=== PATIENT | male | born 1965 | race Two or more races ===

== ENCOUNTER 2021-02-03 16:22 | Outpatient (REF) | payer MEDICAID, SELFPAY ==
[2021-02-03 17:18] LABS: MANUAL DIFF FLAG NO
[2021-02-03 17:23] LABS: Basophils Absolute Auto 0.1 X10*3/uL (0.0-0.2); Basophils Percent Auto 0.8 % (0-2); Eosinophils Absolute Auto 0.2 X10*3/uL (0.0-0.4); Eosinophils Percent Auto 2.4 % (0-4); Hematocrit 46.9 % (42-52); Hemoglobin 15.2 g/dl (14.0-18.0); Imm Gran Abs Auto 0.03 X10*3/uL (0.00-0.03); Imm Gran Pct Auto 0.5 % (0.0-0.4); Lymphocytes Absolute Auto 1.8 X10*3/uL (1.2-4.9); Lymphocytes Percent Auto 27.2 % (20-40); Mean Corpuscular HGB Conc 32.4 g/dl (31.0-36.0); Mean Corpuscular Volume 92.5 fL (80-98); Mean Platelet Volume 10.7 fL (9.4-12.4); Monocytes Absolute Auto 0.5 X10*3/uL (0.1-1.2); Monocytes Percent Auto 7.9 % (2-11); Neutrophils Percent Auto 61.2 % (45-73); Platelet Count 216 X10*3/uL (160-400); Red Blood Count 5.07 X10*6/uL (4.60-5.80); Red Cell Distribution Width 12.7 % (11.0-16.0); White Blood Count 6.6 X10*3/uL (4.8-10.8)
[2021-02-03 17:52] LABS: Amylase 65 U/L (28-100); Anion Gap 15 (12-20); Blood Urea Nitrogen 19 mg/dL (9-16); C Reactive Protein 0.06 mg/dL (< or = 0.50); Calcium 9.5 mg/dL (8.4-10.2); Carbon Dioxide 25 mmol/L (22-29); Chloride 105 mmol/L (96-108); Estimated Glomerular Filt Rate 58; Glucose Random 84 mg/dL (60-115); Potassium 4.8 mmol/L (3.3-5.1); Sodium 140 mmol/L (135-145)
== END 2021-02-03 16:23 | disposition home or self-care (01) ==
LOC: HO.LAB 16:22
PROVIDERS: PCP Internal Medicine; Visit Provider Internal Medicine
DX: I10 Essential (primary) hypertension (principal); R68.2 Dry mouth, unspecified; M45.9 Ankylosing spondylitis of unspecified sites in spine
CPT/HCPCS: 36415; 80048; 82150; 85025; 86140

== ENCOUNTER 2021-02-06 12:24 | Emergency (ER) | payer MEDICAID, SELFPAY ==
--- NOTE | ~2021-02-06 | XR_ITS ---
EXAMINATION: XR CHEST CLINICAL INFORMATION: Chest pain COMPARISON: Chest x-ray 01/30/2020 TECHNIQUE: Frontal view of the chest was obtained. FINDINGS: No significant abnormality is noted involving the heart, lungs, mediastinum, bony thorax or soft tissues. XR/XR chest 1V IMPRESSION: Unremarkable chest examination.
[2021-02-06 12:49] VITALS: BP 135/86; PULSE 83; RESP 16; TEMP 36.6; O2SAT 99; BMI 24.4
[2021-02-06 12:57] VITALS: PULSE 94
--- NOTE | 2021-02-06 13:12 | ED.ARRPALP ---
HPI - Arrhythmia/Palpitations General Chief Complaint: Arrhythmia/Palpitations Stated Complaint: RAPID HEART RATE Time Seen by Provider: 02/06/21 12:48 History of Present Illness HPI narrative: This is a 55 years old man presented to the emergency department with a chief complaint of palpitations. Denies any shortness of breath, denies any fever. In the triage we did an EKG a was noted to be in SVT by the time I was brought in the treatment room was in sinus rhythm. He tells me that has been having intermittent the palpitation he has history of hypertension arthritis. complaint: rapid heart beat and heart racing Onset (ago): day(s) (1 day) Duration: intermittent Severity: moderate Context: occurred during rest Related Data Allergies Allergy/AdvReac Type Severity Reaction Status Date / Time No Known Allergies Allergy Verified 02/06/21 12:56 Review of Systems Review of Systems: Yes all other systems are reviewed and are negative Cardiovascular: Cardiovascular: Reports as per HPI Respiratory: Respiratory: Reports no additional respiratory complaints Gastrointestinal: Gastrointestinal: Reports no additional gastrointestinal complaints Neurologic: Reports system reviewed and no additional complaints, except as documented PMF Past Medical History Medical History Arthritis High cholesterol HTN (hypertension) Social History Social History Smoking Status: Never smoker Use of substances other than those prescribed or required for medical reasons: No Advance Directives: No Advance Directives Information Provided: No Physical Exam Vital Signs: Vital Signs: Last Vital Signs Temp 97.8 F 02/06/21 12:49 Pulse 64 02/06/21 14:41 Resp 14 02/06/21 14:41 BP 116/85 02/06/21 14:41 Pulse Ox 63 L 02/06/21 14:41 Body Mass Index 24.4 Const: Other: He looks well , not in distress sitting in the stretcher Orientation/consciousness: oriented to person, oriented to place, oriented to time and patient oriented x3 HENMT: Head: Yes normal to inspection and Yes No palpable skull fracture present Eyes: General: appearance normal, both eyes and all related structures Neck: Neck: Yes normal visual inspection and Yes full ROM Chest: Chest palpation & inspection: normal inspection of the chest and normal palpation of entire chest wall Resp: Effort & Inspection: normal respiratory effort and able to speak in complete sentences Cardio: Jugular venous distension: no JVD Rate: regular rate GI: Inspection: Yes normal to inspection Skin: General skin exam: no rashes or lesions noted and elasticity normal Neuro: General: oriented to person, oriented to place, oriented to time and patient oriented x3 Course Reevaluation(s) Reevaluation #1: Patient remaining in normal sinus rhythm ,I spoke with PCP Dr Barajas his PCP he will follow up,repeat ekg showes NSR 60.Per PCP will increase metoprolol to 50 BID Time: 15:04 MDM - Arrhythmia/Palpitations Lab Data Result diagrams: 02/06/21 13:09 02/06/21 13:08 Labs: Lab Results 02/06/21 02/06/21 02/06/21 Range/Units 13:08 13:09 13:09 WBC 5.6 (4.8-10.8) X10*3/uL RBC 5.12 (4.60-5.80) X10*6/uL Hgb 15.9 (14.0-18.0) g/dl Hct 47.1 (42-52) % MCV 92.0 (80-98) fL MCH 31.1 (27.0-33.0) pg MCHC 33.8 (31.0-36.0) g/dl RDW 12.5 (11.0-16.0) % Plt Count 191 (160-400) X10*3/uL MPV 10.9 (9.4-12.4) fL Immature Gran % (Auto) 0.4 (0.0-0.4) % Neut % (Auto) 48.9 (45-73) % Lymph % (Auto) 38.4 (20-40) % [place] % (Auto) 9.6 (2-11) % Eos % (Auto) 1.8 (0-4) % Baso % (Auto) 0.9 (0-2) % Lymph # (Auto) 2.2 (1.2-4.9) X10*3/uL [place] # (Auto) 0.5 (0.1-1.2) X10*3/uL Eos # (Auto) 0.1 (0.0-0.4) X10*3/uL Baso # (Auto) 0.1 (0.0-0.2) X10*3/uL Abs Immat Gran (auto) 0.02 (0.00-0.03) X10*3/uL Absolute Neuts (auto) 2.8 (2.0-8.3) X10*3/uL Absolute Nucleated RBC 0.000 (0.0-0.012) X10*3/uL Nucleated RBC % (auto) 0.0 (0.0-0.2) /100WBC PT 13.0 (10.8-13.0) SEC INR 1.1 (0.9-1.1) Troponin I High Sens 6.9 (<3.5-35.0) ng/L ECG Data Attestation: I personally reviewed and interpreted this ECG as follows: ECG interpretation date: 02/06/21 ECG interpretation time: 15:27 Pacemaker model: SVT rate 154 Discharge Plan Discharge Clinical Impression: SVT (supraventricular tachycardia) Patient Disposition: Home, Self-Care Instructions: Supraventricular Tachycardia (ED) Additional Instructions: Please follow-up with your primary care physician you have been seen in today because you had palpitation we discovered that you had an arrhythmia called supraventricular tachycardia. Increase your metoprolol to 50 mg twice a day.
[2021-02-06 13:16] LABS: MANUAL DIFF FLAG NO
[2021-02-06 13:22] LABS: Basophils Absolute Auto 0.1 X10*3/uL (0.0-0.2); Basophils Percent Auto 0.9 % (0-2); Eosinophils Absolute Auto 0.1 X10*3/uL (0.0-0.4); Eosinophils Percent Auto 1.8 % (0-4); Hematocrit 47.1 % (42-52); Hemoglobin 15.9 g/dl (14.0-18.0); Imm Gran Abs Auto 0.02 X10*3/uL (0.00-0.03); Imm Gran Pct Auto 0.4 % (0.0-0.4); Lymphocytes Absolute Auto 2.2 X10*3/uL (1.2-4.9); Lymphocytes Percent Auto 38.4 % (20-40); Mean Corpuscular HGB Conc 33.8 g/dl (31.0-36.0); Mean Corpuscular Hemoglobin 31.1 pg (27.0-33.0); Mean Platelet Volume 10.9 fL (9.4-12.4); Monocytes Absolute Auto 0.5 X10*3/uL (0.1-1.2); Monocytes Percent Auto 9.6 % (2-11); Neutrophils Absolute Auto 2.8 X10*3/uL (2.0-8.3); Neutrophils Percent Auto 48.9 % (45-73); Platelet Count 191 X10*3/uL (160-400); Red Blood Count 5.12 X10*6/uL (4.60-5.80); Red Cell Distribution Width 12.5 % (11.0-16.0); White Blood Count 5.6 X10*3/uL (4.8-10.8)
[2021-02-06] MEDS: Acetaminophen 325 MG TABLET 650 MG PO (13:23)
[2021-02-06 13:24] VITALS: BP 129/89; PULSE 86
[2021-02-06 13:24] LABS: INTERNATIONAL NORM RATIO 1.1 (0.9-1.1)
[2021-02-06] MEDS: 0.9 % Sodium Chloride 1,000 ML 999 ML IVCONT (13:24)
[2021-02-06] MEDS: atenoloL 50 MG TABLET PO (13:24)
[2021-02-06 13:25] VITALS: BP 129/89; PULSE 86; RESP 16; O2SAT 97
[2021-02-06 13:56] LABS: Troponin-I High Sensitivity 6.9 ng/L (<3.5-35.0)
[2021-02-06 14:41] VITALS: BP 116/85; PULSE 64; RESP 14; O2SAT 63
--- NOTE | 2021-02-06 14:45 | PC.NURSE ---
pt states decreased headache. nsr on monitor with less pvc noted, hr 60s. Pt reports mild neck and chest pressure. awaiting dispo.
--- NOTE | 2021-02-06 15:20 | ECG_ITS ---
Test Reason : PALPITATIONS Blood Pressure : / mmHG Vent. Rate : 060 BPM Atrial Rate : 060 BPM P-R Int : 168 ms QRS Dur : 080 ms QT Int : 434 ms P-R-T Axes : 062 029 041 degrees QTc Int : 434 ms Normal sinus rhythm Normal ECG When compared with ECG of 06-FEB-2021 12:32, Vent. rate has decreased BY [address] no longer depressed in Inferior leads ST no longer depressed in Lateral leads Referred By: Liborio Scott Electronically Signed By:Davian Reyes
--- NOTE | 2021-02-07 07:45 | ECG_ITS ---
Test Reason : WEAKNESS Blood Pressure : / mmHG Vent. Rate : 154 BPM Atrial Rate : 150 BPM P-R Int : 000 ms QRS Dur : 096 ms QT Int : 284 ms P-R-T Axes : 000 041 071 degrees QTc Int : 454 ms Supraventricular tachycardia Nonspecific ST and T wave abnormality Abnormal ECG When compared with ECG of 30-JAN-2020 17:19, Fusion complexes are no longer Present Premature ventricular complexes are no longer Present Referred By: Liborio Scott Electronically Signed By:Davian Reyes
== END 2021-02-06 16:19 | disposition home or self-care (01) ==
PROVIDERS: Emergency Provider Emergency Medicine; PCP Internal Medicine
DX: I47.1 Supraventricular tachycardia (principal); R00.2 Palpitations; I10 Essential (primary) hypertension; E78.00 Pure hypercholesterolemia, unspecified
CPT/HCPCS: 36415; 71045; 84484; 85025; 85610; 93005; 96360; 99284; 99285

== ENCOUNTER → 2021-02-12 14:19 | Outpatient (BNVA) | payer MEDICAID, SELFPAY | PROVIDERS: PCP Internal Medicine; Visit Provider Internal Medicine Cardiovascular Disease | DX: I47.1 Supraventricular tachycardia (principal) | CPT/HCPCS: 99202 ==

== ENCOUNTER → 2021-02-13 08:14 | Outpatient (REF) | payer MEDICAID, SELFPAY ==
--- NOTE | 2021-02-13 08:18 | CA_ITS ---
Transthoracic Echocardiogram Patient (Last, First, Middle): Troy Lion, Gender: Male Date of : 1965 Age: 55 Procedure Date: 02/13/2021 Procedure Type: Transthoracic Echocardiogram Location: OP Height: 175.26 cm Weight: 83.46 kg BSA: 1.99 m2 Heart Rate: bpm BP: 118 / 76 mmHg Automotive Buyer: DSG Referring MD: Davian Reyes MD Symptoms: I47.1 - Supraventricular tachycardia Study Quality: Fair ECG Rhythm: Sinus Conclusions: - The left ventricular systolic function is normal. The visually estimated ejection fraction is between 55-60%. - No obvious valvular pathology seen on this study. Findings Left Ventricle Normal left ventricular cavity size. There is normal left ventricular wall thickness. The left ventricular systolic function is normal. The visually estimated ejection fraction is between 55-60%. There is no evidence of regional wall motion abnormalities. Diastolic function is normal for age. E/E prime ratio is <8, consistent with normal filling pressures. Right Ventricle Normal right ventricular cavity size and systolic function. Atria The left atrium is normal in size. The right atrium is normal in size. Aortic Valve There is a normal trileaflet aortic valve. There is no aortic valve stenosis. There is no aortic valve regurgitation. Mitral Valve The mitral valve appears normal. There is no mitral valve regurgitation. There is no mitral valve stenosis. Pulmonic Valve The pulmonic valve was not well visualized. Tricuspid Valve Normal tricuspid valve structure. There is trace tricuspid valve regurgitation. The pulmonary artery systolic pressure is normal. Great Vessels The aortic annulus, sinuses of valsalva, and asc aorta are normal in size. Venous The inferior vena cava is normal in size and collapses greater than 50% with inspiration. Pericardium/Pleural There is no evidence of pericardial effusion. Prior Study Comparison No significant change compared to prior study dated: 06/04/2021. Recommendations, Care & Conclusions No obvious valvular pathology seen on this study. Measurements 2D Linear Measurements IVSd: 0.96 0.6-0.9/0.6-1.0 cm LVIDd: 5.56 3.9-5.3/4.2-5.9 cm LVIDd Index: 2.79 2.4-3.2/2.2-3.1 cm/m2 LVIDs: 3.74 2.0-3.6 cm LVPWd: 1.09 0.7-1.1 cm Ao Root: 2.90 2.1-3.5 cm LA Diam: 3.30 2.7-3.8/3.0-4.0 cm LAIDs Index: 1.66 1.5-2.3 cm/m2 LV Mass: 278.68 67-162/88-224 g LV Mass Index: 140.04 43-95/49-115 g/m2 LVOT Diam: 2.30 3.0+(-)1.3 cm 2D Systolic Function EF 4C: 55.50 >55% EF 2C: 54.90 >55% EF BiP: 56.00 >55% Mitral Valve MV Pk E: 0.56 MV PK A: 0.48 MV Decel Time: 257.00 E/A: 1.20 E'Lateral: 9.38 E'Medial: 6.48 E/E' Med: 8.60 E/E' Lat: 5.90 PHT: 75.00 MVA PHT: 2.93 Decel Morrison: 2.17 Aortic Valve AoV Pk Jovi: 1.24 AoV Pk Grad: 6.00 LVOT LVOT Pk Jovi: 0.77 LVOT Mn Jovi: 0.49 LVOT VTI: 0.16 LVOT Pk Grad: 2.00 LVOT Mn Grad: 1.00 LVOT Diam: 2.30 LVOT Area: 4.15 Diastolic Function MV Pk E: 0.56 MV Pk A: 0.48 E/A: 1.20 E'Medial: 6.48 E/E' Med: 8.60 E' Laterial: 9.38 E/E' Lat: 5.90 Tricuspid Valve TR Pk Jovi: 2.36 TR Pk Grad: 22.00 RA Press: 3.00 RVSP: 25.00 Great Vessels Aorta Ao Root-2D: 2.90 2.0-3.7 cm Ao Asc: 3.20 2.1-3.4 cm Updated in Other Vendor System with Status of Final Ihsan Lira MD electronically signed on 02/14/2021 12:46:34 PM with status of Final
== END ==
LOC: HO.CARD 08:14
PROVIDERS: PCP Internal Medicine; Visit Provider Internal Medicine Cardiovascular Disease
DX: I47.1 Supraventricular tachycardia (principal)
CPT/HCPCS: 93306

== ENCOUNTER 2021-05-05 11:31 | Outpatient (REF) | payer MEDICAID, SELFPAY ==
[2021-05-05 14:21] LABS: Influenza A PCR NEGATIVE (Negative); Influenza B PCR NEGATIVE (Negative); Resp Syncy Virus RNA Qual PCR NEGATIVE (Negative); SARS COV2 PCR INHOUSE NEGATIVE (Negative)
== END 2021-05-05 11:32 | disposition home or self-care (01) ==
LOC: HO.LNP 11:31
PROVIDERS: Visit Provider Internal Medicine
DX: R19.7 Diarrhea, unspecified (principal); M79.10 Myalgia, unspecified site
CPT/HCPCS: 0241U

== ENCOUNTER 2021-05-06 12:14 | Outpatient (REF) | payer MEDICAID, SELFPAY ==
[2021-05-06 13:57] LABS: Basophils Percent Auto 0.9 % (0-2); Eosinophils Absolute Auto 0.1 X10*3/uL (0.0-0.4); Eosinophils Percent Auto 2.4 % (0-4); Hematocrit 43.2 % (42-52); Hemoglobin 14.5 g/dl (14.0-18.0); Imm Gran Abs Auto 0.02 X10*3/uL (0.00-0.03); Imm Gran Pct Auto 0.4 % (0.0-0.4); Lymphocytes Absolute Auto 1.9 X10*3/uL (1.2-4.9); MANUAL DIFF FLAG SCAN; Mean Corpuscular HGB Conc 33.6 g/dl (31.0-36.0); Mean Corpuscular Hemoglobin 30.5 pg (27.0-33.0); Mean Corpuscular Volume 90.9 fL (80-98); Mean Platelet Volume 10.6 fL (9.4-12.4); Monocytes Absolute Auto 0.5 X10*3/uL (0.1-1.2); Monocytes Percent Auto 10.2 % (2-11); Neutrophils Percent Auto 44.1 % (45-73); Platelet Count 222 X10*3/uL (160-400); Red Blood Count 4.75 X10*6/uL (4.60-5.80); Red Cell Distribution Width 12.1 % (11.0-16.0); SCAN SMEAR FLAG 1; White Blood Count 4.6 X10*3/uL (4.8-10.8)
[2021-05-06 14:27] LABS: Alanine Aminotransferase 31 U/L (0-40); Albumin Level 4.2 g/dL (3.5-5.0); Alkaline Phosphatase 45 U/L (39-117); Anion Gap 13 (12-20); Aspartate Amino Transferase 38 U/L (5-37); Bilirubin Total 0.4 mg/dL (0.0-1.0); Blood Urea Nitrogen 16 mg/dL (9-16); C Reactive Protein 4.44 mg/dL (< or = 0.50); Calcium 9.4 mg/dL (8.4-10.2); Carbon Dioxide 23 mmol/L (22-29); Chloride 108 mmol/L (96-108); Estimated Glomerular Filt Rate 58; Glucose Random 89 mg/dL (60-115); Potassium 3.5 mmol/L (3.3-5.1); Sodium 140 mmol/L (135-145); Total Protein 7.6 g/dL (6.5-8.0)
[2021-05-06 14:39] LABS: SLIDE REVIEW VERIFIED
== END 2021-05-06 12:15 | disposition home or self-care (01) ==
LOC: HO.10HDL 12:14
PROVIDERS: Visit Provider Internal Medicine
DX: R10.9 Unspecified abdominal pain (principal); N20.0 Calculus of kidney; R19.7 Diarrhea, unspecified; I10 Essential (primary) hypertension
CPT/HCPCS: 36415; 80053; 85025; 86140

== ENCOUNTER 2021-05-14 10:42 | Outpatient (REF) | payer MEDICAID, SELFPAY ==
--- NOTE | ~2021-05-14 | CT_ITS ---
EXAMINATION: CT ABDOMEN AND PELVIS WITHOUT CONTRAST CLINICAL INFORMATION: Abdominal pain, diarrhea and kidney stones. COMPARISON: Previous CT of the abdomen and pelvis most recent August 2016 TECHNIQUE: Multidetector volumetric imaging was performed from the superior aspect of the liver through the pubic symphysis. Sagittal and coronal reformatted images were obtained on the technologist's workstation. This CT examination was performed using dose optimization techniques as appropriate, variously including the following: *Automated exposure control *Adjustment of mA and/or kV according to patient size (this includes techniques or standardized protocols for targeted exams where dose is matched to indication/reason for exam; i.e. extremities or head) *Use of iterative reconstruction technique DLP: 490 mGy-cm FINDINGS: LUNG BASES: There is a 4 mm left lower lobe nodule axial image 7 series 7 that is stable. Lung bases are otherwise clear. LIVER, GALLBLADDER, AND BILIARY TREE: The liver is normal in size, shape, and attenuation. No focal hepatic lesion or biliary ductal dilatation is present. The gallbladder is unremarkable with no evidence of radiopaque gallstones, gallbladder wall thickening, or obvious pericholecystic inflammatory changes. PANCREAS: Unremarkable. SPLEEN: Unremarkable. ADRENAL GLANDS: Unremarkable. KIDNEYS AND URETERS: No renal stone is seen. There is a 1 cm low-attenuation lesion in the lower pole of the right kidney probably representing a cyst. There is a small 8 mm peripelvic cyst in the lower pole of the left kidney. No ultrasound followup indicated. The kidneys are otherwise unremarkable. BLADDER: There is question of tiny layering dependent stones in the bladder versus area of bladder wall calcification. The bladder is not optimally distended. GASTROINTESTINAL TRACT: The small and large bowel are unremarkable. The appendix is not identified with certainty. No inflammatory changes are seen in the right lower quadrant. ABDOMINAL WALL: There are postsurgical changes from ventral and suprapubic hernia repair with mesh. LYMPH NODES: There are small, small bowel mesentery lymph nodes. No enlarged lymph nodes are seen. VASCULAR: Unremarkable. PELVIC VISCERA: The prostate gland is slightly enlarged and measures 4 x 5.5 cm in AP and transverse dimension. OSSEOUS STRUCTURES: Unremarkable. CT/CT abdomen pelvis wo con IMPRESSION: No kidney stone seen. Small bilateral renal cysts. Question small dependent layering bladder stones versus area of bladder wall calcification.
== END 2021-05-14 10:43 | disposition home or self-care (01) ==
LOC: HO.CT 10:42
PROVIDERS: PCP Internal Medicine; Visit Provider Internal Medicine
DX: R10.0 Acute abdomen (principal); N20.0 Calculus of kidney
CPT/HCPCS: 74176

== ENCOUNTER → 2021-06-04 10:17 | Outpatient (BNVA) | payer MEDICAID, SELFPAY | PROVIDERS: PCP Internal Medicine; Referring Provider Internal Medicine; Visit Provider Internal Medicine Cardiovascular Disease | DX: I47.1 Supraventricular tachycardia (principal) | CPT/HCPCS: 99212 ==

== ENCOUNTER 2021-06-24 09:10 | Outpatient (REF) | payer MEDICAID, SELFPAY ==
[2021-06-24 10:07] LABS: MANUAL DIFF FLAG NO
[2021-06-24 10:15] LABS: Basophils Absolute Auto 0.1 X10*3/uL (0.0-0.2); Basophils Percent Auto 1.1 % (0-2); Eosinophils Absolute Auto 0.2 X10*3/uL (0.0-0.4); Eosinophils Percent Auto 3.6 % (0-4); Hematocrit 44.4 % (42-52); Hemoglobin 14.6 g/dl (14.0-18.0); Imm Gran Abs Auto 0.02 X10*3/uL (0.00-0.03); Imm Gran Pct Auto 0.3 % (0.0-0.4); Lymphocytes Absolute Auto 2.5 X10*3/uL (1.2-4.9); Lymphocytes Percent Auto 38.7 % (20-40); Mean Corpuscular HGB Conc 32.9 g/dl (31.0-36.0); Mean Corpuscular Hemoglobin 29.9 pg (27.0-33.0); Mean Platelet Volume 10.4 fL (9.4-12.4); Monocytes Absolute Auto 0.5 X10*3/uL (0.1-1.2); Monocytes Percent Auto 8.4 % (2-11); Neutrophils Absolute Auto 3.1 X10*3/uL (2.0-8.3); Neutrophils Percent Auto 47.9 % (45-73); Platelet Count 205 X10*3/uL (160-400); Red Blood Count 4.88 X10*6/uL (4.60-5.80); Red Cell Distribution Width 12.6 % (11.0-16.0); White Blood Count 6.5 X10*3/uL (4.8-10.8)
[2021-06-24 10:17] LABS: INTERNATIONAL NORM RATIO 1.1 (0.9-1.1); Prothrombin Time 12.4 SEC (9.9-13.0)
[2021-06-24 11:25] LABS: Anion Gap 14 (12-20); Blood Urea Nitrogen 27 mg/dL (9-16); Calcium 9.3 mg/dL (8.4-10.2); Carbon Dioxide 23 mmol/L (22-29); Chloride 105 mmol/L (96-108); Estimated Glomerular Filt Rate 59; Glucose Random 99 mg/dL (60-115); Potassium 3.9 mmol/L (3.3-5.1); Sodium 138 mmol/L (135-145)
== END 2021-06-24 09:11 | disposition home or self-care (01) ==
LOC: HO.LAB 09:10
PROVIDERS: PCP Internal Medicine; Visit Provider Internal Medicine Cardiovascular Disease
DX: I47.1 Supraventricular tachycardia (principal)
CPT/HCPCS: 36415; 80048; 85025; 85610

== ENCOUNTER → 2021-07-01 10:10 | Outpatient (BNVA) | payer MEDICAID, SELFPAY | PROVIDERS: PCP Internal Medicine; Visit Provider Urology | DX: N20.0 Calculus of kidney (principal); R39.12 Poor urinary stream; R35.1 Nocturia; N40.1 Benign prostatic hyperplasia with lower urinary tract symptoms; N13.8 Other obstructive and reflux uropathy; I10 Essential (primary) hypertension; E78.00 Pure hypercholesterolemia, unspecified | CPT/HCPCS: 99202 ==

== ENCOUNTER 2021-07-06 09:12 | Emergency (ER) | payer MEDICAID, SELFPAY ==
[2021-07-06 09:25] VITALS: BP 128/65; PULSE 68; RESP 18; TEMP 36.2; O2SAT 96; BMI 26.2
--- NOTE | 2021-07-06 09:34 | ED.EYEPROB ---
HPI - Eye Problem General Chief complaint: Eye Problems Stated complaint: EYE ISSUE Time Seen by Provider: 07/06/21 09:31 Source: patient Mode of arrival: ambulatory Limitations: no limitations History of Present Illness HPI Narrative: 54 y/o male presenting with right eye itching and redness for the last 3 days. He reports when it first started he felt like there was something in his eye but it resolved after itching it. His right eye has been watering more and been very itchy. When he woke up this morning it was crusted shut with yellow crusts. He has had no URI symptoms. No vision changes. MD chief complaint: eye pain and eye redness Onset (ago): day(s) (4) Onset description: gradual Duration: constant Location: right eye Eye Symptoms: redness, itching and discharge Place: home Mechanism: none Severity: moderate Severity scale (1-10): 5 If Pain, Quality: aching Associated symptoms: none Treatments Prior to Arrival: OTC eye drops Related Data Patient tetanus UTD: Yes Home Medications Medication Instructions Recorded Confirmed losartan 25 mg tablet 25 mg PO DAILY 02/12/21 02/12/21 metoprolol tartrate 25 mg tablet 25 mg PO BID 02/12/21 02/12/21 tenofovir disoproxil fumarate 300 300 mg PO DAILY 02/12/21 02/12/21 mg tablet (Viread) omeprazole 20 mg capsule,delayed 20 mg PO BID 07/01/21 release Previous Rx's Medication Instructions Recorded finasteride 5 mg tablet 5 mg PO DAILY 90 Days #90 tab 07/01/21 terazosin 5 mg capsule 5 mg PO BEDTIME 30 Days #30 cap 07/01/21 cetirizine 10 mg tablet (Zyrtec) 10 mg PO DAILY #14 tab 07/06/21 polymyxin B sulfate 10,000 1 drp OPHTHALMIC (EYE) Q3H 7 Days 07/06/21 unit-trimethoprim 1 mg/mL eye #10 ml drops (Polytrim) Allergies Allergy/AdvReac Type Severity Reaction Status Date / Time No Known Allergies Allergy Verified 07/01/21 10:27 Review of Systems Constitutional: Constitutional: Denies chills, Denies fever(s) and Denies headache(s) Eyes: Eyes: Reports no additional eye complaints, Reports eye discharge, Denies dry eyes, Reports irritation, Reports itchy eyes, Denies loss of peripheral vision, Denies loss of vision, Reports eye pain and Denies photophobia ENT: Denies headache(s) Cardiovascular: Cardiovascular: Denies dyspnea Respiratory: Respiratory: Denies cough, Denies dyspnea and Denies wheezing Integumentary/Breasts: Skin/Breast: Reports pruritus Neurologic: Denies headache(s) and Denies loss of vision Allergic/Immunologic: Allergic/Immunologic: Denies urticaria, Reports itchy eyes, Denies seasonal rhinorrhea and Denies wheezing PMFSH Past Medical History Attestation statement: The following information was validated with the patient. Medical History Arthritis High cholesterol HTN (hypertension) Surgical History History of hernia surgery Family History Family History Mother CAD (coronary artery disease) Father No problems noted. Social History Social History Alcohol intake: never Patient Tobacco Use Status: Never used Tobacco Advance Directives: Yes Advance Directives Information Provided: Yes Advance Directives on File: No Physical Exam Vital Signs: Vital Signs: Last Vital Signs Temp 97.2 F 07/06/21 09:25 Pulse 68 07/06/21 09:25 Resp 18 07/06/21 09:25 BP 128/65 07/06/21 09:25 Pulse Ox 96 07/06/21 09:25 Body Mass Index 26.2 Const: General: cooperative, healthy appearing, comfortable and no acute distress Orientation/consciousness: patient oriented x3 HENMT: Head: Yes normal to inspection, Yes normocephalic and Yes atraumatic Ears: hearing grossly normal bilaterally General nose exam: Normal external nose present and Normal nares present Face and sinus: Yes normal facial exam and Yes face symmetric Mouth: Normal oral and palatal mucosa present, lip normal, tongue normal and moist mucous membranes Teeth and gingiva: dentition normal and gingiva normal Throat: Yes posterior oropharynx normal, Yes tonsils normal and Yes uvula midline Eyes: General: appearance normal, both eyes and all related structures Alignment and Position: alignment normal Periorbital: periorbital findings normal Eyelids: Yes eyelids normal Conjunctivae: conjunctival abnormal right conjunctival injection diffuse and discharge mucoid Corneas: corneas normal and fluorescein used Pupils: Equal, round and reactive pupils present EOM: EOMs intact bilaterally Direct Ophthalmoscopy: No photophobia Neck: Neck: Yes normal visual inspection, Yes full ROM and Yes no lymphadenopathy Chest: Chest palpation & inspection: normal inspection of the chest Resp: Effort & Inspection: normal respiratory effort and able to speak in complete sentences Skin: General skin exam: no rashes or lesions noted Neuro: General: patient oriented x3, gait normal, tone normal and moves all extremities Cranial nerves: Yes Equal, round and reactive pupils present Extrem: General: Yes normal to inspection Psych: Appearance: grossly normal and well kempt Mental Status: mental status grossly normal Speech and movement: Normal speech and movement present Course Course Course Narrative: 55 yo male presenting with reddened itchy right eye with mucoid drainage. No abrasions seen under wood's lamp. Clinical presentation is consistent with conjunctivitis. Will start polymyxin drops and zyrtec for possible allergy component as well. Stable for d/c home. Discharge Plan Discharge Clinical Impression: Bacterial conjunctivitis Patient Disposition: Home, Self-Care Instructions: Conjunctivitis (ED) Additional Instructions: Use warm compresses to your eye as needed for itching. Do your best to to scratch or itch the eye. Use the prescribed eye drops as directed. Follow up with your doctor as needed. Prescriptions: New cetirizine [Zyrtec] 10 mg tablet 10 mg PO DAILY Qty: 14 RF: 0 polymyxin B sulf-trimethoprim [Polytrim] 10,000 unit- 1 mg/mL drops 1 drp ophthalmic (eye) Q3H 7 Days Qty: 10 RF: 0 No Action losartan 25 mg tablet 25 mg PO DAILY RF: 0 metoprolol tartrate 25 mg tablet 25 mg PO BID RF: 0 tenofovir disoproxil fumarate [Viread] 300 mg tablet 300 mg PO DAILY RF: 0 finasteride 5 mg tablet 5 mg PO DAILY 90 Days Qty: 90 RF: 1 terazosin 5 mg capsule 5 mg PO BEDTIME 30 Days Qty: 30 RF: 1
[2021-07-06] MEDS: Tetracaine HCl/PF 0.5% Oph Sol 4 ML DROPS 1 DROP EYE-RIGHT (09:41)
[2021-07-06] MEDS: Fluorescein Sodium STRIP 1 STRIP EYE-RIGHT (09:41)
== END 2021-07-06 10:03 | disposition home or self-care (01) ==
PROVIDERS: Emergency Provider Emergency Medicine; PCP Internal Medicine
DX: H10.31 Unspecified acute conjunctivitis, right eye (principal); Z79.899 Other long term (current) drug therapy
CPT/HCPCS: 99283

== ENCOUNTER → 2021-09-28 09:24 | Outpatient (BNVA) | payer MEDICAID, SELFPAY | PROVIDERS: PCP Internal Medicine; Referring Provider Internal Medicine; Visit Provider Internal Medicine Cardiovascular Disease | DX: I47.1 Supraventricular tachycardia (principal); I49.3 Ventricular premature depolarization | CPT/HCPCS: 93005; 99212 ==

== ENCOUNTER → 2021-12-24 10:05 | Outpatient (BNVA) | payer MEDICAID, SELFPAY | PROVIDERS: PCP Internal Medicine; Referring Provider Internal Medicine; Visit Provider Internal Medicine Cardiovascular Disease | DX: I49.3 Ventricular premature depolarization (principal); I47.1 Supraventricular tachycardia | CPT/HCPCS: 99212 ==

== ENCOUNTER → 2022-08-11 14:28 | Outpatient (BNVA) | payer MEDICAID, SELFPAY | PROVIDERS: PCP Internal Medicine; Referring Provider Internal Medicine; Visit Provider Internal Medicine Cardiovascular Disease | DX: I49.3 Ventricular premature depolarization (principal); I47.1 Supraventricular tachycardia; I10 Essential (primary) hypertension | CPT/HCPCS: 93005; 99212 ==

== ENCOUNTER 2022-12-06 12:10 | Outpatient (REF) | payer MEDICAID, SELFPAY ==
[2022-12-06 13:37] LABS: MANUAL DIFF FLAG NO
[2022-12-06 14:23] LABS: Basophils Absolute Auto 0.1 X10*3/uL (0.0-0.2); Eosinophils Absolute Auto 0.1 X10*3/uL (0.0-0.4); Eosinophils Percent Auto 1.7 % (0-4); Hemoglobin 14.5 g/dl (14.0-18.0); Imm Gran Abs Auto 0.03 X10*3/uL (0.00-0.03); Imm Gran Pct Auto 0.4 % (0.0-0.4); Lymphocytes Absolute Auto 1.6 X10*3/uL (1.2-4.9); Lymphocytes Percent Auto 20.5 % (20-40); Mean Corpuscular HGB Conc 32.2 g/dl (31.0-36.0); Mean Corpuscular Hemoglobin 29.7 pg (27.0-33.0); Mean Corpuscular Volume 92.2 fL (80.0-98.0); Monocytes Absolute Auto 0.7 X10*3/uL (0.1-1.2); Monocytes Percent Auto 9.1 % (2-11); Neutrophils Absolute Auto 5.2 x10*3/uL (2.0-8.3); Neutrophils Percent Auto 67.3 % (45-73); Platelet Count 215 X10*3/uL (160-400); Red Blood Count 4.88 X10*6/uL (4.60-5.80); Red Cell Distribution Width 12.6 % (11.0-16.0); White Blood Count 7.7 X10*3/uL (4.8-10.8)
[2022-12-06 14:37] LABS: Alanine Aminotransferase 15 U/L (0-40); Albumin Level 4.2 g/dL (3.5-5.0); Alkaline Phosphatase 80 U/L (39-117); Amylase 132 U/L (28-100); Anion Gap 11 (12-20); Aspartate Amino Transferase 18 U/L (5-37); Bilirubin Total 0.6 mg/dL (0.0-1.0); Blood Urea Nitrogen 26 mg/dL (9-16); C Reactive Protein 0.28 mg/dL (< or = 0.50); Calcium 9.3 mg/dL (8.4-10.2); Carbon Dioxide 26 mmol/L (22-29); Chloride 106 mmol/L (96-108); Estimated Glomerular Filt Rate 57; Glucose Random 92 mg/dL (60-115); Potassium 4.4 mmol/L (3.3-5.1); Sodium 139 mmol/L (135-145); Total Protein 7.7 g/dL (6.5-8.0)
== END 2022-12-06 12:11 | disposition home or self-care (01) ==
LOC: HO.10HDL 12:10
PROVIDERS: Visit Provider Internal Medicine
DX: I10 Essential (primary) hypertension (principal); R60.0 Localized edema; Z86.79 Personal history of other diseases of the circulatory system
CPT/HCPCS: 36415; 80053; 82150; 85025; 86140

== ENCOUNTER 2023-03-28 16:42 | Emergency (ER) | payer MEDICAID, SELFPAY ==
--- NOTE | ~2023-03-28 | CT_ITS ---
EXAMINATION: CT ABDOMEN AND PELVIS WITHOUT CONTRAST CLINICAL INFORMATION: Right-sided abdominal pain COMPARISON: CT abdomen and pelvis without contrast 05/14/2021 TECHNIQUE: Multidetector volumetric imaging was performed from the superior aspect of the liver through the pubic symphysis. Sagittal and coronal reformatted images were obtained on the technologist's workstation. This CT examination was performed using dose optimization techniques as appropriate, variously including the following: *Automated exposure control *Adjustment of mA and/or kV according to patient size (this includes techniques or standardized protocols for targeted exams where dose is matched to indication/reason for exam; i.e. extremities or head) *Use of iterative reconstruction technique DLP: 549 mGy-cm FINDINGS: LUNG BASES: There is a 6 mm nodule left lung base image 12/5, previously measured 4 mm. Minimal atelectatic changes or scarring seen in lingula and both lung bases. There is a calcified 6 mm pulmonary nodule. LIVER, GALLBLADDER, AND BILIARY TREE: The liver is normal in size, shape, and attenuation. No focal hepatic lesion or biliary ductal dilatation is present. The gallbladder is unremarkable with no evidence of radiopaque gallstones, gallbladder wall thickening, or obvious pericholecystic inflammatory changes. PANCREAS: Unremarkable. SPLEEN: Unremarkable. ADRENAL GLANDS: Unremarkable. KIDNEYS AND URETERS: The kidneys are normal in size, shape, and attenuation. No hydronephrosis, hydroureter, or calculi seen. No perinephric stranding. BLADDER: Unremarkable. GASTROINTESTINAL TRACT: There is large amount of stool seen in colon without significant distention. Mild prominent small bowel loops in the right lower quadrant. Appendix is normal caliber. No free fluid or inflammatory process seen. ABDOMINAL WALL: There is evidence of previous abdominal wall hernia repair with mesh in place. LYMPH NODES: Normal. VASCULAR: Unremarkable. PELVIC VISCERA: There is no free air or free fluid. The prostate gland is moderately enlarged. No evidence of hernia or abnormal-sized lymph nodes. OSSEOUS STRUCTURES: No aggressive lytic or sclerotic process seen. CT/CT abdomen pelvis wo IV con IMPRESSION: Mild constipation. Nonspecific mild prominence of ileal loops in the right lower quadrant, question secondary to constipation. No free air or inflammatory process seen. Abdominal wall hernia repair with mesh in place, stable. Fleischner guidelines were followed.
--- NOTE | 2023-03-28 17:23 | ED_ITS ---
HPI - Abdominal Pain General Chief Complaint: Abdominal Pain Stated Complaint: abd pain Time Seen by Provider: 03/28/23 21:15 Source: patient Mode of arrival: ambulatory Limitations: no limitations History of Present Illness HPI narrative: 57-year-old male history of hypertension presented with right-sided abdominal pain. Patient describes the pain as dull aching pain constant for the past 3 days, pain is moderate about 7/10, associated with nausea but no vomiting, had a normal bowel movement and passing flatus, patient past surgical history is significant for laparoscopic hernia repair in the past, patient declined any dysuria, hematuria, or frequency urination. Related Data Home Medications Medication Instructions Recorded Confirmed tenofovir disoproxil fumarate 300 300 mg PO DAILY 02/12/21 08/11/22 mg tablet (Viread) omeprazole 20 mg capsule,delayed 20 mg PO BID 07/01/21 08/11/22 release cetirizine 10 mg tablet (Zyrtec) 10 mg PO DAILY PRN 09/28/21 08/11/22 metoprolol tartrate 50 mg tablet 50 mg PO BID 12/24/21 08/11/22 mexiletine 200 mg capsule 200 mg PO BID 08/11/22 08/11/22 Previous Rx's Medication Instructions Recorded terazosin 5 mg capsule 5 mg PO BEDTIME 30 days #30 caps 07/01/21 polymyxin B sulfate 10,000 1 drp ophthalmic (eye) Q3H 7 days 07/06/21 unit-trimethoprim 1 mg/mL eye #10 mL drops (Polytrim) Allergies Allergy/AdvReac Type Severity Reaction Status Date / Time No Known Allergies Allergy Verified 08/11/22 14:52 Review of Systems Review of Systems All other systems are reviewed and are negative Constitutional: Reports as per HPI and Reports no additional constitutional complaints Eyes: Reports as per HPI and Reports no additional eye complaints Reports system reviewed and no additional complaints, except as documented Cardiovascular: Reports as per HPI and Reports no additional cardiovascular complaints Respiratory: Reports as per HPI and Reports no additional respiratory complaints Gastrointestinal: Reports as per HPI and Reports no additional gastrointestinal complaints Genitourinary: Reports no additional female genitourinary complaints Musculoskeletal: Reports no additional musculoskeletal complaints Skin/Breast: Reports system reviewed and no additional complaints, except as docu Psychiatric: Reports no additional psychiatric complaints Endocrine: Reports no additional endocrine complaints Hematologic/Lymphatic: Reports no additional hematologic/lymphatic complaints Allergic/Immunologic: Reports no additional allergic/immunologic complaints Reports system reviewed and no additional complaints, except as documented and Reports Abnormal speech present [facility] Past Medical History Medical History Arthritis High cholesterol HTN (hypertension) Surgical History History of hernia surgery Family History Family History Mother CAD (coronary artery disease) Father No problems noted. Social History Social History Alcohol intake: never Patient Tobacco Use Status: Never used Tobacco Smoked in Last 30 Days: No Use of substances other than those prescribed or required for medical reasons: No Advance Directives: No Advance Directives Information Provided: Yes Physical Exam ED Vital Signs: Vital Signs - 24 hr 03/28/23 17:24 03/28/23 21:29 Temperature 97.9 F 98.7 F Pulse Rate 90 85 Respiratory Rate 20 16 Blood Pressure 146/86 H 124/80 Pulse Oximetry 99 98 Oxygen Delivery Method Room Air Room Air BMI result Body Mass Index 26.9 Vital signs have been reviewed as appeared to be correct. Blood pressure normal. Heart rate normal. Respiration rate normal. Temperature normal. Oxygen saturation normal. Appearance: Alert. Oriented X3. No acute distress. Head: Normal external exam. Normocephalic. Atraumatic. No Patel signs noted. No raccoon eyes noted Eyes: PERRLA. EOMI. Conjunctiva and sclera normal. Eyelids normal. ENT: TM's Normal. Pharynx normal. Uvula midline. Moist mucous membranes. No trismus noted. No drooling noted. No muffled voice noted. Neck: Normal inspection. Neck supple. FROM. No adenopathy. Thyroid Normal. No meningeal signs. No neck mass noted. CVS: Normal heart rate and rhythm. Heart sound normal. No murmurs noted. Pulses normal throughout. Respiratory: No respiratory distress. Painless inspiration. Breath sounds normal. No wheezes/rales/rhonchi noted. Chest nontender. No accessory muscle usage noted or decreased air movement noted. Abdomen: Soft, right-sided abdominal tenderness, no guarding, no rebound tenderness.. Bowel sounds normal in all 4 quadrants. No distention noted. No organomegaly noted. No visible injury noted. Back: Right CVA tenderness. Full range of motion noted. Skin: Skin warm and dry. Normal skin color. Normal skin turgor. No rashes/lesions/lacerations noted. Extremities: No lower extremity edema. Extremities exhibit normal range of motion. Extremities nontender. Neuro: Oriented X 3. Cranial nerve exam: II-XII are grossly intact No motor deficit. No sensory deficit. Reflexes normal. Course Course Course Narrative: This is a rapid medical exam. Deferred additional HPI, ROS, PE to primary provider. 57yo male with history of HTN, arthritis here with mid abdominal pain/right sided with nausea x 3 days. No diarrhea, constipation, urinary symptoms, fevers, chills. Will obtain labs, UA. VSS Reevaluation(s) Reevaluation #1: Chronic abdominal pain for 3 days, CT/labs are unremarkable except for constipation patient was given milk of magnesia and was instructed to drink plenty of fluid and eat vegetables, use MiraLax, for the next couple days until good bowel movement Additional Reevaluation(s): Right-sided abdominal pain for 3 days, CT/exam/labs are consistent with chronic constipation. Were reassured as discussed with the patient to drink plenty of fluids, eat vegetables for the next couple days and use MiraLax if needed for otherwise to follow-up with PCP/GI if problems continue. Medical Decision Making Differential Diagnosis Differential Diagnoses: The differential diagnosis associated with the presentation includes (Acute appendicitis, UTI, kidney stone, small bowel obstruction, constipation, colitis, diverticulitis, electrolyte abnormalities, severe anemia.) Admission/Observation Consideration of admission/observation: Escalation of care including admission/observation considered Lab Data MDM Lab Attestation statement: I reviewed the patient's lab results. 03/28/23 18:00 03/28/23 18:00 Labs: Lab Results 03/28/23 03/28/23 Range/Units 18:00 18:00 WBC 9.5 (4.8-10.8) X10*3/uL RBC 4.93 (4.60-5.80) X10*6/uL Hgb 14.5 (14.0-18.0) g/dl Hct 44.6 (42.0-52.0) % MCV 90.5 (80.0-98.0) fL MCH 29.4 (27.0-33.0) pg MCHC 32.5 (31.0-36.0) g/dl RDW 12.2 (11.0-16.0) % Plt Count 227 (160-400) X10*3/uL MPV 9.6 (9.4-12.4) fL Immature Gran % (Auto) 0.8 H (0.0-0.4) % Neut % (Auto) 68.7 (45-73) % Lymph % (Auto) 16.7 L (20-40) % [place] % (Auto) 12.1 H (2-11) % Eos % (Auto) 1.2 (0-4) % Baso % (Auto) 0.5 (0-2) % Lymph # (Auto) 1.6 (1.2-4.9) X10*3/uL [place] # (Auto) 1.2 (0.1-1.2) X10*3/uL Eos # (Auto) 0.1 (0.0-0.4) X10*3/uL Baso # (Auto) 0.1 (0.0-0.2) X10*3/uL Abs Immat Gran (auto) 0.08 H (0.00-0.03) X10*3/uL Absolute Neuts (auto) 6.5 (2.0-8.3) x10*3/uL Absolute Nucleated RBC 0.000 (0.0-0.012) X10*3/uL Nucleated RBC % (auto) 0.0 (0.0-0.2) /100WBC Sodium 140 (135-145) mmol/L Potassium 4.9 (3.3-5.1) mmol/L Chloride 105 (96-108) mmol/L Carbon Dioxide 27 (22-29) mmol/L Anion Gap 13 (12-20) BUN 21 H (9-16) mg/dL Creatinine 1.29 (0.5-1.4) mg/dL Estim Creat Clear Calc 64.7 Estimated GFR 58 Random Glucose 105 (60-115) mg/dL Calcium 9.2 (8.4-10.2) mg/dL Total Bilirubin 0.5 (0.0-1.0) mg/dL Direct Bilirubin 0.1 (0.0-0.5) mg/dL AST 22 (5-37) U/L ALT 23 (0-40) U/L Alkaline Phosphatase 75 (39-117) U/L Total Protein 7.3 (6.5-8.0) g/dL Albumin 3.9 (3.5-5.0) g/dL Lipase 20 (8-78) U/L Independent Interpretation I performed an independent interpretation of an: CT Scan (Abdomen and pelvis: Chronic constipation.) Radiology Impression Discussion of test interpretation with radiology: I have reviewed the radiologis t's reading. Discharge Plan Discharge Clinical Impression: Abdominal pain, Constipation Patient Disposition: Home, Self-Care Instructions: Constipation (ED) Prescriptions: No Action polymyxin B sulf-trimethoprim [Polytrim] 10,000 unit- 1 mg/mL drops 1 drp ophthalmic (eye) Q3H 7 Days Qty: 10 0RF Rx Instructions: while awake; do not exceed 6 doses in 24 hours tenofovir disoproxil fumarate [Viread] 300 mg tablet 300 mg PO DAILY omeprazole 20 mg capsule,delayed release(DR/EC) 20 mg PO BID terazosin 5 mg capsule 5 mg PO BEDTIME 30 Days Qty: 30 1RF cetirizine [Zyrtec] 10 mg tablet 10 mg PO DAILY PRN mexiletine 200 mg capsule 200 mg PO BID metoprolol tartrate 50 mg tablet 50 mg PO BID Referrals: Pancho Reno MD [Primary Care Provider] -
[2023-03-28 17:24] VITALS: BP 146/86; PULSE 90; RESP 20; TEMP 36.6; O2SAT 99; BMI 26.9
[2023-03-28 18:08] LABS: MANUAL DIFF FLAG NO
[2023-03-28 18:09] LABS: Basophils Absolute Auto 0.1 X10*3/uL (0.0-0.2); Basophils Percent Auto 0.5 % (0-2); Eosinophils Absolute Auto 0.1 X10*3/uL (0.0-0.4); Eosinophils Percent Auto 1.2 % (0-4); Hematocrit 44.6 % (42.0-52.0); Hemoglobin 14.5 g/dl (14.0-18.0); Imm Gran Abs Auto 0.08 X10*3/uL (0.00-0.03); Imm Gran Pct Auto 0.8 % (0.0-0.4); Lymphocytes Absolute Auto 1.6 X10*3/uL (1.2-4.9); Lymphocytes Percent Auto 16.7 % (20-40); Mean Corpuscular HGB Conc 32.5 g/dl (31.0-36.0); Mean Corpuscular Hemoglobin 29.4 pg (27.0-33.0); Mean Corpuscular Volume 90.5 fL (80.0-98.0); Mean Platelet Volume 9.6 fL (9.4-12.4); Monocytes Absolute Auto 1.2 X10*3/uL (0.1-1.2); Monocytes Percent Auto 12.1 % (2-11); Neutrophils Absolute Auto 6.5 x10*3/uL (2.0-8.3); Neutrophils Percent Auto 68.7 % (45-73); Platelet Count 227 X10*3/uL (160-400); Red Blood Count 4.93 X10*6/uL (4.60-5.80); Red Cell Distribution Width 12.2 % (11.0-16.0); White Blood Count 9.5 X10*3/uL (4.8-10.8)
[2023-03-28 18:28] LABS: Alanine Aminotransferase 23 U/L (0-40); Albumin Level 3.9 g/dL (3.5-5.0); Alkaline Phosphatase 75 U/L (39-117); Anion Gap 13 (12-20); Aspartate Amino Transferase 22 U/L (5-37); Bilirubin Direct 0.1 mg/dL (0.0-0.5); Bilirubin Total 0.5 mg/dL (0.0-1.0); Blood Urea Nitrogen 21 mg/dL (9-16); Calcium 9.2 mg/dL (8.4-10.2); Carbon Dioxide 27 mmol/L (22-29); Chloride 105 mmol/L (96-108); Creatinine Clr Calc Pharmacy 64.7; Estimated Glomerular Filt Rate 58; Glucose Random 105 mg/dL (60-115); Lipase 20 U/L (8-78); Potassium 4.9 mmol/L (3.3-5.1); Sodium 140 mmol/L (135-145); Total Protein 7.3 g/dL (6.5-8.0)
[2023-03-28 21:29] VITALS: BP 124/80; PULSE 85; RESP 16; TEMP 37.1; O2SAT 98
[2023-03-28] MEDS: Milk of Magnesia 30 ML ORAL.SUSP PO (23:05)
--- NOTE | 2023-03-28 23:24 | PC.NURSE ---
Pt ca&ox3. Resting comfortably in bed. No signs of distress. Urine collected. Will continue to monitor.
[2023-03-28 23:28] LABS: Appearance Urine Clear; Color Urine Yellow; Glucose Urine UA Negative (Negative); Leukocyte Esterase Urine Negative (Negative); Nitrite Urine Negative (Negative); PH 5.5 (5.0-9.0); UMIC TRIGGER UACC YES; Urine Blood Moderate (2+) (Negative); Urine Ketones Negative (Negative); Urine Protein Trace mg/dL (Neg-Trace)
[2023-03-28 23:46] LABS: Bacteria Urine None Seen (None Seen); Hyaline Casts Urine 0-2 /LPF (0-2); Squamous Epithelial Cell Urine 0-2 /HPF (0-2); WBC Urine 0-5 /HPF (0-5)
== END 2023-03-29 00:03 | disposition home or self-care (01) ==
PROVIDERS: Nurse Practitioner Family; Emergency Provider Emergency Medicine; PCP Internal Medicine
DX: K59.00 Constipation, unspecified (principal); R10.9 Unspecified abdominal pain; I10 Essential (primary) hypertension; E78.5 Hyperlipidemia, unspecified; Z79.899 Other long term (current) drug therapy
CPT/HCPCS: 36415; 74176; 80048; 80076; 81001; 83690; 85025; 99284

== ENCOUNTER 2023-03-31 13:23 | Outpatient (REF) | payer MEDICAID, SELFPAY | END 2023-03-31 13:24 | disposition home or self-care (01) | LOC: HO.LNP 13:23 | PROVIDERS: Visit Provider Internal Medicine | DX: R10.9 Unspecified abdominal pain (principal) | CPT/HCPCS: 87177; 87209 ==

== ENCOUNTER 2023-09-05 13:04 | Outpatient (REF) | payer MEDICAID, SELFPAY | END 2023-09-05 13:05 | disposition home or self-care (01) | LOC: HO.LNP 13:04 | PROVIDERS: Visit Provider Internal Medicine Gastroenterology | DX: A07.8 Other specified protozoal intestinal diseases (principal) | CPT/HCPCS: 87015; 87177; 87207; 87209; 87272 ==

== ENCOUNTER 2023-10-21 09:43 | Outpatient (REF) | payer MEDICAID, SELFPAY ==
[2023-10-21 09:55] LABS: MANUAL DIFF FLAG NO
[2023-10-21 10:18] LABS: Basophils Absolute Auto 0.1 X10*3/uL (0.0-0.2); Basophils Percent Auto 1.2 % (0-2); Eosinophils Absolute Auto 0.3 X10*3/uL (0.0-0.4); Eosinophils Percent Auto 3.7 % (0-4); Hemoglobin 14.5 g/dl (14.0-18.0); Imm Gran Abs Auto 0.03 X10*3/uL (0.00-0.03); Imm Gran Pct Auto 0.4 % (0.0-0.4); Mean Corpuscular HGB Conc 32.2 g/dl (31.0-36.0); Mean Corpuscular Hemoglobin 29.5 pg (27.0-33.0); Mean Corpuscular Volume 91.5 fL (80.0-98.0); Mean Platelet Volume 9.7 fL (9.4-12.4); Monocytes Absolute Auto 0.6 X10*3/uL (0.1-1.2); Neutrophils Absolute Auto 3.2 x10*3/uL (2.0-8.3); Neutrophils Percent Auto 44.7 % (45-73); Platelet Count 272 X10*3/uL (160-400); Red Blood Count 4.92 X10*6/uL (4.60-5.80); Red Cell Distribution Width 12.9 % (11.0-16.0); White Blood Count 7.2 X10*3/uL (4.8-10.8)
[2023-10-21 10:39] LABS: Alanine Aminotransferase 19 U/L (0-40); Albumin Level 4.1 g/dL (3.5-5.0); Alkaline Phosphatase 72 U/L (39-117); Anion Gap 10 (12-20); Aspartate Amino Transferase 21 U/L (5-37); Bilirubin Total 0.4 mg/dL (0.0-1.0); Blood Urea Nitrogen 22 mg/dL (9-16); Calcium 9.1 mg/dL (8.4-10.2); Carbon Dioxide 28 mmol/L (22-29); Chloride 104 mmol/L (96-108); Cholesterol 168 mg/dL (<200); Estimated Glomerular Filt Rate > 60; Glucose Fasting 103 mg/dL (60-99); HDL Cholesterol 30 mg/dL (>40); LDL Cholesterol Calculated 120 mg/dL (<100); Sodium 138 mmol/L (135-145); Total Protein 7.9 g/dL (6.5-8.0); Triglycerides 94 mg/dL (<150)
[2023-10-21 10:50] LABS: Prostate Specific Antigen Scr 0.58 ng/mL (<0.05-4.0)
== END 2023-10-21 09:44 | disposition home or self-care (01) ==
LOC: HO.LAB 09:43
PROVIDERS: PCP Internal Medicine; Visit Provider Internal Medicine
DX: I12.9 Hypertensive chronic kidney disease with stage 1 through stage 4 chronic kidney disease, or unspecified chronic kidney disease (principal); K21.9 Gastro-esophageal reflux disease without esophagitis; N18.9 Chronic kidney disease, unspecified; M45.9 Ankylosing spondylitis of unspecified sites in spine; R35.1 Nocturia
CPT/HCPCS: 36415; 80053; 80061; 84153; 85025

== ENCOUNTER 2024-02-15 09:09 | Outpatient (REF) | payer MEDICAID, SELFPAY ==
[2024-02-15 10:00] LABS: Prothrombin Time 12.2 SEC (11.1-13.3)
[2024-02-15 10:24] LABS: Alanine Aminotransferase 19 U/L (0-40); Albumin Level 4.2 g/dL (3.5-5.0); Alkaline Phosphatase 72 U/L (39-117); Anion Gap 9 (12-20); Aspartate Amino Transferase 24 U/L (5-37); Bilirubin Total 0.5 mg/dL (0.0-1.0); Blood Urea Nitrogen 22 mg/dL (9-16); Calcium 8.9 mg/dL (8.4-10.2); Carbon Dioxide 26 mmol/L (22-29); Chloride 107 mmol/L (96-108); Estimated Glomerular Filt Rate > 60; Glucose Random 105 mg/dL (60-115); Potassium 3.8 mmol/L (3.3-5.1); Sodium 138 mmol/L (135-145); Total Protein 7.7 g/dL (6.5-8.0)
[2024-02-16 23:08] LABS: Alpha Fetoprotein 1.4 ng/mL (<6.1)
[2024-02-18 05:37] LABS: Hepatitis B Viral DNA Qn - cp <1.00 DETECTED Log IU/mL (NOT DETECTED); Hepatitis B Viral DNA Qn-IU/mL <10 DETECTED IU/mL (NOT DETECTED)
== END 2024-02-15 09:10 | disposition home or self-care (01) ==
LOC: HO.LAB 09:09
PROVIDERS: Visit Provider Internal Medicine Gastroenterology
DX: K74.60 Unspecified cirrhosis of liver (principal)
CPT/HCPCS: 36415; 80053; 82105; 85610; 87517

== ENCOUNTER 2024-04-26 11:52 | Outpatient (REF) | payer MEDICAID, SELFPAY ==
--- NOTE | ~2024-04-26 | XR_ITS ---
EXAMINATION: XR CHEST CLINICAL INFORMATION: Hemoptysis. COMPARISON: February 06, 2021. TECHNIQUE: 2 views of the chest were obtained. FINDINGS: There is no gross pneumothorax. Lung volumes are low. Heart size is normal. Increased left basilar opacities may represent atelectasis versus an infectious/inflammatory process. Trace left pleural effusion. Mild degenerative changes in the thoracic spine. XR/XR chest 2V IMPRESSION: 1. Increased left basilar opacities may represent atelectasis versus an infectious/inflammatory process. Trace left pleural effusion.
== END 2024-04-26 11:53 | disposition home or self-care (01) ==
LOC: HO.XRAY 11:52
PROVIDERS: PCP Internal Medicine; Visit Provider Internal Medicine
DX: R04.2 Hemoptysis (principal)
CPT/HCPCS: 71046

== ENCOUNTER 2024-07-25 09:54 | Outpatient (AMB) | payer MEDICAID, SELFPAY ==
[2024-07-25 10:03] VITALS: BP 120/70; PULSE 68; BMI 29.3
--- NOTE | 2024-07-25 10:03 | MHC.OFFVIS ---
Vital Signs 07/25/24 10:03 Height 5 ft 9 in Weight 198 lb 6.656 oz BMI 29.3 BP 120/70 Blood Pressure Location Lt brachial Position Sitting Pulse 68 Pulse Source Monitor Intake Visit Reasons: r/s 04/29/23 6 mos followup Intake Note: 6 mth f/up Supervisor/Port Director Required: No Accompanied by: Self / Same As Patient Allergies No Known Allergies Allergy (Verified 08/11/22 14:52) Medication List - Last Reconciled 07/25/24 by Davian Reyes MD cetirizine (Zyrtec) 10 mg PO DAILY PRN metoprolol tartrate 50 mg PO BID mexiletine 200 mg PO BID omeprazole 20 mg PO BID polymyxin B sulf-trimethoprim 10,000 unit- 1 mg/mL (Polytrim) 1 drp ophthalmic (eye) Q3H 7 days tenofovir disoproxil fumarate (Viread) 300 mg PO DAILY terazosin 5 mg PO BEDTIME 30 days HPI Comments Details: 58-year-old gentleman here for management of palpitations. He has supraventricular tachycardia and was referred to electrophysiology and it appears he underwent ablation. He also has stress testing done before ablation and it appears that his testing was normal. After ablation he started feeling palpitations and skipped heartbeats. Further workup has shown premature ventricular complexes. It appears that these were the cause for his supraventricular tachycardia. He was referred to [place] by Dr. Baxter and it appears there were started him on mexiletine. Since then he has been doing well. He has no PVCs. He has noticed that his blood pressure is low. This has happened previously to. He is denying any symptoms but his blood pressure in the office is 94/70. 07/25/2024: He returns for follow-up. He is getting off and on palpitations. He is taking mexiletine 200 mg twice a day along with metoprolol tartrate 50 mg twice a day. No chest discomfort or shortness of breath. Occasional headaches. His EKG in the office is abnormal with inferior T-wave inversions and lateral nonspecific T-wave changes. [facility] Medical History Arthritis High cholesterol HTN (hypertension) Surgical History History of hernia surgery Family History Mother CAD (coronary artery disease) Father No problems noted. Social History Alcohol intake: never Patient Tobacco Use Status: Never used Tobacco Review of Systems Const Denies chills, Denies fatigue, Denies fever(s), Denies frequent falls, Denies weakness, Denies weight gain and Denies weight loss ENT Denies dizziness Card Denies chest pain, Denies leg edema, Denies lightheadedness, Denies palpitations, Denies dyspnea and Denies dyspnea on exertion Resp Denies cough, Denies dyspnea and Denies dyspnea on exertion GI Denies hematochezia Musc Denies abnormal gait, Denies muscle weakness, Denies numbness, Denies radiating pain into limb and Denies tingling Neuro Denies abnormal gait, Denies dizziness, Denies frequent falls, Denies numbness, Denies tingling and Denies weakness Endo Denies fatigue and Denies palpitations Physical Exam Vital Signs: Last Vital Signs Pulse 68 07/25/24 10:03 BP 120/70 07/25/24 10:03 BMI result Body Mass Index 29.3 GENERAL APPEARANCE: in no acute distress, pleasant. NECK: no carotid bruit, no jugular venous distention. SKIN: no suspicious lesions, warm and dry. HEART: no murmurs, regular rate and rhythm. LUNGS: clear to auscultation bilaterally. ABDOMEN: soft, nontender. EXTREMITIES: no edema. PERIPHERAL PULSES: equal. NEUROLOGIC: No gross deficits, AAO X 3 Office Procedures EKG Details: Sinus rhythm 68 beats per minute, normal axis, inferior and lateral T-wave inversions, QTC 408 milliseconds. 76152-[id number], Complete Assessment & Plan Assessment & Plan (1) Abnormal ECG: Code(s): R94.31 - Abnormal electrocardiogram [ECG] [EKG] Category: Medical (2) HTN (hypertension): Code(s): I10 - Essential (primary) hypertension Category: Medical (3) Premature ventricular complex: Code(s): I49.3 - Ventricular premature depolarization Category: Medical Plan [age] year gentleman who is here for follow-up. He has background history of supraventricular tachycardia for which she underwent ablation. Appears that he had premature ventricular complexes which were triggering SVT and he was symptomatic from the PVCs after ablation. For this issue he saw electrophysiology in [place] and was started on mexiletine and since then he has been stable. He is still getting occasional palpitations but overall stable and EKG in the office is not showing any further premature ventricular complexes. His EKG is abnormal though and is showing inferior T-wave inversions as well as lateral nonspecific ST changes. I discussed with him that these changes are new and can represent left ventricular hypertrophy versus ischemia. He said his blood pressure was uncontrolled and he was using garlic regularly which brought it down. Currently blood pressure is controlled. I will check echocardiogram to assess for left ventricular hypertrophy and to assess for any wall motion abnormalities. We will arrange a stress echocardiogram for him. Frequent premature ventricular complexes can be a sign of ischemia and he had history of that and is currently on mexiletine. Inferior T-wave inversions can represent ischemia. Thank you for allowing me to participate in the care of your patient. Please feel free to contact me if you have any questions. Orders: Orders CA echo stress exercise w con Today R94.31 - Abnormal electrocardiogram [ECG] [EKG] CA echo transthorac w con Today R94.31 - Abnormal electrocardiogram [ECG] [EKG] Coding Level of Care Code Est Pt Level 4 (41345) Diagnoses Abnormal ECG R94.31 HTN (hypertension) I10 Premature ventricular complex I49.3 CPT Codes EKG - CPT: 61365-[id number], Complete ([id number])
== END 2024-07-25 10:29 | disposition home or self-care (01) ==
PROVIDERS: PCP Internal Medicine; Referring Provider Internal Medicine; Visit Provider Internal Medicine Cardiovascular Disease
DX: R94.31 Abnormal electrocardiogram [ECG] [EKG] (principal); I10 Essential (primary) hypertension; I49.3 Ventricular premature depolarization
CPT/HCPCS: 93010; 99214

== ENCOUNTER → 2024-07-25 09:54 | Outpatient (BNVA) | payer MEDICAID, SELFPAY | PROVIDERS: PCP Internal Medicine; Visit Provider Internal Medicine Cardiovascular Disease | DX: R94.31 Abnormal electrocardiogram [ECG] [EKG] (principal); I49.3 Ventricular premature depolarization; I10 Essential (primary) hypertension | CPT/HCPCS: 93005; 99212 ==

== ENCOUNTER → 2024-08-16 10:58 | Outpatient (REF) | payer MEDICAID, SELFPAY ==
--- NOTE | 2024-08-16 11:03 | CA_ITS ---
Transthoracic Echocardiogram Patient (Last, First, Middle): Troy Lion, Gender: Male Date of : 1965 Age: 58 Procedure Date: 08/16/2024 Procedure Type: Transthoracic Echocardiogram Location: OP Height: 175.26 cm Weight: 86.18 kg BSA: 2.02 m2 Heart Rate: bpm BP: 110 / 76 mmHg Remote Sensing Technologist: CHANTAL Referring MD: Sampson Reyes Traveling Accountant: Deon Katz MD Symptoms: R94.31 - Abnormal electrocardiogram [ECG] [EKG] Study Quality: Fair ECG Rhythm: Sinus Conclusions: - 1. Normal LV ejection fraction 55-60% 2. Normal cardiac valvular Dopplers 3. Normal RV systolic pressure 4. No gross pericardial effusion Findings Left Ventricle Normal left ventricular size, thickness, and systolic function. The visually estimated ejection fraction is between 55-60%. Spectral Doppler is indicative of a normal filling pattern. Right Ventricle Normal right ventricular cavity size and systolic function. Atria Both atria are normal in size. There is no evidence of interatrial shunt. Aortic Valve Normal aortic valve structure and function. There is no aortic valve stenosis. There is no aortic valve regurgitation. Mitral Valve Normal mitral valve structure and function. There is trace mitral valve regurgitation. There is no mitral valve stenosis. Pulmonic Valve The pulmonic valve is likely normal. Tricuspid Valve Likely normal tricuspid valve structure and function. There is trace tricuspid valve regurgitation. The right ventricular systolic pressure is normal. The right ventricular systolic pressure is 13 mmHg. Normal right atrial pressure. There is no evidence of pulmonary hypertension. Great Vessels All visible segments of the aorta are normal in size. The pulmonary artery was not well visualized. Venous The inferior vena cava is normal in size and collapses greater than 50% with inspiration. Pericardium/Pleural There is no evidence of pericardial effusion. Prior Study Comparison No significant change compared to prior study dated: 02/13/2021. Measurements 2D Linear Measurements IVSd: 0.89 0.6-0.9/0.6-1.0 cm LVIDd: 5.62 3.9-5.3/4.2-5.9 cm LVIDd Index: 2.78 2.4-3.2/2.2-3.1 cm/m2 LVIDs: 3.52 2.0-3.6 cm LVPWd: 0.77 0.7-1.1 cm LA Diam: 3.40 2.7-3.8/3.0-4.0 cm LAIDs Index: 1.68 1.5-2.3 cm/m2 LV Mass: 216.66 67-162/88-224 g LV Mass Index: 107.26 43-95/49-115 g/m2 LVOT Diam: 2.10 3.0+(-)1.3 cm 2D Systolic Function EF 4C: 60.00 >55% EF 2C: 56.40 >55% EF BiP: 57.90 >55% Mitral Valve MV Pk E: 0.62 MV PK A: 0.68 MV Decel Time: 210.00 E/A: 0.90 E'Lateral: 8.27 E'Medial: 5.77 E/E' Med: 10.70 E/E' Lat: 7.50 PHT: 62.00 MVA PHT: 3.55 Decel Whiteside: 2.93 Aortic Valve AoV Pk Jovi: 1.23 AoV Mn Jovi: 0.95 AoV VTI: 0.27 AoV Pk Grad: 6.00 Aov Mn Grad: 4.00 LORENE Cont.VTI: 2.08 LVOT LVOT Pk Jovi: 0.75 LVOT Mn Jovi: 0.54 LVOT VTI: 0.16 LVOT Pk Grad: 2.00 LVOT Mn Grad: 1.00 LVOT Diam: 2.10 LVOT Area: 3.46 Diastolic Function MV Pk E: 0.62 MV Pk A: 0.68 E/A: 0.90 E'Medial: 5.77 E/E' Med: 10.70 E' Laterial: 8.27 E/E' Lat: 7.50 Right Ventricle TAPSE (mm): 21.30 TVS' Jovi: 11.30 Tricuspid Valve TR Pk Jovi: 1.55 TR Pk Grad: 10.00 RA Press: 3.00 RVSP: 13.00 Great Vessels Aorta Sinus of Valsalva: 3.23 2.0-3.[address] [place]: 2.24 1.7-3.4 cm Ao Asc: 3.10 2.1-3.4 cm Updated in Other Vendor System with Status of Final Deon Katz MD electronically signed on 08/16/2024 4:20:40 PM with status of Final
== END ==
LOC: HO.CARD 10:58
PROVIDERS: PCP Internal Medicine; Visit Provider Internal Medicine Cardiovascular Disease
DX: R94.31 Abnormal electrocardiogram [ECG] [EKG] (principal)
CPT/HCPCS: 93306

== ENCOUNTER → 2024-08-16 11:03 | Outpatient (BNV) | payer MEDICAID, SELFPAY | PROVIDERS: PCP Internal Medicine; Visit Provider Internal Medicine Cardiovascular Disease | DX: R94.31 Abnormal electrocardiogram [ECG] [EKG] (principal) | CPT/HCPCS: 93306 ==

== ENCOUNTER 2024-08-27 09:26 | Outpatient (REF) | payer MEDICAID, SELFPAY ==
[2024-08-27 10:42] LABS: MANUAL DIFF FLAG NO
[2024-08-27 10:50] LABS: Basophils Absolute Auto 0.1 X10*3/uL (0.0-0.2); Basophils Percent Auto 0.9 % (0-2); Eosinophils Absolute Auto 0.2 X10*3/uL (0.0-0.4); Eosinophils Percent Auto 3.2 % (0-4); Hemoglobin 14.8 g/dl (14.0-18.0); Imm Gran Abs Auto 0.02 X10*3/uL (0.00-0.03); Imm Gran Pct Auto 0.3 % (0.0-0.4); Lymphocytes Absolute Auto 2.2 X10*3/uL (1.2-4.9); Lymphocytes Percent Auto 33.4 % (20-40); Mean Corpuscular HGB Conc 33.6 g/dl (31.0-36.0); Mean Corpuscular Hemoglobin 30.3 pg (27.0-33.0); Mean Corpuscular Volume 90.2 fL (80.0-98.0); Mean Platelet Volume 10.4 fL (9.4-12.4); Monocytes Absolute Auto 0.6 X10*3/uL (0.1-1.2); Monocytes Percent Auto 8.8 % (2-11); Neutrophils Absolute Auto 3.5 x10*3/uL (2.0-8.3); Neutrophils Percent Auto 53.4 % (45-73); Platelet Count 206 X10*3/uL (160-400); Red Blood Count 4.88 X10*6/uL (4.60-5.80); Red Cell Distribution Width 12.6 % (11.0-16.0); White Blood Count 6.6 X10*3/uL (4.8-10.8)
[2024-08-27 12:31] LABS: Alanine Aminotransferase 21 U/L (0-40); Albumin Level 4.1 g/dL (3.5-5.0); Alkaline Phosphatase 82 U/L (39-117); Anion Gap 9 (12-20); Aspartate Amino Transferase 30 U/L (5-37); Bilirubin Total 0.4 mg/dL (0.0-1.0); Blood Urea Nitrogen 19 mg/dL (9-16); Calcium 9.2 mg/dL (8.4-10.2); Carbon Dioxide 23 mmol/L (22-29); Chloride 110 mmol/L (96-108); Estimated Glomerular Filt Rate > 60; Glucose Random 122 mg/dL (60-115); Potassium 3.6 mmol/L (3.3-5.1); Sodium 138 mmol/L (135-145); Total Protein 7.6 g/dL (6.5-8.0)
== END 2024-08-27 09:27 | disposition home or self-care (01) ==
LOC: HO.10HDL 09:26
PROVIDERS: Visit Provider Internal Medicine
DX: I10 Essential (primary) hypertension (principal); K21.9 Gastro-esophageal reflux disease without esophagitis; I47.10 Supraventricular tachycardia, unspecified
CPT/HCPCS: 36415; 80053; 85025

== ENCOUNTER 2024-10-24 16:20 | Emergency (ER) | payer MEDICAID, SELFPAY ==
--- OUTSIDE RECORDS SUMMARY | 2024-10-24 16:22 | XMS_ITS ---
Author Organization [facility] Address [address] [place] [id number] Care Team Providers Care Health Assessment And Treatment Teacher Name Role Phone Pancho Reno MD Primary Care Provider UnavailFrank Valentin Jr Unavailable REASON FOR VISIT labs Encounters Encounter Location Date Provider Diagnosis [facility] [address] [place] [id number] 09/15/2023 Frank Rivera Jr PLAN OF TREATMENT No Information
--- OUTSIDE RECORDS SUMMARY | 2024-10-24 16:22 | XMS_ITS | Patient Health Record ---
Author Organization [facility] Address [address] [place] [address] Care Team Providers Care Furnace Attendant Name Role Phone Pancho Reno MD Primary Care Provider Frank Cornell Jr Unavailable ALLERGIES No Known Allergies REASON FOR REFERRAL No Information MEDICATIONS Medication SIG (Take, Route, Frequency, Duration) Notes Start Date End Date Status Mexiletine HCl 200 MG TAKE ONE CAPSULE B Y MOUTH TWICE A DAY WITH MEALS Oral for 90 Active Omeprazole 20 MG TAKE ONE CAPSULE BY MOUTH TWICE A DAY Oral for 90 Active Tenofovir Disoproxil Fumarate 300 MG TAKE ONE TABLET BY MOUTH EVERY DAY Oral for 90 Active Metoprolol Tartrate 50 MG TAKE ONE TABLE T BY MOUTH TWICE A DAY WITH FOOD Oral for 90 Active Losartan Potassium 25 MG TAKE 1 TABLET B Y MOUTH EVERY DAY Oral for 90 Active IMMUNIZATIONS Vaccine Route Administration Date Status Comme nts Influenza Unknown 08/22/2023 Refused SOCIAL HISTORY Tobacco Use: Social History Observation Description Date Details (start date - stop date) Never Smoker NA - NA Sex Assigned At : Social History Observation Description Sex Assigned At Unknown Tobacco Use/Smoking Question Answer Notes Patient is a nonsmoker Alcohol Screen Question Answer Notes Did you have a drink containing alcohol in the p ast year? 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 PVCs Hepatitis B BPH Gastroesophageal reflux disease Surgical History Surgery Date(Month/Year) Umbilical hernia repair 2018
--- OUTSIDE RECORDS SUMMARY | 2024-10-24 16:22 | XMS_ITS ---
Author Organization 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 [id number] VITAL SIGNS BMI 26.87 kg/m2 08/22/2023 Blood pressure systolic 000 mm Hg 08/22/20 23 Blood pressure diastolic 00 mm Hg 023 Height 5 ft 9 in in 08/22/2023 Temperature 98.7 degrees Fahrenheit 08/22/20 23 Weight 182 lbs 08/22/2023 Encounters Encounter Location Date Provider Diagnosis [facility] [address] [place] [address] 08/22/2023 Frank Rivera Jr Blastocystis hominis infection A07.8 ASSESSMENTS Encounter Date Diagnosis Assessment Notes Treatment Notes Treatment Clinical Notes 08/22/2023 Blastocystis hominis infection (ICD-10 - A07.8) PLAN OF TREATMENT Pending Test Test Name Order Date OVA & PARASITES (O&P) 08/22/2023 Cyclospora & Isospora Stool 08/22/2023 Cryptosporidium Ag DFA 08/22/2023 Next Appt Details Follow Up: prn, Reason: Progress Notes * Examination Category Sub-Category Detail Notes General Examination GENERAL APPEARANCE: in no ac pino distress HEAD: normocephalic EYES: sclera non-icteric NECK/THYROID: no lymphadenopathy HEART: S1, S2 normal, no mu rmurs CHEST: normal shape and exp ansion LUNGS: clear to auscultatio n bilaterally ABDOMEN: soft, nontender, non distended, bowel sounds present, no organomegaly SKIN: anicteric EXTREMITIES: no clubbing, cyanosi s, or edema PSYCH: cognitive function i ntact ORAL CAVITY: mucosa moist
--- OUTSIDE RECORDS SUMMARY | 2024-10-24 16:22 | XMS_ITS ---
Author Organization [facility] Address [address] [place] [address] Care Team Providers Care Phosphoric Acid Supervisor Name Role Phone Pancho Reno MD Primary Care Provider UnavailFrank Valentin Jr REASON FOR VISIT lab stated stools specimens done incorrectly Encounters Encounter Location Date Provider Diagnosis [facility] [address] [place] [phone] 09/05/2023 Frank Rivera Jr PLAN OF TREATMENT No Information
[2024-10-24 16:25] VITALS: BP 123/75; PULSE 67; RESP 16; TEMP 36.8; O2SAT 98; BMI 28.1
--- NOTE | 2024-10-24 17:30 | ED_ITS ---
HPI - General Adult General Chief complaint: Eye Problems Stated complaint: right eye pain Time Seen by Provider: 10/24/24 17:29 Source: patient, RN notes reviewed and old records reviewed Mode of arrival: ambulatory Limitations: no limitations History of Present Illness ED Provider: Samara MENDIETA narrative: 58-year-old male presents for evaluation of right eye redness and itching. His symptoms started 2 days ago. He reports when he woke up in the morning he had crusting discharge to the outside corner of his right eye. He denies getting anything in his eye. He does not work with metal. He reports this happened this past spring and he was treated with antibiotic drops and everything went away No other complaints or concerns at this time Related Data Home Medications ?Medication ?Instructions ?Recorded ?Confirmed tenofovir disoproxil fumarate 300 300 mg PO DAILY 02/12/21 07/25/24 mg tablet (Viread) omeprazole 20 mg capsule,delayed 20 mg PO BID 07/01/21 07/25/24 release cetirizine 10 mg tablet (Zyrtec) 10 mg PO DAILY PRN 09/28/21 07/25/24 metoprolol tartrate 50 mg tablet 50 mg PO BID 12/24/21 07/25/24 mexiletine 200 mg capsule 200 mg PO BID 08/11/22 07/25/24 Previous Rx's ?Medication ?Instructions ?Recorded terazosin 5 mg capsule 5 mg PO BEDTIME 30 days #30 caps 07/01/21 polymyxin B sulfate 10,000 1 drp ophthalmic (eye) Q3H 7 days 07/06/21 unit-trimethoprim 1 mg/mL eye #10 mL drops (Polytrim) polymyxin B sulfate 10,000 1 drp ophthalmic (eye) Q3H 7 days 10/24/24 unit-trimethoprim 1 mg/mL eye drops #10 mL Allergies Allergy/AdvReac Type Severity Reaction Status Date / Time No Known Allergies Allergy Verified 10/24/24 16:27 Review of Systems Constitutional: Constitutional: Denies body ache(s), Denies chills, Denies fever(s) and Denies headache(s) Eyes: Eyes: Denies blurry vision, Denies change in vision, Denies diplopia, Reports eye discharge, Denies floaters, Reports irritation, Reports itchy eyes, Denies requires corrective lenses, Denies seeing flashes and Denies photophobia ENT: Denies headache(s) Neurologic: Denies headache(s) Allergic/Immunologic: Allergic/Immunologic: Reports itchy eyes PMFSH Past Medical History Medical History Arthritis High cholesterol HTN (hypertension) Surgical History History of hernia surgery Family History Family History Mother CAD (coronary artery disease) Father No problems noted. Social History Social History Alcohol intake: never Patient Tobacco Use Status: Never used Tobacco Advance Directives: No Advance Directives Information Provided: No Do you have a plan to hurt others: No Plan Physical Exam ED Vital Signs: Vital Signs - 24 hr 10/24/24 16:25 10/24/24 17:35 Temperature 98.3 F 98.3 F Pulse Rate 67 67 Respiratory Rate 16 16 Blood Pressure 123/75 123/75 Pulse Oximetry 98 98 Oxygen Delivery Method Room Air Room Air BMI result Body Mass Index 28.1 Const General: healthy appearing, comfortable, no acute distress, alert and awake Nutritional Appearance: well nourished Orientation/consciousness: patient oriented x3 HENMT Head: Yes normocephalic and Yes atraumatic Eyes Alignment and Position: alignment normal Periorbital: periorbital findings normal Eyelids: Yes eyelids normal (No stye) Conjunctivae: conjunctival abnormal right conjunctival injection localized (Lateral corner) Sclerae: sclerae normal Corneas: corneas normal Pupils: Equal, round and reactive pupils present EOM: EOMs intact bilaterally Direct Ophthalmoscopy: No photophobia Neck Neck: Yes full ROM Resp Effort & Inspection: normal respiratory effort, able to speak in complete sentences and not labored Skin General skin exam: elasticity normal Neuro General: patient oriented x3 Cranial nerves: Yes Equal, round and reactive pupils present and Yes Bilaterally intact EOM present Cognition (Neuro): normal cognition Extrem Other: Moving all extremities well without any obvious deformities Medical Decision Making Medical Decision Making MDM Narrative: 58-year-old male presents for evaluation of right eye itching and discharge. His symptoms are consistent with bacterial conjunctivitis. He had similar symptoms in the spring and was discharged with polymyxin B eye drops with complete resolution of his symptoms. We will use the same eye drops. I have a low suspicion for corneal abrasion this started spontaneously. I have a low suspicion for glaucoma as the symptoms are localized to the right lateral high. There is no obvious foreign body on exam Differential Diagnosis Differential Diagnoses: The differential diagnosis associated with the presentation includes Corneal abrasion Conjunctivitis Foreign body in eye Glaucoma less likely Discharge Plan Discharge Clinical Impression: Acute conjunctivitis, right eye Patient Disposition: Home, Self-Care Instructions: How to Use Eye Drops (ED), Conjunctivitis (ED) Additional Instructions: Use antibiotic eyedrops as prescribed every 3 hours for 1 week You may use [id number] allergy medication as well Follow-up with your primary doctor, return for new or worsening symptoms Prescriptions: New polymyxin B sulf-trimethoprim 10,000 unit- 1 mg/mL drops 1 drp ophthalmic (eye) Q3H 7 Days Qty: 10 0RF Rx Instructions: while awake; do not exceed 6 doses in 24 hours No Action polymyxin B sulf-trimethoprim [Polytrim] 10,000 unit- 1 mg/mL drops 1 drp ophthalmic (eye) Q3H 7 Days Qty: 10 0RF Rx Instructions: while awake; do not exceed 6 doses in 24 hours tenofovir disoproxil fumarate [Viread] 300 mg tablet 300 mg PO DAILY omeprazole 20 mg capsule,delayed release(DR/EC) 20 mg PO BID terazosin 5 mg capsule 5 mg PO BEDTIME 30 Days Qty: 30 1RF cetirizine [Zyrtec] 10 mg tablet 10 mg PO DAILY PRN mexiletine 200 mg capsule 200 mg PO BID metoprolol tartrate 50 mg tablet 50 mg PO BID Interventions: ED Discharge Assessment Last Done: 10/24/24 17:35 Discharge Date/Time: 10/24/24 17:36 Print Language: Ethiopian
[2024-10-24 17:35] VITALS: BP 123/75; PULSE 67; RESP 16; TEMP 36.8; O2SAT 98
== END 2024-10-24 17:36 | disposition home or self-care (01) ==
PROVIDERS: Emergency Provider Emergency Medicine; PCP Internal Medicine
DX: H10.31 Unspecified acute conjunctivitis, right eye (principal)
CPT/HCPCS: 99282; 99283

== ENCOUNTER 2024-12-17 13:55 | Outpatient (AMB) | payer MEDICAID, SELFPAY ==
--- NOTE | 2024-12-17 14:29 | MHC.OFFVIS ---
Vital Signs 12/17/24 14:30 Height 5 ft 9 in Weight 200 lb 2.876 oz BMI 29.6 BP 112/74 Blood Pressure Location Lt brachial Position Sitting Pulse 74 Intake Visit Reasons: r/s 3mth/ echo/stress echo Global Chief Creative Officer Required: No Accompanied by: Self / Same As Patient Allergies No Known Allergies Allergy (Verified 10/24/24 16:27) Medication List - Last Reconciled 12/17/24 by Davian Reyes MD cetirizine (Zyrtec) 10 mg PO DAILY PRN metoprolol succinate ER (Toprol XL) 50 mg PO DAILY mexiletine 200 mg PO BID omeprazole 20 mg PO BID tenofovir disoproxil fumarate (Viread) 300 mg PO DAILY terazosin 5 mg PO BEDTIME 30 days HPI Comments Details: 59-year-old gentleman here for f/u. He has supraventricular tachycardia and was referred to electrophysiology and it appears he underwent ablation. He also has stress testing done before ablation and it appears that his testing was normal. After ablation he started feeling palpitations and skipped heartbeats. Further workup has shown premature ventricular complexes. It appears that these were the cause for his supraventricular tachycardia. He was referred to [place] by Dr. Baxter and it appears there were started him on mexiletine. Since then he has been doing well. He has no PVCs. He has noticed that his blood pressure is low. This has happened previously to. He is denying any symptoms but his blood pressure in the office is 94/70. 07/25/2024: He returns for follow-up. He is getting off and on palpitations. He is taking mexiletine 200 mg twice a day along with metoprolol tartrate 50 mg twice a day. No chest discomfort or shortness of breath. Occasional headaches. His EKG in the office is abnormal with inferior T-wave inversions and lateral nonspecific T-wave changes. 12/17/24: He was referred for echo and stress. He did echo which was essentially normal. He did not do the stress test. Occasional palpitations. Tolerating current meds ok. [facility] Medical History Arthritis High cholesterol HTN (hypertension) Surgical History History of hernia surgery Family History Mother CAD (coronary artery disease) Father No problems noted. Social History Alcohol intake: never Patient Tobacco Use Status: Never used Tobacco Review of Systems Const Denies chills, Denies fatigue, Denies fever(s), Denies weight gain and Denies weight loss ENT Denies dizziness Card Denies chest pain, Denies leg edema, Denies lightheadedness, Denies palpitations, Denies dyspnea on exertion, Denies orthopnea and Denies other Resp Denies cough and Denies dyspnea on exertion GI Denies hematochezia and Denies change in stool character Musc Denies abnormal gait, Denies muscle weakness, Denies numbness, Denies radiating pain into limb and Denies tingling Neuro Denies abnormal gait, Denies dizziness, Denies numbness and Denies tingling Endo Denies fatigue and Denies palpitations Physical Exam Vital Signs: Last Vital Signs Pulse 74 12/17/24 14:30 BP 112/74 12/17/24 14:30 BMI result Body Mass Index 29.6 GENERAL APPEARANCE: in no acute distress, pleasant. NECK: no carotid bruit, no jugular venous distention. SKIN: no suspicious lesions, warm and dry. HEART: no murmurs, regular rate and rhythm. LUNGS: clear to auscultation bilaterally. ABDOMEN: soft, nontender. EXTREMITIES: no edema. PERIPHERAL PULSES: equal. NEUROLOGIC: No gross deficits, AAO X 3 Assessment & Plan Assessment & Plan (1) Abnormal ECG: Code(s): R94.31 - Abnormal electrocardiogram [ECG] [EKG] Category: Medical (2) HTN (hypertension): Code(s): I10 - Essential (primary) hypertension Category: Medical (3) Premature ventricular complex: Code(s): I49.3 - Ventricular premature depolarization Category: Medical Plan 59-year-old gentleman who is here for follow-up. He has background history of supraventricular tachycardia for which she underwent ablation. It appears that he had premature ventricular complexes which were triggering SVT and he was symptomatic from the PVCs after ablation. For this issue he saw electrophysiology in [place] and was started on mexiletine and since then he has been stable. He is still getting occasional palpitations but overall stable and EKG in the office is not showing any further premature ventricular complexes. His EKG is abnormal though and is showing inferior T-wave inversions as well as lateral nonspecific ST changes. He was referred for echo and stress test. He has not done stress test yet. We will reschedule that. Echo was normal. He will f/u in 3 months. Thank you for allowing me to participate in the care of your patient. Please feel free to contact me if you have any questions. Coding Level of Care Code Est Pt Level 3 (43303) Diagnoses Abnormal ECG R94.31 HTN (hypertension) I10 Premature ventricular complex I49.3
[2024-12-17 14:30] VITALS: BP 112/74; PULSE 74; BMI 29.6
== END 2024-12-17 14:52 | disposition home or self-care (01) ==
PROVIDERS: PCP Internal Medicine; Visit Provider Internal Medicine Cardiovascular Disease
DX: R94.31 Abnormal electrocardiogram [ECG] [EKG] (principal); I10 Essential (primary) hypertension; I49.3 Ventricular premature depolarization
CPT/HCPCS: 99213

== ENCOUNTER → 2024-12-17 13:55 | Outpatient (BNVA) | payer MEDICAID, SELFPAY | PROVIDERS: PCP Internal Medicine; Visit Provider Internal Medicine Cardiovascular Disease | DX: I10 Essential (primary) hypertension (principal); I49.3 Ventricular premature depolarization; R94.31 Abnormal electrocardiogram [ECG] [EKG] | CPT/HCPCS: 99212 ==

== ENCOUNTER → 2025-01-15 10:54 | Outpatient (REF) | payer MEDICAID, SELFPAY ==
--- NOTE | 2025-01-15 10:57 | CA_ITS ---
Acquisition Time: 2025-01-15 11:23:57 Total Exercise Time: 00:08:50 Test Indications: ABN EKG, PVCS, SVT Medications: SEE H&P Protocol: KATHERINE Max HR: 153 BPM 93% of Pred: 163 BPM Max BP: 150/80 mmHG Max Work Load: 10.1 METS Exercise Stress Test with exercise 8 mins 50 secs of Katherine Protocol, achieving 92% MPHR, with reports of SOB, no chest discomfort, with isolated PACs and PVCs and occasional ventricular bigeminy in recovery, with normotensive response exercise. Without EKG changes meeting criteria for ischemia.In recovery, breathing returned to baseline. Echo images obtained by tech at rest and post peak exercise. Definity contrast utilized. Test reviewed with Dr. Lira. Referred By: Davian Reyes Electronically Signed By: Nino Coughlin
--- OUTSIDE RECORDS SUMMARY | 2025-01-15 13:22 | XMS_ITS | Patient Health Record ---
Author Organization [facility] Address [address] [place] [address] Care Team Providers Care Food Preparation Kitchen Aide Name Role Phone Pancho Reno MD Primary Care Provider Frank Cornell Jr Unavailable Allergies No Known Allergies Reason For Referral No Information Medications Medication SIG (Take, Route, Frequency, Duration) Notes [...] MOUTH EVERY DAY Oral for 90 Active Immunizations Vaccine Route Administration Date Status Comme nts Influenza Unknown 08/22/2023 Refused Social History Tobacco Use: Social History Observation Description Date Details (start date - stop date) Never Smoker NA - NA Tobacco Use/Smoking Question Answer Notes Patient is a nonsmoker Alcohol Screen Question Answer Notes Did you have a drink containing alcohol in the p ast year? 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 PVCs Hepatitis B BPH Gastroesophageal reflux disease Surgical History Surgery Date(Month/Year) Umbilical hernia repair 2018
--- OUTSIDE RECORDS SUMMARY | 2025-01-15 13:23 | XMS_ITS ---
Author Organization [facility] Address [address] [place] [phone] Care Team Providers Care Cap Parts Cutter Name Role Phone Pancho Reno MD Primary Care Provider Frank Cornell Jr REASON FOR VISIT labs Encounters Encounter Location Date Provider Diagnosis [facility] [address] [place] [phone] 09/15/2023 Frank Rivera Jr Plan Of Treatment No Information Progress Notes * KHURRAM GRANADOS ADOB:1964 (57 yo M)Acc No.[id number]:09/15/2023 Patient:?KHURRAM GRANADOS :1965???Age:57 Y???Sex:Male Address:[address] [place] [address] , [place], [address] * true * Date:? Generated for Kaitlini yajaira/Wagner/eTransmitting on:?01/15/2025 01:22 PM EDT
--- OUTSIDE RECORDS SUMMARY | 2025-01-15 13:23 | XMS_ITS ---
Author Organization [facility] Address [address] [place] [address] Care Team Providers Care Florist Supplies Salesperson Name Role Phone Pancho Reno MD Primary Care Provider Cassandra Rivera Jr, Frank Silveira REASON FOR VISIT lab stated stools specimens done incorrectly Encounters Encounter Location Date Provider Diagnosis [facility] [address] [place] [address] 09/05/2023 Frank Rivera Jr Plan Of Treatment No Information Progress Notes * KHURRAM GRANADOS ADOB:1964 (57 yo M)Acc No.[id number]:09/05/2023 Patient:?KHURRAM GRANADOS :1965???Age:57 Y???Sex:Male Address:[address] [facility] [facility] , [place], [address] * true * Date:? Generated for Gorge gates/Wganer/eTransmitting on:?01/15/2025 01:23 PM EDT
--- OUTSIDE RECORDS SUMMARY | 2025-01-15 13:23 | XMS_ITS | Clinical Summary ---
Author Organization [facility] Address [address] [place] [address] Phone Care Team Providers Care Seam Presser Name Role Phone aPncho Reno MD Primary Care Provider [phone] Medications tenofovir disoproxil fumarate (VIREAD) 300 mg tabletIndication s:Hepatitis B TAKE ONE TABLET BY MOUTH EVERY DAY 90 tablet 1 12/13/2024 Active Encounters Date Type Department Care Team Description 11/19/2024 Telephone Gastroenterology - [address] [address] Yanely Garza MA 11/13/2024 10:11 AM EST - 11/13/2024 11:59 PM EST Hospital Encounter [facility] [address] [place] [address] Hepatitis B Discharge Disposition: Home or Self Care 10/18/2024 Telephone Gastroenterology - [address] [address] Edson Mcknight MD 10/17/2024 Telephone Gastroenterology - [address] [address] Bisi Chisholm MA from Last 3 Months Social History Tobacco Use Types Packs/Day Years Used Date Smoking Tobacco: Never Assessed Sex and Gender Information Value Date Recorded Sex Assigned at Male 11/13/2024 10:07 AM EST Legal Sex Male 6:41 AM EST Gender Identity Male 11/13/2024 10:07 AM EST Sexual Orientation Straight 11/13/2024 10 :07 AM EST Plan of Treatment Health Maintenance Due Date Last Done Comments COVID-19 Vaccine (#1) 1972 DTaP,Tdap,and Td Vaccines (1 - Tdap) 1986 Hepatitis B Vaccines (1 of 3 - 19+ 3-dose series) 1986 Pneumococcal Vaccine: 50+ Years (1 of 2 - PCV) 1986 Pneumococcal Vaccine: Pediatrics (0 to 5 Years) and At-Risk Patients (6 to 64 Years) (1 of 2 - PCV) 1986 Zoster Vaccines (1 of 2) 2017 Cholesterol Screening (Lipid Panel) 10/10/2022 Colorectal Cancer Screening: Colonoscopy 10/10/2022 Depression Screening 10/10/2022 HIV Screening 10/10/2022 Hepatitis C Screening 10/10/2022 Social Influencers of Health Screening 10/10/2022 Influenza Vaccine (#1) 2024 7, 08/31/2005 HIB Vaccines Aged Out No longer eligi ble based on patient's age to complete this topic HPV Vaccines Aged Out No longer eligi ble based on patient's age to complete this topic Hepatitis A Vaccines Aged Out No long er eligible based on patient's age to complete this topic IPV Vaccines Aged Out No longer eligi ble based on patient's age to complete this topic MMR Vaccines Aged Out No longer eligi ble based on patient's age to complete this topic Meningococcal ACWY Vaccine Aged Out N o longer eligible based on patient's age to complete this topic Meningococcal B Vacine Aged Out No lo nger eligible based on patient's age to complete this topic RSV Immunization Patients Under 20 months Aged Out No longer eligible b ased on patient's age to complete this topic Varicella Vaccines Aged Out No longer eligible based on patient's age to complete this topic Procedures Procedure Name Priority Date/Time Associated Diagnosis Comments US ABDOMEN LIMITED Routine 11/13/2024 1: 37 PM EST Hepatitis B PROTHROMBIN TIME WITH INR Routine 11/13/2024 10:50 AM EST Type B viral hepatitis HEPATITIS B SURFACE ANTIBODY QUANTITATIVE Routine 11/13/2024 10:50 AM EST Type B viral hepatitis ALPHA FETOPROTEIN TUMOR MARKER Routine 11/13/2024 10:50 AM EST Type B viral hepatitis COMPREHENSIVE METABOLIC PANEL Routine 11/13/2024 10:50 AM EST Type B viral hepatitis from Last 3 Months Results * US Abdomen Limited (11/13/2024 1:37 PM EST) Anatomical Region Laterality Modality Body Ultrasound 11/13/2024 2:11 PM EST Impressions 11/13/2024 2:13 PM EST Impression: 1. No hepatic masses. 2. Patent, hepatopedal portal vein. 3. Normal right renal cyst, requiring no specific follow-up. Telerad STEVEN ([id number]) -------- FINAL REPORT -------- Dictated By: Paris Faye Dictated Date: 11/13/2024 14:11 ET Assigned Physician: Paris Faye Reviewed and Electronically Signed By: Paris Faye Signed Date: 11/13/2024 14:13 ET Workstation ID: [id number] Transcribed By: Self Edit Transcribed Date: 11/13/2024 14:11 ET Narrative 11/13/2024 2:13 PM EST History: Chronic hepatitis. Hepatoma screening. Comparison: 03/01/24 Findings: Real-time imaging of the abdomen, limited to the right upper quadrant, was performed. The hepatic echotexture appears normal. No masses are identified. The portal vein is patent and exhibits normal, hepatopedal flow. The gallbladder is physiologically distended and without evidence of calculus or wall thickening. The common duct is normal in caliber, measuring 4.5 mm at the level of the hepatic artery and portal vein. No ascites is seen in the right upper quadrant. A survey view of the right kidney is remarkable for a 16 x 12 x 14 mm cortical cyst in the lower pole. The pancreas is largely obscured by bowel gas shadowing; the visualized portion of the neck appears normal. The spleen is normal in size, measuring 10 cm in length. Procedure Note Paris Faye MD - 11/13/2024 History: Chronic hepatitis. Hepatoma screening. Comparison: 03/01/24 Findings: Real-time imaging of the abdomen, limited to the right upper quadrant, wasperformed. The hepatic echotexture appears normal. No masses are identified. Theportal vein is patent and exhibits normal, hepatopedal flow. The gallbladder is physiologically distended and without evidence ofcalculus or wall thickening. The common duct is normal in caliber,measuring 4.5 mm at the level of the hepatic artery and portal vein. No ascites is seen in the right upper quadrant. A survey view of the rightkidney is remarkable for a 16 x 12 x 14 mm cortical cyst in the lowerpole. The pancreas is largely obscured by bowel gas shadowing; thevisualized portion of the neck appears normal. The spleen is normal in size, measuring 10 cm in length. IMPRESSION: Impression: 1. No hepatic masses. 2. Patent, hepatopedal portal vein. 3. Normal right renal cyst, requiring no specific follow-up. Telerad STEVEN ([id number]) -------- FINAL REPORT -------- Dictated By: Paris Faye Dictated Date: 11/13/2024 14:11 ET Assigned Physician: Paris Faye Reviewed and Electronically Signed By: Paris Faye Signed Date: 11/13/2024 14:13 ET Workstation ID: [id number] Transcribed By: Self Edit Transcribed Date: 11/13/2024 14:11 ET us Edson Mcknight MD [facility] [place] US PROCEDURES Final Res ult * Alpha fetoprotein tumor marker (11/13/2024 10:50 AM EST) AFP <2.5 0.0 - 8.0 ng/mL LAB CHEMISTRY METHOD 11/13/2024 2:[address] [facility] Blood Venous blood specimen / Unknown Venipuncture / Unknown 11/13/2024 10:50 AM EST 11/13/2024 12:[address] [facility] - 11/13/2024 2:02 PM EST The Siemens Advia Centaur Chemiluminescent Immunoassay is used. Results obtained with different assay methods or kits cannot be used interchangeably. Results cannot be interpreted as absolute evidence of the presence or absence of malignant disease. Edson Mcknight MD LAB BLOOD ORDERABLES Final Result Performing Organization Address [facility] Co de Phone Number [facility] [address] [place] [address], [place] [phone] * Hepatitis B surface antibody quantitative (11/13/2024 10:50 AM EST) [facility] Hepatitis B Surface Ab Negative Negative LAB CHEMISTRY METHOD 11/13/2024 2:[address] [facility] Hepatitis B Surface Ab Quantitative <3.1 mIU/mL LAB CHEMISTRY METHOD 11/13/2024 2:[address] [facility] Blood Venous blood specimen / Unknown Venipuncture / Unknown 11/13/2024 10:50 AM EST 11/13/2024 12:[address] [facility] - 11/13/2024 2:02 PM EST >=10 mIU/mL is considered to be consistent with immunity. Edson Mcknight MD LAB BLOOD ORDERABLES Final Result Performing Organization Address [facility] de Phone Number [facility] [address] [place] [address], [place] [phone] * Prothrombin time with INR (11/13/2024 10:50 AM EST) [facility] Protime 12.0 10.6 - 13.9 sec LAB COAGULATION METHOD 11/13/2024 12:[address] [facility] INR 1.0 LAB COAGULATION METHOD 11/13/2024 12:[address] [facility] Blood Venous blood specimen / Unknown Venipuncture / Unknown 11/13/2024 10:50 AM EST 11/13/2024 12:18 PM EST Edson Mcknight MD LAB BLOOD ORDERABLES Final Result Performing Organization Address City/[facility] Co de Phone Number [facility] [address] [place] [address], [place] [phone] * (ABNORMAL) Comprehensive metabolic panel (11/13/2024 10:50 AM EST) Sodium 136 133 - 145 mmol/L LAB CHEMISTRY METHOD 11/13/2024 2:[address] [facility] Potassium 3.7 3.5 - 5.5 mmol/L LAB CHEMISTRY METHOD 11/13/2024 2:[address] [facility] Chloride 106 96 - 110 mmol/L LAB CHEMISTRY METHOD 11/13/2024 2:[address] [facility] CO2 24 21 - 32 mmol/L LAB CHEMISTRY METHOD 11/13/2024 2:[address] [facility] Anion Gap 6 3 - 11 LAB CHEMISTRY METHOD 11/13/2024 2:[address] [facility] Glucose 87 70 - 100 mg/dL LAB CHEMISTRY METHOD 11/13/2024 2:[address] [facility] BUN 27(H) 5 - 25 mg/dL LAB CHEMISTRY METHOD 11/13/2024 2:[address] [facility] Creatinine 1.37(H) 0.70 - 1.30 mg/dL LAB CHEMISTRY METHOD 11/13/2024 2:[address] [facility] eGFR 60 >=60 mL/min/1. 73m2 LAB CHEMISTRY METHOD 11/13/2024 2:[address] [facility] Comment:Calculation based on the??Chronic Kidney Disease Epidemiology Collaboration (CKD-EPI) equation refit??without adjustment for race. BUN/Creatinine Ratio 19.7 LAB CHEMISTRY METHOD 11/13/2024 2:[address] [facility] Calcium 9.0 8.5 - 10.5 mg/dL LAB CHEMISTRY METHOD 11/13/2024 2:[address] [facility] AST (SGOT) 23 10 - 42 unit/L LAB CHEMISTRY METHOD 11/13/2024 2:[address] [facility] ALT (SGPT) 26 10 - 60 unit/L LAB CHEMISTRY METHOD 11/13/2024 2:[address] [facility] Alkaline Phosphatase 78 42 - 121 unit/L LAB CHEMISTRY METHOD 11/13/2024 2:[address] [facility] Total Protein 7.8 6.0 - 8.0 g/dL LAB CHEMISTRY METHOD 11/13/2024 2:[address] [facility] Albumin 3.9 3.2 - 5.0 g/dL LAB CHEMISTRY METHOD 11/13/2024 2:[address] [facility] Total Bilirubin 0.5 0.0 - 1.4 mg/dL LAB CHEMISTRY METHOD 11/13/2024 2:[address] [facility] Blood Venous blood specimen / Unknown Venipuncture / Unknown 11/13/2024 10:50 AM EST 11/13/2024 12:18 PM EST us Edson Mcknight MD LAB BLOOD ORDERABLES Final Result [facility] [address] [place] [address], [place] [phone] from Last 3 Months Insurance [place]ICA[place] - [place] Care Teams Seam Presser Relationship Specialty Start Date End Date Pancho Reno MD [address] Shruthi [place] PCP - General Internal Medicine 10/17/24
--- OUTSIDE RECORDS SUMMARY | 2025-01-15 13:23 | XMS_ITS ---
Author Organization 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 Vital Signs Temperature 98.7 degrees Fahrenheit 08/22/20 23 Blood pressure systolic 000 mm Hg 08/22/20 23 Blood pressure diastolic 00 mm Hg 023 Height 5 ft 9 in in 08/22/2023 Weight 182 lbs 08/22/2023 BMI 26.87 kg/m2 08/22/2023 Encounters Encounter Location Date Provider Diagnosis [facility] [address] [place] [address] 08/22/2023 Frank Rivera Jr Blastocystis hominis infection A07.8 Assessments Encounter Date Diagnosis (ICD Code) Assessment Notes Treatment Notes Treatment Clinical Notes Section Notes 08/22/2023 Blastocystis hominis infection (ICD-10 - A07.8) We discussed blastocystis today. We discussed that this can sometimes be a marker for infection with other parasites and recommended that he have further testing of his stool. At this time he is asymptomatic and I have not recommended any treatment. We discussed colonoscopy for further evaluation. He declines this at this time. Plan Of Treatment Pending Test Test Name Order Date OVA & PARASITES (O&P) 08/22/2023 Cyclospora & Isospora Stool 08/22/2023 Cryptosporidium Ag DFA 08/22/2023 Next Appt Details Follow Up: prn, Reason: Progress Notes * DAVINPAPA EspinozaL ADOB:1964 (57 yo M)Acc No.[id number]:08/22/2023 Progress Notes Patient:?KHURRAM GRANADOS Provider:?Frank Rivera MD :1965???Age:57 Y???Sex:Male Cesar e:08/22/2023 Address:[address] [place], [place] [id number] Pcp:Pancho Reno MD Subjective: * Chief Complaints: * ???1. Patient presents today for an ABN GI PANEL. * HPI: ???New symptom(s):? The patient is a pleasant 57-year-old man seen today in consultation. He complained to his primary care provider about seeing worms in his stool on several occasions. He self treated by taking large amounts of garlic, and has not seen any more parasites. He has no complaints of diarrhea or abdominal pain. Stool testing was done earlier in the year which was positive for Blastocystis. He has not undergone previous colonoscopy. He has no history of suspect food ingestions, or ill contacts, or recent travel. * ROS:?General/Constitutional:?Change in appetite?denies.?Fatigue?denies.?ENT:?Patient denies?difficulty swallowing.?Respiratory:?Patient denies?shortness of breath.?Cardiovascular:?Patient denies?chest pain.?Gastrointestinal:?Comments?See HPI for details.?Genitourinary:?Difficulty urinating?denies.?Incontinence?denies.?Musculoskeletal:?Patient denies?muscle aches.?Skin:?Patient denies?pruritis.?Neurologic:?Patient denies?low back pain.?Psychiatric:?Patient denies?mental or physical abuse.? * Medical History:?Arthritis, Hypertension, SVT, status post ablation. PVCs, Hepatitis B, BPH, Gastroesophageal reflux disease. * Surgical History:?Umbilical hernia repair 2018. * Family History:?Father: alvin espinoza, diagnosed with Heart disease, Diabetes.?Mother: .? No family history of colon cancer or liver cancer. * Social History:?Tobacco Use:?Tobacco Use/Smoking?Patient is a?nonsmoker.?Drugs/Alcohol:?Alcohol Screen?Did you have a drink containing alcohol in the past year??No,?Points?0,?Interpretation?Negative.?Miscellaneous:?Marital status: . Occupation: unemployed. * Medications:?Taking Metoprol ol Tartrate 50 MG Tablet TAKE ONE TABLET BY MOUTH TWICE A DAY WITH FOOD Oral , Taking Omeprazole 20 MG Capsule Delayed Release TAKE ONE CAPSULE BY MOUTH TWICE A DAY Oral , Taking Tenofovir Disoproxil Fumarate 300 MG Tablet TAKE ONE TABLET BY MOUTH EVERY DAY Oral , Taking Mexiletine HCl 200 MG Capsule TAKE ONE CAPSULE BY MOUTH TWICE A DAY WITH MEALS Oral , Taking Losartan Potassium 25 MG Tablet TAKE 1 TABLET BY MOUTH EVERY DAY Oral , Medication List reviewed and reconciled with the patient * Allergies:?N.K.D.A. Objective: * Vitals:?Wt: 182 lbs, Ht: 5 f t 9 in, BMI:26.87 Index, BP: 000/00 mm Hg, Temp: 98.7. * Examination: ???General Examination: ?GENERAL APPEARANCE:?in no acute distress.?HEAD:?normocephalic.?EYES:?sclera non-icteric.?ORAL CAVITY:?mucosa moist.?NECK/THYROID:?no lymphadenopathy.?SKIN:?anicteric.?HEART:?S1, S2 normal, no murmurs.?LUNGS:?clear to auscultation bilaterally.?CHEST:?normal shape and expansion.?ABDOMEN:?soft, nontender, nondistended, bowel sounds present, no organomegaly .?EXTREMITIES:?no clubbing, cyanosis, or edema.?PSYCH:?cognitive function intact.? Assessment: * Assessment: 1.?Blastocystis hominis infe ction - A07.8 (Primary)? We discussed blastocystis to day. We discussed that this can sometimes be a marker for infection with other parasites and recommended that he have further testing of his stool. At this time he is asymptomatic and I have not recommended any treatment. We discussed colonoscopy for further evaluation. He declines this at this time. Plan: * Treatment: ?LAB: Cyclospora & Isospora Stool ?LAB: Cryptosporidium Ag DFA * Immunizations:? Influenza (Not administered - Refused: Patient decision) * Procedure Codes:?3017F COLOR ECTAL CA SCREEN DOC REV, G9903 Pt scrn tbco id as non user, G9744 PATIENT NOT ELIG D/T ACTIVE DX HTN * Preventive Medicine:? ??Counseling:?Care goal follow-up plan:?Above Normal BMI Follow-up?Giving encouragement to exercise,?BMI management provided?Yes.? * Follow Up:?prn * * Sign off status: Completed true * Provider:?Frank Rivera MD Date:?1 Generated for Gorge gates/Wagner/Muniraitting on:?01/15/2025 01:22 PM EDT History and Physical Notes * HPI (History of Present Illness) Category Sub-Category Detail Notes Category Not es New symptom(s) The patient i s a pleasant 57-year-old man seen today in consultation. He complained to his primary care provider about seeing worms in his stool on several occasions. He self treated by taking large amounts of garlic, and has not seen any more parasites. He has no complaints of diarrhea or abdominal pain. Stool testing was done earlier in the year which was positive for Blastocystis. He has not undergone previous colonoscopy. He has no history of suspect food ingestions, or ill contacts, or recent travel. Examination Category Sub-Category Detail Notes Category Not es General Examination GENERAL APPEARANCE: in no acute di stress HEAD: normocephalic EYES: sclera non-icteric NECK/THYROID: no lymphadenopathy HEART: S1, S2 normal, no mu rmurs CHEST: normal shape and exp ansion LUNGS: clear to auscultatio n bilaterally ABDOMEN: soft, nontender, non distended, bowel sounds present, no organomegaly SKIN: anicteric EXTREMITIES: no clubbing, cyanosi s, or edema PSYCH: cognitive function i ntact ORAL CAVITY: mucosa moist
== END ==
LOC: HO.CARD 10:54
PROVIDERS: PCP Internal Medicine; Visit Provider Internal Medicine Cardiovascular Disease
DX: R94.31 Abnormal electrocardiogram [ECG] [EKG] (principal)
CPT/HCPCS: 93350; Q9957

== ENCOUNTER → 2025-01-15 10:57 | Outpatient (BNV) | payer MEDICAID, SELFPAY | PROVIDERS: PCP Internal Medicine | DX: R94.31 Abnormal electrocardiogram [ECG] [EKG] (principal); R06.02 Shortness of breath | CPT/HCPCS: 93016; 93018; 93350; 93352 ==

== ENCOUNTER 2025-03-20 14:47 | Outpatient (AMB) | payer MEDICAID, SELFPAY ==
--- OUTSIDE RECORDS SUMMARY | 2025-03-20 14:49 | XMS_ITS | Patient Health Record ---
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 PVCs Hepatitis B BPH Gastroesophageal reflux disease Surgical History Surgery Date(Month/Year) Umbilical hernia repair 2018
--- OUTSIDE RECORDS SUMMARY | 2025-03-20 14:49 | XMS_ITS | Clinical Summary ---
Author Organization [facility] Address [address] [place] [phone] Phone Care Team Providers Care Education Intern Name Role Phone Pancho Reno MD Primary Care Provider Medications tenofovir disoproxil fumarate (VIREAD) 300 mg tabletIndication s:Hepatitis B TAKE ONE TABLET BY MOUTH EVERY DAY 90 tablet 1 12/13/2024 Active Social History Tobacco Use Types Packs/Day Years [...] Influencers of Health Screening 10/10/2022 Influenza Vaccine (Season Ended) 2025 08/04/2017, 08/31/2005 HIB Vaccines Aged Out No longer [...] age to complete this topic Meningococcal B Vaccine Aged Out No l onger eligible based on patient's age to complete this topic RSV Immunization Patients Under 20 months Aged Out No longer eligible b ased on patient's age to complete this topic Varicella Vaccines Aged Out No longer eligible based on patient's age to complete this topic Insurance [place] - [place] Care Teams Education Intern Relationship Specialty Start Date End Date Pancho Reno MD [address] [place] [address] Dr Shruthi [place] PCP - General Internal Medicine 10/17/24
--- NOTE | 2025-03-20 14:58 | A.OFFVIS_ITS ---
Vital Signs 03/20/25 14:59 Height 5 ft 9 in Weight 194 lb 0.108 oz BMI 28.6 BP 120/70 Blood Pressure Location Lt brachial Position Sitting Pulse 79 Pulse Source Pulse Oximeter Intake Visit Reasons: fu stress test Intake Note: f/u-stress test Laborer Adjustable Steel Joist Required: No Accompanied by: Self / Same As Patient Allergies No Known Allergies Allergy (Verified 10/24/24 16:27) Medication List - Last Reconciled 03/20/25 by Davian Reyes MD cetirizine (Zyrtec) 10 mg PO DAILY PRN metoprolol succinate ER 50 mg PO DAILY mexiletine 200 mg PO BID omeprazole 20 mg PO BID tenofovir disoproxil fumarate (Viread) 300 mg PO DAILY terazosin 5 mg PO BEDTIME 30 days HPI Comments Details: 59-year-old gentleman here for f/u. He has supraventricular tachycardia and was referred to electrophysiology and it appears he underwent ablation. He also has stress testing done before ablation and it appears that his testing was normal. After ablation he started feeling palpitations and skipped heartbeats. Further workup has shown premature ventricular complexes. It appears that these were the cause for his supraventricular tachycardia. He was referred to [place] by Dr. Baxter and it appears there were started him on mexiletine. Since then he has been doing well. He has no PVCs. He has noticed that his blood pressure is low. This has happened previously to. He is denying any symptoms but his blood pressure in the office is 94/70. 07/25/2024: He returns for follow-up. He is getting off and on palpitations. He is taking mexiletine 200 mg twice a day along with metoprolol tartrate 50 mg twice a day. No chest discomfort or shortness of breath. Occasional headaches. His EKG in the office is abnormal with inferior T-wave inversions and lateral nonspecific T-wave changes. 12/17/24: He was referred for echo and stress. He did echo which was essentially normal. He did not do the stress test. Occasional palpitations. Tolerating current meds ok. 03/20/2025: Here for follow-up. Has been doing well. No palpitations. Taking medication regularly. Previously had echocardiography which was normal. Also had T-wave changes on EKG which led to exercise stress echo which was normal. He is denying any exertional chest discomfort or shortness of breath. [facility] Medical History Arthritis High cholesterol HTN (hypertension) Surgical History History of hernia surgery Family History Mother CAD (coronary artery disease) Father No problems noted. Social History Alcohol intake: never Patient Tobacco Use Status: Never used Tobacco Review of Systems Const Denies chills, Denies fatigue, Denies fever(s), Denies frequent falls, Denies weakness, Denies weight gain and Denies weight loss ENT Denies dizziness Card Denies chest pain, Denies leg edema, Denies lightheadedness, Denies palpitations, Denies dyspnea and Denies dyspnea on exertion Resp Denies cough, Denies dyspnea and Denies dyspnea on exertion GI Denies hematochezia Musc Denies abnormal gait, Denies muscle weakness, Denies numbness, Denies radiating pain into limb and Denies tingling Neuro Denies abnormal gait, Denies dizziness, Denies frequent falls, Denies numbness, Denies tingling and Denies weakness Endo Denies fatigue and Denies palpitations Physical Exam Vital Signs: Last Vital Signs Pulse 79 03/20/25 14:59 BP 120/70 03/20/25 14:59 BMI result Body Mass Index 28.6 GENERAL APPEARANCE: in no acute distress, pleasant. NECK: no carotid bruit, no jugular venous distention. SKIN: no suspicious lesions, warm and dry. HEART: no murmurs, regular rate and rhythm. LUNGS: clear to auscultation bilaterally. ABDOMEN: soft, nontender. EXTREMITIES: no edema. PERIPHERAL PULSES: equal. NEUROLOGIC: No gross deficits, AAO X 3 Assessment & Plan Assessment & Plan (1) HTN (hypertension): Code(s): I10 - Essential (primary) hypertension Category: Medical (2) Premature ventricular complex: Code(s): I49.3 - Ventricular premature depolarization Category: Medical Plan 59-year-old gentleman who is here for follow-up. He has background history of supraventricular tachycardia for which she underwent ablation. It appears that he had premature ventricular complexes which were triggering SVT and he was symptomatic from the PVCs after ablation. For this issue he saw electrophysiology in [place] and was started on mexiletine and since then he has been stable. He is still getting occasional palpitations but overall stable and EKG in the office is not showing any further premature ventricular complexes. He went echocardiography and stress echocardiogram which were both normal. No exertional symptoms. Stable on current medications. He will see us back in 4 months. Thank you for allowing me to participate in the care of your patient. Please feel free to contact me if you have any questions. Coding Level of Care Code Est Pt Level 4 (62964) Diagnoses HTN (hypertension) I10 Premature ventricular complex I49.3
[2025-03-20 14:59] VITALS: BP 120/70; PULSE 79; BMI 28.6
== END 2025-03-20 15:16 | disposition home or self-care (01) ==
LOC: HO.HCS 14:47
PROVIDERS: PCP Internal Medicine; Visit Provider Internal Medicine Cardiovascular Disease
DX: I10 Essential (primary) hypertension (principal); I49.3 Ventricular premature depolarization
CPT/HCPCS: 99214

== ENCOUNTER → 2025-03-20 14:47 | Outpatient (BNVA) | payer MEDICAID, SELFPAY | PROVIDERS: PCP Internal Medicine; Visit Provider Internal Medicine Cardiovascular Disease | DX: I10 Essential (primary) hypertension (principal); I49.3 Ventricular premature depolarization | CPT/HCPCS: 99212 ==

== ENCOUNTER 2025-03-25 09:58 | Outpatient (AMB) | payer OTHER, SELFPAY ==
[2025-03-25 09:04] VITALS: BP 120/80; PULSE 86; TEMP 36.3; O2SAT 98; BMI 28.8
--- NOTE | 2025-03-25 09:04 | MHC.PC.OV ---
Vital Signs 03/25/25 09:04 Height 5 ft 9 in Weight 195 lb BMI 28.8 BP 120/80 Blood Pressure Location Rt brachial Position Sitting Pulse 86 Pulse Source Pulse Oximeter Temp 97.4 F Temp Source Axillary Pulse Oximetry (%) 98 Oxygen Delivery Method Room Air Intake Visit Reasons: Routine - see comments Supervisor Park Workers Required: No Accompanied by: Self / Same As Patient Allergies No Known Allergies Allergy (Verified 03/25/25 09:05) Tobacco use date assessed: 03/25/25 Dental Screening Dental Screen Date: 03/25/25 Did you have a dental visit in the last 12 months?: No Did you have a dental problem in the last 6 months where you did not have access to dental care?: No PFSH Medical History (Updated 03/25/25 @ 10:24 by Magen Rey MD) Tinnitus High cholesterol HTN (hypertension) Arthritis Surgical History History of hernia surgery Family History (Updated 03/25/25 @ 10:12 by Irena Byrd MA) Mother CAD (coronary artery disease) Father No problems noted. Social History Housing: Condominium Alcohol intake: never Patient Tobacco Use Status: Never used Tobacco e-Cigarette/Vaping Use: Never Used service: No Current occupational status: unemployed Cognitive needs: No Hearing needs: No Vision needs: Yes (reading glasses) Questionnaire PHQ-9 Over the last 2 weeks, how often have you been bothered by any of the following problems? 1. Little interest or pleasure in doing things: not at all 2. Feeling down, depressed, or hopeless: not at all 3. Trouble falling or staying asleep, or sleeping too much: not at all 4. Feeling tired or having little energy: not at all 5. Poor appetite or overeating: not at all 6. Feeling bad about yourself - or that you are a failure or have let yourself or your family down: not at all 7. Trouble concentrating on things, such as reading the newspaper or watching television: not at all 8. Moving or speaking so slowly that other people could have noticed. Or the opposite - being so fidgety or restless that you have been moving around a lot more than usual: not at all 9. Thoughts that you would be better off or of hurting yourself in some way: not at all Total score: 0 Source: Developed by Drs. Carlos Clark, Marlo Brown and colleagues, with an educational kvng from [employer]. Thrive Questionnaire Date Thrive assessed: 03/25/25 I am a: Patient Within the past 12 months, did the food you bought not last and you didn't have the money to get more?: Never true Within the past 12 months, did you worry whether your food would run out before you got money to buy more?: Never true Do you have trouble paying for medicines?: No Do you have trouble getting transportation to medical appointments?: No Do you have trouble paying your heating and electricity bill?: No Do you have trouble taking care of your child, family member or friend?: No Do you have trouble with day-to-day activities such as bathing, preparing meals, shopping, managing finances, etc.?: No Are you currently unemployed and looking for a job?: No Are you interested in more education?: No THRIVE Score: 0 AUDIT C Alcohol Use Questionnaire (AUDIT-C) 1. How often do you have a drink containing alcohol?: Never 3. How often do you have six or more drinks on one occasion?: Never Total Score: 0 AUGUSTIN-7 AMB Questionnaire AUGUSTIN-7 Date AUGUSTIN - 7 assessed: 03/25/25 Feeling nervous, anxious, or on edge: 0 = Not at all Not being able to stop or control worryin = Not at all Worrying too much about different things: 0 = Not at all Trouble relaxin = Not at all Being so restless that it is hard to sit still: 0 = Not at all Becoming easily annoyed or irritable: 0 = Not at all Feeling afraid as if something awful might happen: 0 = Not at all Total AUGUSTIN-7 score (0-4 normal; 5-9 mild; 10-14 moderate; 15-21 severe): 0 Source: Developed by Drs. Carlos Clark, Marlo Brown and colleagues, with an educational kvng from [employer]. Physical exam (Primary Care) Vital Signs: Last Vital Signs Temp 97.4 F 03/25/25 09:04 Pulse 86 03/25/25 09:04 BP 120/80 03/25/25 09:04 Pulse Ox 98 03/25/25 09:04 Oxygen Delivery Method Room Air 03/25/25 09:04 BMI result Body Mass Index 28.8 Tobacco/Smoking Status: Tobacco use Status Tobacco use date assessed 03/25/25 03/25/25 09:06 Patient Tobacco Use Status Never used Tobacco 03/25/25 09:06 e-Cigarette/Vaping Use Never Used 03/25/25 09:06 PHQ-9: PHQ-9 Score PHQ-9: Total score 0 03/25/25 09:06 Thrive Assessment: Date of Thrive Assessment Date Thrive assessed 03/25/25 03/25/25 09:06 Coding Level of Care Code New Pt Level 4 (83619) Complex EM visit Add On G2211 Diagnoses SVT (supraventricular tachycardia) I47.1 HTN (hypertension) I10 Tinnitus H93.19 Assessment & Plan Assessment & Plan (1) SVT (supraventricular tachycardia): Code(s): I47.1 - Supraventricular tachycardia Category: Medical Plan: On Mexiletine. Contidtion is stable (2) HTN (hypertension): Code(s): I10 - Essential (primary) hypertension Category: Medical Plan: BP in range. Continue current medications. (3) Tinnitus: Code(s): H93.19 - Tinnitus, unspecified ear Category: Medical Plan: ENT appt made. Plan History of Present Illness The patient is a 59 year old male presenting with supraventricular tachycardia. He has been managing this condition with mexiletine, which has proven effective when taken as prescribed in the morning and evening, though he experiences tiredness which may exacerbate symptoms when medication is missed. His medical history includes Human Immunodeficiency Virus (HIV) for which he is on antiretroviral therapy, and hepatitis B, which he is treating to protect his liver. His rheumatoid arthritis is managed with bi-weekly Remicade infusions, though he missed a recent dose and will reschedule. He formerly hesitated to undergo a colonoscopy but now expresses willingness due to family advice. Social History - Lives with his . - Does not smoke. - Retired from work due to prolonged illness. - Able to drive, but limits driving at night. Review of Systems - Cardiovascular: Reports supraventricular tachycardia; takes mexiletine. - Infectious Disease: Reports HIV and is on antiretroviral therapy. - Hepatology: Reports hepatitis B, managed with medication. - Musculoskeletal: Reports rheumatoid arthritis, receiving Remicade. - Ears, Nose, Throat: Reports persistent tinnitus in the right ear for two years. Physical Exam General: Cooperative and healthy appearing Nutritional Appearance: Well nourished Orientation/consciousness: Patient oriented x3 Limitations: No limitations Head: Normal to inspection General: Appearance normal, both eyes and all related structures Neck: Normal visual inspection Chest: Normal palpation of entire chest wall Respiratory: Normal respiratory effort Neurology: Patient oriented x3 Results Plan 1. Supraventricular Tachycardia - Continue mexiletine without interruptions. 2. Human Immunodeficiency Virus Hiv - Maintain prescribed antiretroviral regimen. 3. Hepatitis B - Ongoing treatment to manage hepatic health. 4. Rheumatoid Arthritis - Resume regular Remicade schedule. 5. Tinnitus - Evaluate with an ENT specialist. Discussion Notes During the visit, we discussed the continuation of mexiletine for his supraventricular tachycardia, emphasizing the importance of adherence to prevent symptoms exacerbation. The patient is well-managed with current antiretrovirals for HIV and ongoing therapy for hepatitis B. Due to a missed Remicade dose for rheumatoid arthritis, plans to reinitiate were reiterated. The patient has a chronic right ear tinnitus, prompting referral to otolaryngology. After addressing initial concerns, the patient agreed to undergo a colonoscopy, given reassurance from a family member, for comprehensive screening. Patient Instructions - Continue taking mexiletine as prescribed. - Adhere to current HIV treatment regimen. - Maintain hepatitis B management plan. - Reschedule your Remicade infusion promptly. - Attend referral with ENT for tinnitus. - Expect a call to schedule your colonoscopy. - Always consult before starting any new medication. Orders: Orders Thyroid Stimulating Hormone Today I10 - Essential (primary) hypertension, I47.1 - Supraventricular tachycardia Complete Blood Count no Diff Today I10 - Essential (primary) hypertension, I47.1 - Supraventricular tachycardia Basic Metabolic Panel Today I10 - Essential (primary) hypertension, I47.1 - Supraventricular tachycardia Lipid Panel Today I10 - Essential (primary) hypertension, I47.1 - Supraventricular tachycardia Liver Panel Today I10 - Essential (primary) hypertension, I47.1 - Supraventricular tachycardia UA and rflx microscopic Today I10 - Essential (primary) hypertension, I47.1 - Supraventricular tachycardia Referrals Gastroenterology Referral Z12.11 - Encounter for screening for malignant neoplasm of colon Ear/Nose/Throat Referral H93.19 - Tinnitus, unspecified ear, I10 - Essential (primary) hypertension
--- OUTSIDE RECORDS SUMMARY | 2025-03-25 10:24 | XMS_ITS | Patient Health Record ---
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 PVCs Hepatitis B BPH Gastroesophageal reflux disease Surgical History Surgery Date(Month/Year) Umbilical hernia repair 2018
--- OUTSIDE RECORDS SUMMARY | 2025-03-25 10:24 | XMS_ITS | Clinical Summary ---
Author Organization [facility] Address [address] [place] [phone] Phone Care Team Providers Care Lime Boiler Name Role Phone Pancho Reno MD Primary Care Provider [phone] Medications tenofovir disoproxil fumarate (VIREAD) 300 mg [...] topic Insurance MEDICAID - [place] Care Teams Lime Boiler Relationship Specialty Start Date End Date Pancho Reno MD [address] [place] [address] Dr Shruthi [place] PCP - General Internal Medicine 10/17/24
== END 2025-03-25 10:24 | disposition home or self-care (01) ==
LOC: HO.HMCHD 09:59
PROVIDERS: PCP Internal Medicine; Visit Provider Internal Medicine
DX: I47.10 Supraventricular tachycardia, unspecified (principal); I10 Essential (primary) hypertension; H93.19 Tinnitus, unspecified ear

== ENCOUNTER → 2025-03-25 09:58 | Outpatient (BNVA) | payer OTHER, SELFPAY | PROVIDERS: PCP Internal Medicine; Visit Provider Internal Medicine | DX: I47.10 Supraventricular tachycardia, unspecified (principal); I10 Essential (primary) hypertension; H93.19 Tinnitus, unspecified ear; Z79.899 Other long term (current) drug therapy | CPT/HCPCS: 99202 ==

== ENCOUNTER 2025-03-26 07:55 | Outpatient (REF) | payer OTHER, SELFPAY ==
--- OUTSIDE RECORDS SUMMARY | 2025-03-26 07:57 | XMS_ITS | Patient Health Record ---
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 [address] [place] [phone] [id number] KHURRAM GRANADOS Self - patient is the insured Medical (General) History Medical History History ICD Code Arthritis Hypertension SVT, status post ablation. PVCs Hepatitis B BPH Gastroesophageal reflux disease Surgical History Surgery Date(Month/Year) Umbilical hernia repair 2018
--- OUTSIDE RECORDS SUMMARY | 2025-03-26 07:57 | XMS_ITS | Clinical Summary ---
Author Organization [facility] Address [address] [place] [phone] Phone Care Team Providers Care Fly Finisher Name Role Phone Pancho Reno MD Primary Care Provider [phone] Medications tenofovir disoproxil fumarate (VIREAD) 300 mg [...] topic Insurance MEDICA[place] - [place] Care Teams Fly Finisher Relationship Specialty Start Date End Date Pancho Reno MD [address] [place] [address] Dr Shruthi [place] PCP - General Internal Medicine 10/17/24
[2025-03-26 11:14] LABS: Hematocrit 43.7 % (42.0-52.0); Hemoglobin 14.5 g/dl (14.0-18.0); Mean Corpuscular HGB Conc 33.2 g/dl (31.0-36.0); Mean Corpuscular Hemoglobin 30.3 pg (27.0-33.0); Mean Corpuscular Volume 91.4 fL (80.0-98.0); Mean Platelet Volume 10.2 fL (9.4-12.4); Platelet Count 227 X10*3/uL (160-400); Red Blood Count 4.78 X10*6/uL (4.60-5.80); Red Cell Distribution Width 12.7 % (11.0-16.0); White Blood Count 6.7 X10*3/uL (4.8-10.8)
[2025-03-26 11:43] LABS: Alanine Aminotransferase 24 U/L (0-40); Albumin Level 4.1 g/dL (3.5-5.0); Alkaline Phosphatase 79 U/L (39-117); Anion Gap 9 (12-20); Aspartate Amino Transferase 35 U/L (5-37); Bilirubin Direct 0.2 mg/dL (0.0-0.5); Bilirubin Total 0.4 mg/dL (0.0-1.0); Blood Urea Nitrogen 21 mg/dL (9-16); Calcium 8.9 mg/dL (8.4-10.2); Carbon Dioxide 26 mmol/L (22-29); Chloride 106 mmol/L (96-108); Cholesterol 154 mg/dL (<200); Estimated Glomerular Filt Rate > 60; Glucose Random 93 mg/dL (60-115); HDL Cholesterol 29 mg/dL (>40); LDL Cholesterol Calculated 107 mg/dL (<100); Sodium 137 mmol/L (135-145); Thyroid Stimulating Hormone 1.63 uIU/mL (0.32-4.0); Total Protein 7.6 g/dL (6.5-8.0); Triglycerides 92 mg/dL (<150)
== END 2025-03-26 07:56 | disposition home or self-care (01) ==
LOC: HO.10HDL 07:55
PROVIDERS: Visit Provider Internal Medicine
DX: I10 Essential (primary) hypertension (principal); I47.10 Supraventricular tachycardia, unspecified
CPT/HCPCS: 36415; 80048; 80061; 80076; 84443; 85027

== ENCOUNTER 2025-03-27 08:14 | Outpatient (REF) | payer OTHER, SELFPAY ==
[2025-03-27 10:07] LABS: Appearance Urine Clear; Color Urine Yellow; Glucose Urine UA Negative (Negative); Leukocyte Esterase Urine Negative (Negative); Nitrite Urine Negative (Negative); PH 5.5 (5.0-9.0); UMIC TRIGGER UA YES; Urine Blood Small (1+) (Negative); Urine Ketones Negative (Negative); Urine Protein Negative (Neg-Trace)
[2025-03-27 10:15] LABS: Bacteria Urine None Seen (None Seen); Hyaline Casts Urine 0-2 /LPF (0-2); Squamous Epithelial Cell Urine 0-2 /HPF (0-2); WBC Urine 0-5 /HPF (0-5)
== END 2025-03-27 08:15 | disposition home or self-care (01) ==
LOC: HO.10HDLNP 08:14
PROVIDERS: Visit Provider Internal Medicine
DX: I47.10 Supraventricular tachycardia, unspecified (principal); I10 Essential (primary) hypertension
CPT/HCPCS: 81001; 81003

== ENCOUNTER 2025-05-10 18:15 | Emergency (ER) | payer OTHER, SELFPAY ==
--- NOTE | ~2025-05-10 | CT_ITS ---
CLINICAL HISTORY: headache, unequal pupils, L >R CT head without contrast Comparison: None provided Findings: No intra-axial mass, midline shift, hydrocephalus, or acute hemorrhage. No significant atrophy-like change or white matter disease. Mucous retention cyst in the left maxillary sinus. Mucous retention cysts in the left ethmoid air cells. The orbits are unremarkable. No skull fracture. IMPRESSION: 1. No acute intracranial findings. This document has been electronically signed by: Godfrey Knutson MD on 05/10/2025 19:52:50
[2025-05-10 18:17] VITALS: BP 150/87; PULSE 80; RESP 20; TEMP 36.4; O2SAT 98; BMI 26.8
--- NOTE | 2025-05-10 18:18 | ED.GENADULT ---
HPI - General Adult General Chief complaint: Neuro Symptoms/Deficit Stated complaint: Lower lip numbness/sweating Time Seen by Provider: 05/10/25 18:38 Source: patient Mode of arrival: ambulatory Limitations: no limitations History of Present Illness ED Provider: HPI narrative: patient is 59 years old with history of hypertension, HIV SVT status post ablation on mexiletine not on any anticoagulation comes here for left-sided headache with lip numbness started for last 3 days patient does have headache constant but lower lip numbness comes and goes lasting for few hours no history of migraine headache no other weakness MD complaint: Related Data Home Medications ?Medication ?Instructions ?Recorded ?Confirmed tenofovir disoproxil fumarate 300 300 mg PO DAILY 02/12/21 03/20/25 mg tablet (Viread) omeprazole 20 mg capsule,delayed 20 mg PO BID 07/01/21 03/20/25 release cetirizine 10 mg tablet (Zyrtec) 10 mg PO DAILY PRN 09/28/21 03/20/25 mexiletine 200 mg capsule 200 mg PO BID 08/11/22 03/20/25 Previous Rx's ?Medication ?Instructions ?Recorded terazosin 5 mg capsule 5 mg PO BEDTIME 30 days #30 caps 07/01/21 metoprolol succinate 50 mg 50 mg PO DAILY #90 tabs 02/12/25 tablet,extended release 24 hr aspirin 81 mg tablet 81 mg PO DAILY #30 tabs 05/10/25 Allergies Allergy/AdvReac Type Severity Reaction Status Date / Time No Known Allergies Allergy Verified 05/10/25 18:18 [facility] Past Medical History Medical History (Updated 05/11/25 @ 00:00 by Makayla Leigh) Tinnitus High cholesterol HTN (hypertension) Arthritis Surgical History History of hernia surgery Family History Family History (Updated 03/25/25 @ 10:12 by Irena Byrd MA) Mother CAD (coronary artery disease) Father No problems noted. Social History Social History Housing: Condominium Alcohol intake: never Patient Tobacco Use Status: Never used Tobacco Smoked in Last 30 Days: No e-Cigarette/Vaping Use: Never Used Use of substances other than those prescribed or required for medical reasons: No Advance Directives: No Advance Directives Information Provided: No service: No Current occupational status: unemployed Cognitive needs: No Hearing needs: No Vision needs: Yes (reading glasses) Physical Exam ED Vital Signs: Vital Signs - 24 hr 05/10/25 18:17 05/10/25 20:10 05/10/25 20:30 Temperature 97.6 F 98.4 F 98.4 F Pulse Rate 80 59 59 Respiratory Rate 20 20 20 Blood Pressure 150/87 H 123/78 123/78 Pulse Oximetry 98 99 99 Oxygen Delivery Method Room Air Room Air Room Air BMI result Body Mass Index 26.8 Appearance: Alert. Oriented X3. No acute distress. Eyes: PERRLA, No Nystagmus EOMI ENT: Pharynx normal. Oral Mucosa moist Neck: Normal inspection. Neck supple. CVS: Normal heart rate and rhythm. Pulses normal. Respiratory: No respiratory distress. Equal air entry bilateral, no wheezing/rales/rhonchi Abdomen: Soft and nontender. Bowel sounds are present, no mass palpable, no CVA tenderness Skin: Skin warm and dry. Normal skin color. Normal skin turgor. Extremities: No lower extremity edema. No calf tenderness Neuro: Oriented X 3. No motor deficit. No objective sensory deficit.No cerebellar signs , cranial nerves II-XII intact no facial asymmetry sensation of the lips are normal NIH Stroke Scale Internal: Initial- Upon Arrival Level of Consciousness: Alert Level of Consciousness Questions: Answers both questions correctly Level of Consciousness Commands: Performs both tasks correctly Best Gaze: Normal Visual: No visual loss Facial Palsy: Normal Motor Arm (Right): No drift Motor Arm (Left): No drift Motor Leg (Right): No drift Motor Leg (Left): No drift Limb Ataxia: Absent Sensory: Normal Best Language: No aphasia Dysarthia: Normal Extinction and Inattention: No abnormality Score: 0 Course Course Course Narrative: This is an RME: Additional HPI, ROS, PE not included below will be deferred to primary provider. RME assessment and note performed by: Amirah Valencia PA-C This is a 59 year old male, with a hx of HTN, HLD, and SVT who presents to the ER with a complaint of left sided headaches, sweats, lower lip numbness x 3 days. L pupil is noted to be slightly larger than R. Still reactive. No trauma. Neurologically intact. Plan: Labs, CT, further ER eval needed Medications Administered Discontinued Medications Generic Name Dose Route Start Last Admin Trade Name Enoc PRN Reason Stop Dose Admin Aspirin 325 mg 05/10/25 19:42 05/10/25 19:55 Aspirin Enteric Coated 325 Mg Tablet.Dr GRIFFITHS 05/10/25 19:43 325 mg ONCE ONE Administration Medical Decision Making Medical Decision Making [facility] Narrative: Patient with headache for last 4 days with nonspecific tingling sensation of the lower lip bilateral no prior history of migraine headaches CT scan of the head is negative for any bleed patient has no other neuro deficit patient likely has a migraine equivalent neurological symptom will prescribe aspirin for now advised to follow up with neurologist Differential Diagnosis Differential Diagnoses: The differential diagnosis associated with the presentation includes TIA/CVA/migraine Lab Data [facility] Lab Attestation statement: I reviewed the patient's lab results. 05/10/25 18:35 05/10/25 18:36 Labs: Lab Results 05/10/25 05/10/25 Range/Units 18:35 18:36 WBC 7.0 (4.8-10.8) X10*3/uL RBC 4.71 (4.60-5.80) X10*6/uL Hgb 14.5 (14.0-18.0) g/dl Hct 42.5 (42.0-52.0) % MCV 90.2 (80.0-98.0) fL MCH 30.8 (27.0-33.0) pg MCHC 34.1 (31.0-36.0) g/dl RDW 12.4 (11.0-16.0) % Plt Count 201 (160-400) X10*3/uL MPV 9.6 (9.4-12.4) fL Immature Gran % (Auto) 0.3 (0.0-0.4) % Neut % (Auto) 49.7 (45-73) % Lymph % (Auto) 36.1 (20-40) % Sevier % (Auto) 8.2 (2-11) % Eos % (Auto) 4.5 H (0-4) % Baso % (Auto) 1.2 (0-2) % Lymph # (Auto) 2.5 (1.2-4.9) X10*3/uL Sevier # (Auto) 0.6 (0.1-1.2) X10*3/uL Eos # (Auto) 0.3 (0.0-0.4) X10*3/uL Baso # (Auto) 0.1 (0.0-0.2) X10*3/uL Abs Immat Gran (auto) 0.02 (0.00-0.03) X10*3/uL Absolute Neuts (auto) 3.5 (2.0-8.3) x10*3/uL Absolute Nucleated RBC 0.000 (0.0-0.012) X10*3/uL Nucleated RBC % (auto) 0.0 (0.0-0.2) /100WBC PT 11.7 (10.9-12.4) SEC INR 1.0 (0.9-1.1) APTT 32.8 (26.0-36.8) SEC Sodium 139 (135-145) mmol/L Potassium 5.0 D (3.3-5.1) mmol/L Chloride 109 H (96-108) mmol/L Carbon Dioxide 22 (22-29) mmol/L Anion Gap 13 (12-20) BUN 26 H (9-16) mg/dL Creatinine 1.18 (0.5-1.4) mg/dL Estim Creat Clear Calc 75.8 Estimated GFR > 60 Random Glucose 93 (60-115) mg/dL Calcium 9.0 (8.4-10.2) mg/dL Magnesium 2.1 (1.6-2.6) mg/dL Total Bilirubin 0.3 (0.0-1.0) mg/dL Direct Bilirubin < 0.1 (0.0-0.5) mg/dL AST 47 H (5-37) U/L ALT 27 (0-40) U/L Alkaline Phosphatase 87 (39-117) U/L Troponin I High Sens 5.4 (<3.5-35.0) ng/L Total Protein 8.6 H (6.5-8.0) g/dL Albumin 4.3 (3.5-5.0) g/dL Independent Interpretation I performed an independent interpretation of an: CT Scan Interpretation: No acute Radiology Impression Discussion of test interpretation with radiology: I have reviewed the radiologist's reading. Radiologist Impression: No acute finding Discharge Plan Discharge Clinical Impression: Migraine equivalent Patient Disposition: Home, Self-Care Instructions: Migraine Headache (ED) Additional Instructions: Your symptoms likely from migraine headache Take aspirin daily for now Follow up with the PCP/neurologist Report if worsening of the symptoms/weakness Prescriptions: New aspirin 81 mg tablet 81 mg PO DAILY Qty: 30 0RF No Action metoprolol succinate 50 mg tablet extended release 24 hr 50 mg PO DAILY Qty: 90 3RF tenofovir disoproxil fumarate [Viread] 300 mg tablet 300 mg PO DAILY omeprazole 20 mg capsule,delayed release(DR/EC) 20 mg PO BID terazosin 5 mg capsule 5 mg PO BEDTIME 30 Days Qty: 30 1RF cetirizine [Zyrtec] 10 mg tablet 10 mg PO DAILY PRN mexiletine 200 mg capsule 200 mg PO BID Referrals: Annika Galvan MD [Physician, Neurology] Referral Note: Migraine equivalent Interventions: ED Discharge Assessment Last Done: 05/10/25 20:30 Discharge Date/Time: 05/10/25 20:23 Print Language: Welsh
--- NOTE | 2025-05-10 18:25 | ECG_ITS ---
Test Reason : WEAKNESS Blood Pressure : */* mmHG Vent. Rate : 72 BPM Atrial Rate : 72 BPM P-R Int : 158 ms QRS Dur : 82 ms QT Int : 380 ms P-R-T Axes : 58 20 32 degrees QTcB Int : 416 ms Normal sinus rhythm Normal ECG When compared with ECG of 06-Feb-2021 15:23, No significant change was found Referred By: Amirah Valencia Electronically Signed By: YANET AGUDELO MD
[2025-05-10 18:42] LABS: MANUAL DIFF FLAG NO
[2025-05-10 18:44] LABS: Hematocrit 42.5 % (42.0-52.0); Hemoglobin 14.5 g/dl (14.0-18.0); Imm Gran Abs Auto 0.02 X10*3/uL (0.00-0.03); Imm Gran Pct Auto 0.3 % (0.0-0.4); Lymphocytes Absolute Auto 2.5 X10*3/uL (1.2-4.9); Mean Corpuscular HGB Conc 34.1 g/dl (31.0-36.0); Mean Corpuscular Hemoglobin 30.8 pg (27.0-33.0); Mean Corpuscular Volume 90.2 fL (80.0-98.0); NRBC Abs Auto 0.000 X10*3/uL (0.0-0.012); NRBC Pct Auto 0.0 /100WBC (0.0-0.2); Platelet Count 201 X10*3/uL (160-400); Red Blood Count 4.71 X10*6/uL (4.60-5.80); White Blood Count 7.0 X10*3/uL (4.8-10.8)
--- OUTSIDE RECORDS SUMMARY | 2025-05-10 18:48 | XMS_ITS | Clinical Summary ---
Author Organization [facility] Address [address] [place] [address] Phone Care Team Providers Care Chief Legal Officer Name Role Phone Pancho Reno MD Primary Care Provider [phone] Medications tenofovir disoproxil fumarate (VIREAD) 300 mg tabletIndication s:Hepatitis B TAKE ONE TABLET BY MOUTH EVERY DAY 90 tablet 1 12/13/2024 Active Encounters Date Type Department Care Team Description 05/08/2025 Telephone Gastroenterology - [address] [phone] Yanely Garza MA Results 04/30/2025 Telephone Gastroenterology - [address] [place] [phone] Yanely Garza MA from Last 3 Months Social History [...] of Health Screening 10/10/2022 Influenza Vaccine (#1) 2025 7, 08/31/2005 HIB Vaccines Aged Out No [...] Procedure Name Priority Date/Time Associated Diagnosis Comments HEPATITIS ELR STATE REPORTATBLES Routine 04/30/2025 9:38 AM EDT Cirrhosis of liver without ascites, unspecified hepatic cirrhosis type (CMS/HCC V24, CMS/HCC V28) Hepatitis B infection without delta agent without hepatic coma, unspecified chronicity AST, ALT, BILIRUBIN ELR STATE REPORTABLES Routine 04/30/2025 9:38 AM EDT Cirrhosis of liver without ascites, unspecified hepatic cirrhosis type (CMS/HCC V24, CMS/HCC V28) Hepatitis B infection without delta agent without hepatic coma, unspecified chronicity HEPATITIS B SURFACE ANTIGEN CONFIRMATION Routine 04/30/2025 9:38 AM EDT Cirrhosis of liver without ascites, unspecified hepatic cirrhosis type (CMS/HCC V24, CMS/HCC V28) Hepatitis B infection without delta agent without hepatic coma, unspecified chronicity HEPATITIS B SURFACE ANTIGEN WITH CONFIRMATION Routine 04/30/2025 9:38 AM EDT Cirrhosis of liver without ascites, unspecified hepatic cirrhosis type (CMS/HCC V24, CMS/HCC V28) Hepatitis B infection without delta agent without hepatic coma, unspecified chronicity HEPATITIS B SCREENING PANEL Routine 04/30/2025 9:38 AM EDT Cirrhosis of liver without ascites, unspecified hepatic cirrhosis type (CMS/HCC V24, CMS/HCC V28) Hepatitis B infection without delta agent without hepatic coma, unspecified chronicity ALPHA FETOPROTEIN TUMOR MARKER Routine 04/30/2025 9:38 AM EDT Cirrhosis of liver without ascites, unspecified hepatic cirrhosis type (CMS/HCC V24, CMS/HCC V28) Hepatitis B infection without delta agent without hepatic coma, unspecified chronicity HEPATIC FUNCTION PANEL Routine 04/30/2025 9:38 AM EDT Cirrhosis of liver without ascites, unspecified hepatic cirrhosis type (CMS/HCC V24, CMS/HCC V28) Hepatitis B infection without delta agent without hepatic coma, unspecified chronicity from Last 3 Months Results * Hepatitis ELR State reportatbles (04/30/2025 9:38 AM EDT) Hep B Core IgM 04/30/2025 5:44 PM EDT [facility] Hepatitis A Antibody IgM 04/30/2025 5:44 PM EDT [facility] Hep B Surface Ag Confirmation 04/30/2025 5:44 PM EDT [facility] Blood Venous blood specimen / Unknown Venipuncture / Unknown 04/30/2025 9:38 AM EDT 04/30/2025 10:34 AM EDT us [facility]y [facility] BLOOD ORDERABLES Final Resu lt [facility] [address] [place] [address], [place] [phone] * (ABNORMAL) Hepatitis B surface antigen confirmation (04/30/2025 9:38 AM EDT) [facility] Hep B Surface Ag Confirmation Confirme d(A) Not Confirmed LAB CHEMISTRY METHOD 04/30/2025 5:10 PM EDT [facility] Blood Venous blood specimen / Unknown Venipuncture / Unknown 04/30/2025 9:38 AM EDT 04/30/2025 10:34 AM EDT [facility] BLOOD ORDERABLES Final Resu lt Performing Organization Address [facility]/ZIP Co de Phone Number [facility] [address] [place] [address], [place] [phone] * (ABNORMAL) Hepatitis B surface antigen with reflex to confirmation (04/30/2025 9:38 AM EDT) [facility] Hepatitis B Surface Ag Positive( A) Negative LAB CHEMISTRY METHOD 04/30/2025 3:17 PM EDT [facility] Blood Venous blood specimen / Unknown Venipuncture / Unknown 04/30/2025 9:38 AM EDT 04/30/2025 10:34 AM EDT Narrative [facility] - 04/30/2025 3:17 PM EDT Over the counter supplements containing high doses of biotin may interfere with this assay. If interference is suspected, patients shoud be retested after refraining from biotin supplements for 72 hours. us [facility]y [facility] BLOOD ORDERABLES Final Resu lt [facility] [address] [place] [address], [place] [phone] * AST, ALT, Bilirubin ELR state reportables (04/30/2025 9:38 AM EDT) ALT (SGPT) 27 10 - 60 unit/L LAB CHEMISTRY METHOD 04/30/2025 5:11 PM EDT [facility] AST (SGOT) 22 10 - 42 unit/L LAB CHEMISTRY METHOD 04/30/2025 5:11 PM EDT [facility] Bilirubin, Direct <0.1 0.0 - 0.3 mg/dL LAB CHEMISTRY METHOD 04/30/2025 5:11 PM EDT [facility] Total Bilirubin 0.4 0.0 - 1.4 mg/dL LAB CHEMISTRY METHOD 04/30/2025 5:11 PM EDT [facility] Blood Venous blood specimen / Unknown Venipuncture / Unknown 04/30/2025 9:38 AM EDT 04/30/2025 10:34 AM EDT us Misty [facility] BLOOD ORDERABLES Final Resu lt Performing Organization Address [facility]/ZIP Co de Phone Number [facility] [address] [place] [address], [place] [phone] * (ABNORMAL) Hepatitis B screening panel (04/30/2025 9:38 AM EDT) Pathologist [facility] Hepatitis B Surface Ag Positive(A) Negative LAB CHEMISTRY METHOD 04/30/2025 3:25 PM EDT [facility] Hep B Core Total Ab Positive(A) Negative LAB CHEMISTRY METHOD 04/30/2025 3:25 PM EDT [facility] Hepatitis B Surface Ab Negative Negative LAB CHEMISTRY METHOD 04/30/2025 3:25 PM EDT [facility] Blood Venous blood specimen / Unknown Venipuncture / Unknown 04/30/2025 9:38 AM EDT 04/30/2025 10:34 AM EDT [facility] BLOOD ORDERABLES Final Resu lt [facility] [address] [place] [address], [place] [phone] * Alpha fetoprotein tumor marker (04/30/2025 9:38 AM EDT) [facility] AFP <2.5 0.0 - 8.0 ng/mL LAB CHEMISTRY METHOD 04/30/2025 2:45 PM EDT [facility] Blood Venous blood specimen / Unknown Venipuncture / Unknown 04/30/2025 9:38 AM EDT 04/30/2025 10:34 AM EDT Narrative [facility] - 04/30/2025 2:45 PM EDT The Siemens [employer] Chemiluminescent Immunoassay is used. Results obtained with different assay methods or kits cannot be used interchangeably. Results cannot be interpreted as absolute evidence of the presence or absence of malignant disease. [facility] BLOOD ORDERABLES Final Resu lt [facility] [address] [place] [address], [place] [phone] * Hepatic function panel (04/30/2025 9:38 AM EDT) [facility] Total Protein 7.8 6.0 - 8.0 g/dL LAB CHEMISTRY METHOD 04/30/2025 12:51 PM EDT [facility] Albumin 3.8 3.2 - 5.0 g/dL LAB CHEMISTRY METHOD 04/30/2025 12:51 PM EDT [facility] Total Bilirubin 0.4 0.0 - 1.4 mg/dL LAB CHEMISTRY METHOD 04/30/2025 12:51 PM EDT [facility] Bilirubin, Direct <0.1 0.0 - 0.3 mg/dL LAB CHEMISTRY METHOD 04/30/2025 12:51 PM EDT [facility] Bilirubin, Indirect LAB CHEMISTRY METHOD 04/30/2025 12:51 PM EDT [facility] Comment:Unable to calculate Indirect Bilirubin. ALT (SGPT) 27 10 - 60 unit/L LAB CHEMISTRY METHOD 04/30/2025 12:51 PM EDT [facility] AST (SGOT) 22 10 - 42 unit/L LAB CHEMISTRY METHOD 04/30/2025 12:51 PM EDT [facility] Alkaline Phosphatase 84 42 - 121 unit/L LAB CHEMISTRY METHOD 04/30/2025 12:51 PM EDT [facility] Blood Venous blood specimen / Unknown Venipuncture / Unknown 04/30/2025 9:38 AM EDT 04/30/2025 10:34 AM EDT us [facility]y [facility] BLOOD ORDERABLES Final Resu lt [facility] [address] [place] [address], from Last 3 Months Insurance MEDICAID - [place] Care Teams Chief Legal Officer Relationship Specialty Start Date End Date Pancho Reno MD [address] [place] [address] Dr Shruthi [place] PCP - General Internal Medicine 10/17/24
[2025-05-10 18:49] LABS: INTERNATIONAL NORM RATIO 1.0 (0.9-1.1); Prothrombin Time 11.7 SEC (10.9-12.4)
[2025-05-10 18:52] LABS: Partial Thromboplastin Time 32.8 SEC (26.0-36.8)
[2025-05-10 19:00] LABS: Alanine Aminotransferase 27 U/L (0-40); Albumin Level 4.3 g/dL (3.5-5.0); Alkaline Phosphatase 87 U/L (39-117); Anion Gap 13 (12-20); Aspartate Amino Transferase 47 U/L (5-37); Blood Urea Nitrogen 26 mg/dL (9-16); Calcium 9.0 mg/dL (8.4-10.2); Carbon Dioxide 22 mmol/L (22-29); Chloride 109 mmol/L (96-108); Creatinine Clr Calc Pharmacy 75.8; Estimated Glomerular Filt Rate > 60; Magnesium 2.1 mg/dL (1.6-2.6); Potassium 5.0 mmol/L (3.3-5.1); Sodium 139 mmol/L (135-145); Total Protein 8.6 g/dL (6.5-8.0)
[2025-05-10 19:05] LABS: Troponin-I High Sensitivity 5.4 ng/L (<3.5-35.0)
[2025-05-10] MEDS: Aspirin Enteric Coated 325 MG TABLET.DR PO (19:55)
[2025-05-10 20:10] VITALS: BP 123/78; PULSE 59; RESP 20; TEMP 36.9; O2SAT 99
[2025-05-10 20:30] VITALS: BP 123/78; PULSE 59; RESP 20; TEMP 36.9; O2SAT 99
== END 2025-05-10 20:23 | disposition home or self-care (01) ==
PROVIDERS: Physician Assistant Medical; Emergency Provider Internal Medicine; PCP Internal Medicine
DX: G43.909 Migraine, unspecified, not intractable, without status migrainosus (principal); R53.1 Weakness; R20.0 Anesthesia of skin; I47.19 Other supraventricular tachycardia; I10 Essential (primary) hypertension; Z79.899 Other long term (current) drug therapy
CPT/HCPCS: 36415; 70450; 80048; 80076; 83735; 84484; 85025; 85610; 85730; 93005; 99284

== ENCOUNTER → 2025-05-10 18:25 | Outpatient (BNV) | payer OTHER, SELFPAY | PROVIDERS: Emergency Provider Internal Medicine; PCP Internal Medicine; Visit Provider Internal Medicine Cardiovascular Disease | DX: R53.1 Weakness (principal) | CPT/HCPCS: 93010 ==

== ENCOUNTER → 2025-05-10 18:29 | Outpatient (BNV) | payer OTHER, SELFPAY | PROVIDERS: Emergency Provider Internal Medicine; PCP Internal Medicine; Visit Provider Radiology Diagnostic Radiology | DX: R51.9 Headache, unspecified (principal); H57.02 Anisocoria | CPT/HCPCS: 70450 ==

== ENCOUNTER 2025-07-12 08:01 | Outpatient (AMB) | payer OTHER, SELFPAY ==
--- OUTSIDE RECORDS SUMMARY | 2025-07-12 08:03 | XMS_ITS | Patient Health Record ---
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 PVCs Hepatitis B BPH Gastroesophageal reflux disease Surgical History Surgery Date(Month/Year) Umbilical hernia repair 2018
--- OUTSIDE RECORDS SUMMARY | 2025-07-12 08:03 | XMS_ITS | Encounter Summary ---
Author Organization [facility] Address [address] [place] [address] Phone Care Team Providers Care Powder Coater Name Role Phone Pancho Reno MD Primary Care Provider Encounter Details Date Type Department Care Team (Late st Contact Info) Description 01/01/2022 Procedure Pass [facility] [address], [address] [place] [address] Social History Tobacco Use Types Packs/Day Years Used Date Smoking Tobacco: Never Assessed Sex and Gender Information Value Date Recorded Sex Assigned at Male 12/16/2021 12:31 PM EST Legal Sex Male 6:27 PM EST Gender Identity Male 12/16/2021 12:31 PM EST Sexual Orientation Straight 12/16/2021 12 :31 PM EST documented as of this encounter Plan of Treatment Not on file documented as of this encounter Visit Diagnoses Not on filedocumented in this encounter Care Teams Powder Coater Relationship Specialty Start Date End Date Pancho Reno MD [address] [place] [address] Dr TAVERAS [place]ZZ[place] [address] PCP - General Internal Medicine 12/16/21 documented as of this encounter Additional Source Comments The information contained in this document represents components of the legal health record. It is not the complete legal health record.[facility]
--- OUTSIDE RECORDS SUMMARY | 2025-07-12 08:04 | XMS_ITS | Clinical Summary ---
Author Organization [facility] Address [address] [facility] [address] [place] [phone] Phone Care Team Providers Care Munitions Worker Name Role Phone Pancho Reno MD Primary Care Provider Allergies No known active allergies Medications mexiletine (MEXITIL) 200 MG capsule Take 1 capsule (200 mg total) by mouth 2 (two) times a day with meals. 60 capsule 11 01/01/2022 Active losartan (COZAAR) 25 MG tablet Take 25 mg by mouth daily. 12/20/2021 Active metoprolol tartrate (LOPRESSOR) 50 MG tablet Take 50 mg by mouth 2 (two) times a day. 12/21/2021 Active omeprazole (PRILOSEC) 20 MG capsule Take 20 mg by mouth 2 (two) times a day. 12/01/2021 Active tenofovir (VIREAD) 300 mg tablet Take 300 mg by mouth daily. 10/20/2021 Active Social History Tobacco Use Types Packs/Day Years Used Date Smoking Tobacco: Never Assessed Education Answer Date Recorded Are you interested in more education? Not on nando e 03/13/2023 Are you concerned about learning? Not on file 03/13/2023 No 03/13/2023 No 03/13/2023 Digital Access Answer Date Recorded No 04/03/2023 No 04/03/2023 No 04/03/2023 Reliable internet access at home? Not on file 04/03/2023 Device with a working camera? Not on file Sex and Gender Information Value Date Recorded Sex Assigned at Male 12/16/2021 12:31 PM EST Legal Sex Male 6:27 PM EST Gender Identity Male 12/16/2021 12:31 PM EST Sexual Orientation Straight 12/16/2021 12 :31 PM EST Plan of Treatment Health Maintenance Due Date Last Done Comments Adult Td,Tdap Booster 1967 CREATININE LEVEL 1967 LIPID PANEL 1967 POTASSIUM LEVEL 1967 DEPRESSION SCREENING 1979 SMOKING Hx and SMOKELESS TOB ACCO SCREENING 1980 HEPATITIS C SCREENING 1985 HIV ONE-TIME SCREENING (18-6 5 YEARS) 1985 COLOGUARD 2012 COLONOSCOPY 2012 COLORECTAL CANCER SCREENING 2012 FIT TEST 2012 FOBT 2012 SIGMOIDOSCOPY 2012 VIRTUAL COLONOSCOPY 2012 PNEUMOCOCCAL VACCINES (50+ y ears) (1 of 1 - PCV) 2017 ZOSTER VACCINES (1 of 2) 2017 COVID-19 VACCINE (1 - 2023-2 5 season) 2024 HEPATITIS A VACCINES Aged Out No long er eligible based on patient's age to complete this topic HIB VACCINES Aged Out No longer eligi ble based on patient's age to complete this topic MENINGOCOCCAL VACCINES (ACWY) Aged Out No longer eligible based on patient's age to complete this topic MENINGOCOCCAL VACCINES (B) Aged Out N o longer eligible based on patient's age to complete this topic Medical Devices Not on file Insurance [facility] LIZZETH ROMERO [phone] Care Teams Munitions Worker Relationship Specialty Start Date End Date Pancho Reno MD [address] [place] [address] [place] [address] PCP - General Internal Medicine 12/16/21 Additional Source Comments The information contained in this document represents components of the legal health record. It is not the complete legal health record.[facility]
--- OUTSIDE RECORDS SUMMARY | 2025-07-12 08:04 | XMS_ITS | Clinical Summary ---
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 90 tablet 1 5 Active tenofovir disoproxil fumarate (VIREAD) 300 mg tabletIndicatio ns:Hepatitis B TAKE ONE TABLET BY MOUTH EVERY DAY 90 tablet 1 5 06/18/20 25 Discontinu ed(Reorder ) Encounters Date Type Department Care Team Description 05/08/2025 Telephone Gastroenterology - [address] [phone] Yanely Garza [place] 04/30/2025 Telephone Gastroenterology - [address] [phone] Yanely Garza MA from Last 3 Months Social History Tobacco Use Types Packs/Day Years Used Date Smoking Tobacco: Never Assessed Sex and Gender Information Value Date Recorded Sex Assigned at Male 11/13/2024 10:07 AM EST Legal Sex Male 6:41 AM EST Gender Identity Male 11/13/2024 10:07 AM EST Sexual Orientation Straight 11/13/2024 10 :07 AM EST Plan of Treatment Upcoming Encounters Date Type Department Care Team ([facility] st Contact Info) Description 09/03/2025 10:20 AM EDT Office Visit Gastroenterology - [address] [place] [phone] Edson Mcknight MD [facility] [place] [address] Health Maintenance Due Date Last Done Comments COVID-19 Vaccine (#1) 1972 DTaP,Tdap,and Td Vaccines (1 - Tdap) 1986 Hepatitis B Vaccines (1 of 3 - 19+ 3-dose series) 1986 Pneumococcal Vaccine: 50+ Years (1 of 2 - PCV) 1986 Zoster Vaccines (1 of 2) 2017 Cholesterol Screening (Lipid Panel) 10/10/2022 Colorectal Cancer Screening: Colonoscopy 10/10/2022 HIV Screening 10/10/2022 Hepatitis C Screening 10/10/2022 Social Influencers of Health Screening 10/10/2022 Depression Screening 11/07/2024 Influenza Vaccine (#1) 2025 7, 08/31/2005 HIB [...] B Core IgM 04/30/2025 5:44 PM EDT [facility] Hepatitis A Antibody IgM 04/30/2025 5:44 PM EDT [facility] Hep B Surface Ag Confirmation 04/30/2025 5:44 PM EDT [facility] Blood Venous blood specimen / Unknown Venipuncture / Unknown 04/30/2025 9:38 AM EDT 04/30/2025 10:34 AM EDT Misty [facility] LAB BLOOD ORDERABLES Final Resu lt Performing Organization Address [facility]/ZIP Co de Phone Number [facility] [address] [place] [address], [place] [phone] * (ABNORMAL) Hepatitis B surface antigen confirmation (04/30/2025 9:38 AM EDT) Pathologist [facility] Hep B Surface Ag Confirmation Confirme d(A) Not Confirmed LAB CHEMISTRY METHOD 04/30/2025 5:10 PM EDT [facility] Blood Venous blood specimen / Unknown Venipuncture / Unknown 04/30/2025 9:38 AM EDT 04/30/2025 10:34 AM EDT Misty [facility] LAB BLOOD ORDERABLES Final Resu lt Performing Organization Address [facility] de Phone Number [facility] [address] [place] [address], [place] [phone] * (ABNORMAL) Hepatitis B surface antigen with reflex to confirmation (04/30/2025 9:38 AM EDT) Pathologist [facility] Hepatitis B Surface Ag Positive( A) Negative LAB CHEMISTRY METHOD 04/30/2025 3:17 PM EDT [facility] Blood Venous blood specimen / Unknown Venipuncture / Unknown 04/30/2025 9:38 AM EDT 04/30/2025 10:34 AM EDT Narrative [facility] - 04/30/2025 3:17 PM EDT Over the counter supplements containing high doses of biotin may interfere with this assay. If interference is suspected, patients shoud be retested after refraining from biotin supplements for 72 hours. Misty [facility] LAB BLOOD ORDERABLES Final Resu lt Performing Organization Address City/[facility]/ZIP Co de Phone Number [facility] [address] [place] [address], [place] [phone] * AST, ALT, Bilirubin ELR state reportables (04/30/2025 9:38 AM EDT) Pathologist [facility] ALT (SGPT) 27 10 - 60 unit/L LAB CHEMISTRY METHOD 04/30/2025 5:11 PM EDT [facility] AST (SGOT) 22 10 - 42 unit/L LAB CHEMISTRY METHOD 04/30/2025 5:11 PM EDT [facility] Bilirubin, Direct <0.1 0.0 - 0.3 mg/dL LAB CHEMISTRY METHOD 04/30/2025 5:11 PM EDT [facility] Total Bilirubin 0.4 0.0 - 1.4 mg/dL LAB CHEMISTRY METHOD 04/30/2025 5:11 PM EDT [facility] Blood Venous blood specimen / Unknown Venipuncture / Unknown 04/30/2025 9:38 AM EDT 04/30/2025 10:34 AM EDT Misty [facility] LAB BLOOD ORDERABLES Final Resu lt Performing Organization Address City/[facility]/ZIP Co de Phone Number [facility] [address] [place] [address], [place] [phone] * (ABNORMAL) Hepatitis B screening panel (04/30/2025 9:38 AM EDT) Pathologist [facility] Hepatitis B Surface Ag Positive(A) Negative LAB CHEMISTRY METHOD 04/30/2025 3:25 PM EDT [facility] Hep B Core Total Ab Positive(A) Negative LAB CHEMISTRY METHOD 04/30/2025 3:25 PM EDT [facility] Hepatitis B Surface Ab Negative Negative LAB CHEMISTRY METHOD 04/30/2025 3:25 PM EDT [facility] Blood Venous blood specimen / Unknown Venipuncture / Unknown 04/30/2025 9:38 AM EDT 04/30/2025 10:34 AM EDT Misty Montes [place] LAB BLOOD ORDERABLES Final Resu lt Performing Organization Address [facility] de Phone Number [facility] [address] [place] [address], * Alpha fetoprotein tumor marker (04/30/2025 9:38 AM EDT) [facility] AFP <2.5 0.0 - 8.0 ng/mL LAB CHEMISTRY METHOD 04/30/2025 2:45 PM EDT [facility] Blood Venous blood specimen / Unknown Venipuncture / Unknown 04/30/2025 9:38 AM EDT 04/30/2025 10:34 AM EDT Narrative [facility] - 04/30/2025 2:45 PM EDT The Siemens Advia Centaur Chemiluminescent Immunoassay is used. Results obtained with different assay methods or kits cannot be used interchangeably. Results cannot be interpreted as absolute evidence of the presence or absence of malignant disease. [facility] BLOOD ORDERABLES Final Resu lt Performing Organization Address [facility] de Phone Number [facility] [address] [place] [address], * Hepatic function panel (04/30/2025 9:38 AM EDT) [facility] Total Protein 7.8 6.0 - 8.0 g/dL LAB CHEMISTRY METHOD 04/30/2025 12:51 PM EDT [facility] Albumin 3.8 3.2 - 5.0 g/dL LAB CHEMISTRY METHOD 04/30/2025 12:51 PM EDT [facility] Total Bilirubin 0.4 0.0 - 1.4 mg/dL LAB CHEMISTRY METHOD 04/30/2025 12:51 PM EDT [facility] Bilirubin, Direct <0.1 0.0 - 0.3 mg/dL LAB CHEMISTRY METHOD 04/30/2025 12:51 PM EDT [facility] Bilirubin, Indirect LAB CHEMISTRY METHOD 04/30/2025 12:51 PM EDT [facility] Comment:Unable to calculate Indirect Bilirubin. ALT (SGPT) 27 10 - 60 unit/L LAB CHEMISTRY METHOD 04/30/2025 12:51 PM EDT [facility] AST (SGOT) 22 10 - 42 unit/L LAB CHEMISTRY METHOD 04/30/2025 12:51 PM EDT [facility] Alkaline Phosphatase 84 42 - 121 unit/L LAB CHEMISTRY METHOD 04/30/2025 12:51 PM EDT [facility] Blood Venous blood specimen / Unknown Venipuncture / Unknown 04/30/2025 9:38 AM EDT 04/30/2025 10:34 AM EDT us Misty [facility]IS LAB BLOOD ORDERABLES Final Resu lt [facility] [address] [place] [address], from Last 3 Months Insurance MEDICAID - [place] Care Teams Rugby League Footballer Relationship Specialty Start Date End Date Pancho Reno MD [address] [place] [address] Dr Shruthi MA PCP - General Internal Medicine 10/17/24
--- NOTE | 2025-07-12 08:12 | MHC.OFFVIS ---
Vital Signs 07/12/25 08:17 Height 5 ft 9 in Weight 193 lb BMI 28.5 BP 111/69 Blood Pressure Location Lt brachial Position Sitting Pulse 59 Pulse Oximetry (%) 98 Oxygen Delivery Method Room Air Intake Visit Reasons: [facility] Screening Intake Note: Patient new consult for 1st pre Colonoscopy screening. Patient denies any GI issue for today visit. Truck And Transport Mechanic Required: No Truck And Transport Mechanic Services: Truck And Transport Mechanic Offered & Declined Accompanied by: Self / Same As Patient Allergies No Known Allergies Allergy (Verified 07/12/25 08:11) Medication List - Last Reconciled 07/12/25 by hCerry Robertson CNP aspirin 81 mg PO DAILY cetirizine (Zyrtec) 10 mg PO DAILY PRN losartan 25 mg PO DAILY metoprolol succinate ER 50 mg PO DAILY mexiletine 200 mg PO BID 90 days omeprazole 20 mg PO BID tenofovir disoproxil fumarate (Viread) 300 mg PO DAILY terazosin 5 mg PO BEDTIME 30 days HPI HPI [facility] Screening: Details: Patient is a 59-year-old male with PMH of hyperlipidemia, hypertension and arthritis. Referred by PCP for pre colonoscopy screening. Patient reports no gastrointestinal symptoms such as diarrhea, constipation, or blood in stools. No abdominal pain currently, but a history of pain in the mid-abdomen improved with omeprazole. The patient has been taking omeprazole 40 mg daily (two 20mg in AM) for over five years with noted reflux symptom relief. Patient expressed concern about sedation safety due to irregular heart rhythm and reports past recommendations against sedation for procedures. Has a cardiac history managed with mexiletine and metoprolol. Prefers stool-based screening (Cologuard) instead of colonoscopy due to sedation concerns, despite understanding its limitations in definitively ruling out colorectal cancer. Also has chronic hepatitis B, prescribed Viread and managed by GI at [facility], with ongoing specialist follow-up. No other comorbidities reported impacting GI management. Patient denies: fever/chills, n/v, appetite changes, regurgitation, dysphasia, unintentional wt loss, ab pain or melena/hematochezia. Social hx: -denies ETOH use -denies recreational drug use - non-smoker - family hx as below -denies personal hx of [place] [facility] Medical History (Updated 07/12/25 @ 08:53 by Cherry Robertson CNP) Hepatitis B Acid reflux Colon cancer screening Tinnitus High cholesterol HTN (hypertension) Arthritis Surgical History (Updated 07/12/25 @ 08:17 by Catherine Tirado) History of hernia surgery Family History Mother CAD (coronary artery disease) Father No problems noted. Social History Housing: Condominium Alcohol intake: never Patient Tobacco Use Status: Never used Tobacco e-Cigarette/Vaping Use: Never Used service: No Current occupational status: unemployed Cognitive needs: No Hearing needs: No Vision needs: Yes (reading glasses) Review of Systems Const Reports as per HPI ENT Reports as per HPI Card Reports as per HPI Resp Reports as per HPI GI Reports as per HPI Reports as per HPI Physical Exam Const General: healthy appearing, no acute distress and well developed Nutritional Appearance: average body habitus Orientation/consciousness: patient oriented x3 HEENT Head: Yes normal to inspection, Yes normocephalic and Yes atraumatic Face and sinus: Yes normal facial exam Eyes General: appearance normal, both eyes and all related structures Neck Neck: Yes normal visual inspection Resp Effort & Inspection: normal respiratory effort, able to speak in complete sentences, no tracheal deviation and symmetric chest movement Neuro General: patient oriented x3 Gait exam (Neuro): Normal gait present Psych Appearance: grossly normal Mental Status: mental status grossly normal Speech and movement: Normal speech and movement present Affect: normal affect Attitude: cooperative Thought process: Normal thought process present Thought content: Normal thought content present Insight: Good insight present (Psych) Judgement: Good judgement present (Psych) Assessment & Plan Assessment & Plan (1) Colon cancer screening: Code(s): Z12.11 - Encounter for screening for malignant neoplasm of colon Category: Medical Plan: Patient at average risk, referred for CRC screening. Prefers non-invasive stool-based testing (Cologuard) due to concern for sedation risk with cardiac arrhythmia and prior provider recommendations. Additional Testing: Cologuard ordered; instructions for home collection and mailing provided. If positive, will require colonoscopy with prior cardiac clearance. Medication Management: Continue current regimen (omeprazole, baby aspirin, mexiletine, metoprolol). Lifestyle Recommendations: -Education provided on CRC, including that colonoscopy is the gold standard for detection and prevention, with the ability to directly visualize and remove polyps. -Discussed stool-based options: Cologuard (DNA-FIT test, good for 3 years if negative) and FIT (good for 1 year if negative). -Advised that stool-based testing is less sensitive than colonoscopy and cannot definitively rule out cancer; if positive, colonoscopy is required. -Patient instructed on test process and importance of timely return of sample. Follow-Up: If Cologuard positive, reassess and arrange cardiac clearance for colonoscopy. If negative, repeat stool testing in 3 years with PCP. (2) Acid reflux: Code(s): K21.9 - Gastro-esophageal reflux disease without esophagitis Category: Medical Qualifiers: Esophagitis presence: esophagitis presence not specified Qualified Code(s): K21.9 - Gastro-esophageal reflux disease without esophagitis Plan: Longstanding reflux, well controlled on omeprazole. Additional Testing: None indicated at this time. Medication Management: Continue omeprazole 40 mg daily (20 mg BID). Lifestyle Recommendations: Continue current management. Follow-Up: PRN for symptom recurrence or change (3) Hepatitis B: Code(s): B19.10 - Unspecified viral hepatitis B without hepatic coma Category: Medical Qualifiers: Hepatic coma status: without hepatic coma Hepatitis delta agent presence: without delta-agent Viral hepatitis chronicity: chronic Qualified Code(s): B18.1 - Chronic viral hepatitis B without delta-agent Plan: Known chronic hepatitis B, under specialist care. Additional Testing: Ongoing management by [facility] GI provider. Medication Management: As directed by outside specialist. Lifestyle Recommendations: Continue follow-up with outside GI provider. Follow-Up: Continue with established GI care Plan Follow-up as needed based on Cologuard results or sooner as needed Time: I spent a total of 30 minutes on the date of encounter which includes: Preparing to see the patient (reviewed previous documentation, test results and medical history) Performing a medically appropriate exam and/or evaluation Ordering medications, tests, and procedures Documenting clinical information in the health record Orders: Orders AMB Cologuard Today Z12.11 - Encounter for screening for malignant neoplasm of colon Coding Level of Care Code New Pt New Pt Level 3 (75677) Patient Type New Diagnoses Colon cancer screening Z12.11 Gastroesophageal reflux disease, unspecified whether esophagitis present K21.9 Esophagitis presence: esophagitis presence not specified Chronic viral hepatitis B without delta agent and without coma B18.1 Hepatic coma status: without hepatic coma Hepatitis delta agent presence: without delta-agent Viral hepatitis chronicity: chronic
[2025-07-12 08:17] VITALS: BP 111/69; PULSE 59; O2SAT 98; BMI 28.5
== END 2025-07-12 08:38 | disposition home or self-care (01) ==
LOC: HO.HGI 08:01
PROVIDERS: PCP Internal Medicine; Visit Provider Nurse Practitioner Family
DX: Z01.818 Encounter for other preprocedural examination (principal); Z12.11 Encounter for screening for malignant neoplasm of colon; B18.1 Chronic viral hepatitis B without delta-agent; K21.9 Gastro-esophageal reflux disease without esophagitis
CPT/HCPCS: 99203

== ENCOUNTER → 2025-07-12 08:01 | Outpatient (BNVA) | payer OTHER, SELFPAY | PROVIDERS: PCP Internal Medicine; Visit Provider Nurse Practitioner Family | DX: Z01.818 Encounter for other preprocedural examination (principal); K21.9 Gastro-esophageal reflux disease without esophagitis; B18.1 Chronic viral hepatitis B without delta-agent | CPT/HCPCS: 99202 ==

== ENCOUNTER 2025-09-16 09:58 | Outpatient (AMB) | payer OTHER, SELFPAY ==
[2025-09-16 10:01] VITALS: BP 118/71; PULSE 64; TEMP 37.3; O2SAT 96; BMI 29.7
--- NOTE | 2025-09-16 10:01 | MHC.PC.OV ---
Vital Signs 09/16/25 10:01 Height 5 ft 9 in Weight 201 lb BMI 29.7 BP 118/71 Blood Pressure Location Lt brachial Position Sitting Pulse 64 Pulse Source Pulse Oximeter Temp 99.1 F Temp Source Temporal Artery Scan Pulse Oximetry (%) 96 Oxygen Delivery Method Room Air Intake Visit Reasons: Routine 6 Month F/U Dr Santiago Hand Washer Required: No Accompanied by: Self / Same As Patient Allergies No Known Allergies Allergy (Verified 09/16/25 10:04) Medication List - Last Reconciled 09/16/25 by STEVEN Gibbs aspirin 81 mg PO DAILY cetirizine (Zyrtec) 10 mg PO DAILY PRN losartan 25 mg PO DAILY metoprolol succinate ER 50 mg PO DAILY mexiletine 200 mg PO BID 90 days omeprazole 20 mg PO BID tenofovir disoproxil fumarate (Viread) 300 mg PO DAILY Tobacco use date assessed: 09/16/25 Dental Screening Dental Screen Date: 09/16/25 Did you have a dental visit in the last 12 months?: No Did you have a dental problem in the last 6 months where you did not have access to dental care?: No HPI HPI Comments History of Present Illness Details The patient is a 59-year-old male with HTN, Tinnitus, SVT, RA, chronic hepatitis B, AR and GERD presenting for establishment of care and chronic disease management. The patient has a history of supraventricular tachycardia, for which he is followed by cardiology and takes mexiletine for heart rate control. He also has hypertension, managed with losartan and metoprolol. He is not currently taking any medication for cholesterol. His BP today was 118/71. He has a history of rheumatoid arthritis and is under the care of a cloud subject matter expert, at the arthritis center, receiving Remicade for treatment. The patient reports self-administering a honeybee sting three days ago as a therapy for his arthritis, which resulted in swelling of right hand. The patient is followed by a king maker, Edson Mcknight for hepatitis B, with his last appointment a few weeks ago. A referral for a colonoscopy was previously made, but the patient declined due to concerns about being put to sleep given his heart condition. He was supposed to receive a Cologuard kit but has not yet. Other history includes tinnitus, for which he has not yet seen an ENT specialist. He takes cetirizine for allergies and omeprazole for his stomach. His last blood work was in May and was reported as good. He has an eye exam scheduled for October. Medical History: - Supraventricular tachycardia - Hypertension - Hepatitis B - Rheumatoid arthritis - Tinnitus - Allergies - GERD Medications: - Mexiletine for heart rate control - Losartan for blood pressure - Metoprolol for blood pressure - Remicade for rheumatoid arthritis - Cetirizine for allergies - Omeprazole for stomach issues - Reports not taking any medication for cholesterol Patient was informed and verbally consented to the use of an ambient scribe for clinic note documentation during this visit. [facility] Medical History (Updated 09/16/25 @ 13:38 by STEVEN Gibbs) Acid reflux Arthritis Colon cancer screening Hepatitis B High cholesterol HTN (hypertension) Rheumatoid arthritis Tinnitus Surgical History History of hernia surgery Family History (Updated 09/16/25 @ 10:14 by Irena Byrd MA) Mother CAD (coronary artery disease) Father No problems noted. Social History Housing: Condominium Alcohol intake: never Patient Tobacco Use Status: Never used Tobacco e-Cigarette/Vaping Use: Never Used service: No Current occupational status: unemployed Cognitive needs: No Hearing needs: No Vision needs: Yes (reading glasses) Questionnaire PHQ-9 Over the last 2 weeks, how often have you been bothered by any of the following problems? 1. Little interest or pleasure in doing things: not at all 2. Feeling down, depressed, or hopeless: not at all 3. Trouble falling or staying asleep, or sleeping too much: not at all 4. Feeling tired or having little energy: not at all 5. Poor appetite or overeating: not at all 6. Feeling bad about yourself - or that you are a failure or have let yourself or your family down: not at all 7. Trouble concentrating on things, such as reading the newspaper or watching television: not at all 8. Moving or speaking so slowly that other people could have noticed. Or the opposite - being so fidgety or restless that you have been moving around a lot more than usual: not at all 9. Thoughts that you would be better off or of hurting yourself in some way: not at all Total score: 0 Depression Screening Interpretation: Negative Depression Screening Done: Yes Source: Developed by Drs. Carlos Clark, Jeni Marshall, Marlo Carpenter and colleagues, with an educational kvng from [employer]. Thrive Questionnaire Date Thrive assessed: 09/16/25 I am a: Patient Within the past 12 months, did the food you bought not last and you didn't have the money to get more?: Never true Within the past 12 months, did you worry whether your food would run out before you got money to buy more?: Never true Do you have trouble paying for medicines?: No Do you have trouble getting transportation to medical appointments?: No Do you have trouble paying your heating and electricity bill?: No Do you have trouble taking care of your child, family member or friend?: No Do you have trouble with day-to-day activities such as bathing, preparing meals, shopping, managing finances, etc.?: No Are you currently unemployed and looking for a job?: No Are you interested in more education?: No THRIVE Score: 0 AUDIT C Alcohol Use Questionnaire (AUDIT-C) 1. How often do you have a drink containing alcohol?: Never 3. How often do you have six or more drinks on one occasion?: Never Total Score: 0 AUGUSTIN-7 AMB Questionnaire AUGUSTIN-7 Date AUGUSTIN - 7 assessed: 09/16/25 Feeling nervous, anxious, or on edge: 0 = Not at all Not being able to stop or control worryin = Not at all Worrying too much about different things: 0 = Not at all Trouble relaxin = Not at all Being so restless that it is hard to sit still: 0 = Not at all Becoming easily annoyed or irritable: 0 = Not at all Feeling afraid as if something awful might happen: 0 = Not at all Total AUGUSTIN-7 score (0-4 normal; 5-9 mild; 10-14 moderate; 15-21 severe): 0 Source: Developed by Drs. Carlos Clark, Marlo Brown and colleagues, with an educational kvng from [employer]. Review of Systems Narrative - Ears: Reports tinnitus. - Cardiovascular: Reports occasional left-sided chest pain, which he associates with gas. Denies shortness of breath. - Gastrointestinal: Denies constipation, diarrhea, or heartburn. - Musculoskeletal: Reports diagnosis of rheumatoid arthritis. Reports swelling from a recent self-inflicted honeybee sting. Physical exam (Primary Care) Vital Signs: Last Vital Signs Temp 99.1 F 09/16/25 10:01 Pulse 64 09/16/25 10:01 BP 118/71 09/16/25 10:01 Pulse Ox 96 09/16/25 10:01 Oxygen Delivery Method Room Air 09/16/25 10:01 BMI result Body Mass Index 29.7 GENERAL Well developed, overweight, in no apparent distress HEENT Head-Normocephalic Eyes- PERRLA, EOMI, Conjuctiva clear, lids WNL Ears- Canals clear, TMs WNL Mouth/Throat-No lesions, no erythema, no exudate Neck- Supple, No lymphadenopathy, thyroid WNL RESPIRATORY Normal I:E, Clear to auscultation CARDIOVASCULAR Regular, rate and rhythm, No murmurs or rubs GASTROINTESTINAL Soft, nontender, normal bowel sounds, no masses MUSCULOSKELETAL Back- nontender Swelling of right hand NEUROLOGICAL Gait normal PSYCHIATRIC Oriented to person, place and time Mood and affect WNL Appearance WNL Speech WNL Thought processes WNL Tobacco/Smoking Status: Tobacco use Status Tobacco use date assessed 09/16/25 09/16/25 10:05 Patient Tobacco Use Status Never used Tobacco 09/16/25 10:03 e-Cigarette/Vaping Use Never Used 09/16/25 10:03 PHQ-9: PHQ-9 Score PHQ-9: Total score 0 09/16/25 10:24 Depression Screening Interpretation: Negative Thrive Assessment: Date of Thrive Assessment Date Thrive assessed 09/16/25 09/16/25 10:05 Coding Level of Care Code Established Pt Tele Est Pt Level 4 (08601) Established Pt Complex EM visit Add On G2211 Patient Type Established Diagnoses HTN (hypertension) I10 SVT (supraventricular tachycardia) I47.1 Tinnitus H93.19 Rheumatoid arthritis M06.9 Chronic viral hepatitis B without delta agent and without coma B18.1 Viral hepatitis chronicity: chronic Hepatic coma status: without hepatic coma Hepatitis delta agent presence: without delta-agent Colon cancer screening Z12.11 Time Spent (min) 35 Comment Time spent on chart review, medication reconciliation, H&P, Patient education, Orders. Assessment & Plan Assessment & Plan (1) HTN (hypertension): Comment: BP today was 118/71 Code(s): I10 - Essential (primary) hypertension Category: Medical Plan: Controlled on Losartan 25m and Metoprolol 50mg. Patient will continue current medications. Will monitor. Patient will follow up in 3 months. (2) SVT (supraventricular tachycardia): Comment: On Mexiletine Code(s): I47.1 - Supraventricular tachycardia Category: Medical Plan: The patient is followed by cardiology for this condition and is on mexiletine to help control his heart rate. 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 He will continue his current medication and follow-up as planned with his specialist. (3) Tinnitus: Code(s): H93.19 - Tinnitus, unspecified ear Category: Medical Plan: The patient reports ongoing ringing in his ears. A new referral will be sent to an ear, nose, and throat (ENT) specialist for further evaluation. (4) Rheumatoid arthritis: Code(s): M06.9 - Rheumatoid arthritis, unspecified Category: Medical Plan: This condition is managed by a cloud subject matter expert with Remicade. The patient will continue his current treatment plan and follow-up with his specialist. (5) Hepatitis B: Comment: Followed by Edson Mcknight Code(s): B19.10 - Unspecified viral hepatitis B without hepatic coma Category: Medical Qualifiers: Viral hepatitis chronicity: chronic Hepatic coma status: without hepatic coma Hepatitis delta agent presence: without delta-agent Qualified Code(s): B18.1 - Chronic viral hepatitis B without delta-agent Plan: The patient is being followed by a king maker for this condition and had an appointment a few weeks ago. He will continue to follow up with his specialist as advised. (6) Colon cancer screening: Code(s): Z12.11 - Encounter for screening for malignant neoplasm of colon Category: Medical Plan: The patient is due for screening but declined a colonoscopy due to concerns about undergoing anesthesia with his heart condition. As an alternative, a new order will be placed for a Cologuard test. Plan I reviewed the patient's multiple chronic conditions, noting he is under the care of several specialists for his SVT, hepatitis B, and rheumatoid arthritis. We discussed his options for colon cancer screening, and due to his concerns about anesthesia for a colonoscopy related to his heart condition, we agreed to proceed with an order for Cologuard instead. I also addressed his complaint of tinnitus and informed him that I would place a new referral to an ENT specialist, cautioning that there might be a wait for an appointment. I confirmed that no lab work is currently needed as his results from May were normal. I advised him to request any prescription refills through his pharmacy and to schedule a follow-up appointment in three months. Orders: Referrals Cologuard Test Z12.11 - Encounter for screening for malignant neoplasm of colon Ear/Nose/Throat Referral H93.19 - Tinnitus, unspecified ear Patient Instructions: - Continue taking all of your current medications as prescribed by your doctors. - Contact your pharmacy when you need medication refills. - We will send a new referral for you to see an ear, nose, and throat (ENT) doctor about the ringing in your ears. - We will place an order for a Cologuard kit, which is a stool test for colon cancer screening, to be sent to your home. - Remember to go to your scheduled eye exam in October. - You have an appointment with your heart doctor next week. - Please schedule a follow-up appointment at this office in three months.
--- OUTSIDE RECORDS SUMMARY | 2025-09-16 11:28 | XMS_ITS | Encounter Summary ---
Author Organization [facility] Address [address] [place] [address] Phone Care Team Providers Care Welder Explosion Name Role Phone Pancho Reno MD Primary Care Provider Encounter Details Date Type Department Care Team (Late st Contact Info) Description 01/01/2022 Procedure Pass [facility] Holter [facility] [address], [address], [address] [place] [address] Social History Tobacco Use Types Packs/Day Years [...] on filedocumented in this encounter Care Teams Welder Explosion Relationship Specialty Start Date End Date Pancho Reno MD [address] [place] [address] Dr TAVERAS LIZZETH [place] [id number] PCP - General Internal Medicine 12/16/21 documented as of this encounter Additional Source Comments The information contained in this document represents components of the legal health record. It is not the complete legal health record.[facility]
--- OUTSIDE RECORDS SUMMARY | 2025-09-16 11:28 | XMS_ITS | Clinical Summary ---
Author Organization [facility] Address [address] [place] [phone] Phone Care Team Providers Care Relaster Name Role Phone Pancho Reno MD Primary Care Provider [phone] Allergies No known active allergies Medications omeprazole (PriLOSEC) [address] capsule Take 1 capsule (20 mg total) by mouth 2 (two) times a day. Active metoprolol tartrate (LOPRESSOR) 25 mg tablet Take 1 tablet (25 mg total) by mouth 2 (two) times a day. 0 Active losartan (COZAAR) 25 mg tablet Take 1 tablet (25 mg total) by mouth 1 (one) time each day. Active aspirin 81 mg EC tablet Take 1 tablet (81 mg total) by mouth 1 (one) time each day. 5 Active mexiletine (MEXITIL) 200 mg capsule Take 1 capsule (200 mg total) by mouth 2 (two) times a day. Active tenofovir disoproxil fumarate (VIREAD) 300 mg tabletIndicatio ns:Hepatitis B Take 1 tablet (300 mg total) by mouth 1 (one) time each day. 90 tablet 3 5 09/03/20 26 Active tenofovir disoproxil fumarate (VIREAD) 300 mg tabletIndicatio ns:Hepatitis B Take 1 tablet (300 mg total) by mouth 1 (one) time each day. 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 Gastroesophageal reflux disease without esophagi tis 09/03/2025 Hypertension 09/03/2025 Encounters Date Type Department Care Team Description 09/03/2025 10:20 AM EDT Office Visit Gastroenterology - [address] [facility] [address] [place] [phone] Edson Mcknight MD Hepatitis B infection without delta agent without hepatic coma, unspecified chronicity (Primary Dx) from Last 3 Months Surgical History Surgery Date Site/Laterality Comments COLONOSCOPY HERNIA MESH REMOVAL CARDIAC SURGERY Medical History Medical History Date Comments Hypertension Heart beat abnormality GERD (gastroesophageal reflux disease) Arthritis Hernia, internal Liver disease Hepatitis B Social History Tobacco Use Types Packs/Day Years Used Date Smoking Tobacco: Never Smokeless Tobacco: Never Tobacco Cessation:Counseling Given: Not Answered Alcohol Use Standard Drinks/Week Comments Never 0 (1 standard drink = 0.6 oz pur e alcohol) Sex and Gender Information Value Date Recorded Sex Assigned at Male 11/13/2024 10:07 AM EST Legal Sex Male 6:41 AM EST Gender Identity Male 11/13/2024 10:07 AM EST Sexual Orientation Straight 11/13/2024 10 :07 AM EST Obstetrics History Last Filed Vital Signs Vital Sign Reading Time Taken Comments Blood Pressure - - Pulse - - Temperature - - Respiratory Rate - - Oxygen Saturation - - Inhaled Oxygen Concentration - - Weight 89.8 kg (198 lb) 09/03/2025 10:30 AM EDT Height 175.3 cm (5' 9 ) 09/03/2025 10:30 AM EDT Body Mass Index 29.24 09/03/2025 10:30 AM EDT Plan of Treatment Upcoming Encounters Date Type Department Care Team (Late st Contact Info) Description 10/07/2025 10:00 AM EST Appointment [facility] Ultrasound [address] [place] [phone] Health Maintenance Due Date Last Done Comments Colorectal Cancer Screening: Colonoscopy 1967 DTaP,Tdap,and Td Vaccines (1 - Tdap) 1986 Hepatitis B Vaccines (1 of 3 - 19+ 3-dose series) 1986 Pneumococcal Vaccine: 50+ Years (1 of 2 - PCV) 1986 Zoster Vaccines (1 of 2) 2017 Cholesterol Screening (Lipid Panel) 10/10/2022 HIV Screening 10/10/2022 Hepatitis C Screening 10/10/2022 Social Influencers of Health Screening 10/10/2022 Depression Screening 11/07/2024 COVID-19 Vaccine ( - 2023-2 5 season) 2025 Influenza Vaccine (#1) 2025 7, 08/31/2005 Hypertension/CHF/CAD Annual BMP Blood Test 11/13/2025 11/13/2024 RSV Immunization Adult Patients (1 - 1-dose 75+ series) 2042 HIB Vaccines Aged Out No longer eligi [...] Procedure Name Priority Date/Time Associated Diagnosis Comments COMPREHENSIVE METABOLIC PANEL Routine 11/13/2024 10:50 AM EST Type B viral hepatitis from Last 3 Months or Most Recently Relevant to Health Maintenance Results * (ABNORMAL) Comprehensive metabolic panel (11/13/2024 10:50 AM EST) Pathologist [facility] Sodium 136 133 - 145 mmol/L LAB CHEMISTRY METHOD 11/13/2024 2:08 PM EST [facility] Potassium 3.7 3.5 - 5.5 mmol/L LAB CHEMISTRY METHOD 11/13/2024 2:08 PM EST [facility] Chloride 106 96 - 110 mmol/L LAB CHEMISTRY METHOD 11/13/2024 2:08 PM EST [facility] CO2 24 21 - 32 mmol/L LAB CHEMISTRY METHOD 11/13/2024 2:08 PM [facility] Anion Gap 6 3 - 11 LAB CHEMISTRY METHOD 11/13/2024 2:08 PM [facility] Glucose 87 70 - 100 mg/dL LAB CHEMISTRY METHOD 11/13/2024 2:08 PM [facility] BUN 27(H) 5 - 25 mg/dL LAB CHEMISTRY METHOD 11/13/2024 2:08 PM [facility] Creatinine 1.37(H) 0.70 - 1.30 mg/dL LAB CHEMISTRY METHOD 11/13/2024 2:08 PM [facility] eGFR 60 >=60 mL/min/1. 73m2 LAB CHEMISTRY METHOD 11/13/2024 2:08 PM [facility] Comment:Calculation based on the Chronic Kidney Disease Epidemiology Collaboration (CKD-EPI) equation refit without adjustment for race. BUN/Creatinine Ratio 19.7 LAB CHEMISTRY METHOD 11/13/2024 2:08 PM [facility] Calcium 9.0 8.5 - 10.5 mg/dL LAB CHEMISTRY METHOD 11/13/2024 2:08 PM [facility] AST (SGOT) 23 10 - 42 unit/L LAB CHEMISTRY METHOD 11/13/2024 2:08 PM [facility] ALT (SGPT) 26 10 - 60 unit/L LAB CHEMISTRY METHOD 11/13/2024 2:08 PM [facility] Alkaline Phosphatase 78 42 - 121 unit/L LAB CHEMISTRY METHOD 11/13/2024 2:08 PM [facility] Total Protein 7.8 6.0 - 8.0 g/dL LAB CHEMISTRY METHOD 11/13/2024 2:08 PM [facility] Albumin 3.9 3.2 - 5.0 g/dL LAB CHEMISTRY METHOD 11/13/2024 2:08 PM [facility] Total Bilirubin 0.5 0.0 - 1.4 mg/dL LAB CHEMISTRY METHOD 11/13/2024 2:08 PM [facility] ([facility]) [facility] Blood Venous blood specimen / Unknown Venipuncture / Unknown 11/13/2024 10:50 AM EST 11/13/2024 12:18 PM EST us Edson Mcknight MD LAB BLOOD ORDERABLES Final Result [facility] ([facility]) [facility] [address] [place] [address], from Last 3 Months or Most Recently Relevant to Health Maintenance Insurance MEDICAID - [place] Care Teams Relaster Relationship Specialty Start Date End Date Pancho Reno MD [address] [place] [address] Dr Hawkins [place] PCP - General Internal Medicine 10/17/24
--- OUTSIDE RECORDS SUMMARY | 2025-09-16 11:28 | XMS_ITS | Clinical Summary ---
Author Organization [facility] Address [address] [place] [phone] Phone Care Team Providers Care Time Broker Name Role Phone Pancho Reno MD Primary [...] DEPRESSION SCREENING 1979 SMOKING Hx and SMOKELESS TOBACCO SCREENING 1980 HEPATITIS C SCREENING 1985 HIV ONE-TIME SCREENING (18-6 5 YEARS) 1985 COLOGUARD 2012 COLONOSCOPY 2012 COLORECTAL CANCER SCREENING 2012 FIT TEST 2012 FOBT 2012 SIGMOIDOSCOPY 2012 VIRTUAL COLONOSCOPY 2012 PNEUMOCOCCAL VACCINES (50+ years) (1 of 1 - PCV) 2017 ZOSTER VACCINES (1 of 2) 2017 INFLUENZA VACCINE (#1) 2025 7, 08/31/2005 COVID-19 VACCINE (1 - 2024-2 6 season) 2025 RSV VACCINE (1 - 1-dose 75+ series) 2042 HEPATITIS A VACCINES Aged Out No long er eligible based on patient's age to complete this topic HIB VACCINES Aged Out No longer eligi ble based on patient's age to complete this topic IPV VACCINES Aged Out No longer eligi ble based on patient's age to complete this topic MENINGOCOCCAL VACCINES (ACWY) Aged Out No longer eligible based on patient's age to complete this topic MENINGOCOCCAL VACCINES (B) Aged Out N o longer eligible based on patient's age to complete this topic Medical Devices Not on file Insurance [facility] Care Teams Time Broker Relationship Specialty Start Date End Date Pancho Reno MD [address] [place] [address] [place] [address] PCP - General Internal Medicine 12/16/21 Additional Source Comments The information contained in this document represents components of the legal health record. It is not the complete legal health record.[facility]
== END 2025-09-16 10:51 | disposition home or self-care (01) ==
LOC: HO.HMCHD 09:58
PROVIDERS: PCP Internal Medicine; Visit Provider Physician Assistant Medical
DX: I10 Essential (primary) hypertension (principal); I47.10 Supraventricular tachycardia, unspecified; H93.19 Tinnitus, unspecified ear; M06.9 Rheumatoid arthritis, unspecified; B18.1 Chronic viral hepatitis B without delta-agent; Z12.11 Encounter for screening for malignant neoplasm of colon

== ENCOUNTER 2025-09-23 09:59 | Outpatient (AMB) | payer OTHER, SELFPAY ==
--- NOTE | 2025-09-23 10:23 | A.OFFVIS_ITS ---
Vital Signs 09/23/25 10:26 Height 5 ft 9 in Weight 197 lb 8.547 oz BMI 29.2 BP 110/64 Blood Pressure Location Lt brachial Position Sitting Pulse 72 Pulse Source Pulse Oximeter Intake Visit Reasons: 6 mth f/up Intake Note: 6 mth f/up Medical Secretary Receptionist Required: No Accompanied by: Self / Same As Patient Allergies No Known Allergies Allergy (Verified 09/16/25 10:04) Medication List - Last Reconciled 09/23/25 by Davian Reyes MD aspirin 81 mg PO DAILY cetirizine (Zyrtec) 10 mg PO DAILY PRN losartan 25 mg PO DAILY metoprolol succinate ER 50 mg PO DAILY mexiletine 200 mg PO BID 90 days omeprazole 20 mg PO BID tenofovir disoproxil fumarate (Viread) 300 mg PO DAILY HPI Comments Details: [age] year gentleman who is here for follow-up. He has background history of supraventricular tachycardia for which she underwent ablation. Subsequent to that he was noticed to have frequent premature ventricular complexes and it was thought that PVCs were the trigger for SVT. He was symptomatic from PVCs and had assessment done at [facility] where he was started on mexiletine and he did well since then. He continues to take mexiletine but he misses the dose he starts feeling the palpitations. It appears he is quite dependent on the medication currently. No dizziness or syncope. No chest discomfort. [facility] Medical History Rheumatoid arthritis Hepatitis B Acid reflux Colon cancer screening Tinnitus High cholesterol HTN (hypertension) Arthritis Surgical History History of hernia surgery Family History Mother CAD (coronary artery disease) Father No problems noted. Social History Housing: Condominium Alcohol intake: never Patient Tobacco Use Status: Never used Tobacco e-Cigarette/Vaping Use: Never Used service: No Current occupational status: unemployed Cognitive needs: No Hearing needs: No Vision needs: Yes (reading glasses) Review of Systems Const Denies chills, Denies fatigue, Denies fever(s), Denies frequent falls, Denies weakness, Denies weight gain and Denies weight loss ENT Denies dizziness Card Denies chest pain, Denies leg edema, Denies lightheadedness, Denies palpitations, Denies dyspnea and Denies dyspnea on exertion Resp Denies cough, Denies dyspnea and Denies dyspnea on exertion GI Denies hematochezia Musc Denies abnormal gait, Denies muscle weakness, Denies numbness, Denies radiating pain into limb and Denies tingling Neuro Denies abnormal gait, Denies dizziness, Denies frequent falls, Denies numbness, Denies tingling and Denies weakness Endo Denies fatigue and Denies palpitations Physical Exam Vital Signs: Last Vital Signs Pulse 72 09/23/25 10:26 BP 110/64 09/23/25 10:26 BMI result Body Mass Index 29.2 GENERAL APPEARANCE: in no acute distress, pleasant. NECK: no carotid bruit, no jugular venous distention. SKIN: no suspicious lesions, warm and dry. HEART: no murmurs, regular rate and rhythm. LUNGS: clear to auscultation bilaterally. ABDOMEN: soft, nontender. EXTREMITIES: no edema. PERIPHERAL PULSES: equal. NEUROLOGIC: No gross deficits, AAO X 3 Assessment & Plan Assessment & Plan (1) HTN (hypertension): Comment: BP today was 118/71 Code(s): I10 - Essential (primary) hypertension Category: Medical (2) Premature ventricular complex: Code(s): I49.3 - Ventricular premature depolarization Category: Medical Plan Pleasant 59 year gentleman who is here for follow-up. He has background history of supraventricular tachycardia for which he underwent ablation successfully. He has frequent premature ventricular complexes and he was symptomatic from PVCs and had assessment in [place] where mexiletine was started. He has been doing well since then. He is quite dependent on mexiletine and if he misses a dose he starts getting the palpitations. I have discussed with him that mexiletine in his a long-term drug for him given the fact that he gets quite symptomatic when he misses even the dose for few hours. I have proposed to him that ablation can be a possibility for him in case he wishes to get off the medicine or not be dependent on medicine middle or [employer] principal. He currently feels that he is doing fine with mexiletine and we will continue the medication. We will see him back in few months. Thank you for allowing me to participate in the care of your patient. Please feel free to contact me if you have any questions. Coding Level of Care Code Est Pt Level 4 (56497) Diagnoses HTN (hypertension) I10 Premature ventricular complex I49.3
[2025-09-23 10:26] VITALS: BP 110/64; PULSE 72; BMI 29.2
== END 2025-09-23 10:48 | disposition home or self-care (01) ==
LOC: HO.HCS 09:59
PROVIDERS: PCP Internal Medicine; Visit Provider Internal Medicine Cardiovascular Disease
DX: I10 Essential (primary) hypertension (principal); I49.3 Ventricular premature depolarization
CPT/HCPCS: 99214

== ENCOUNTER → 2025-09-23 09:59 | Outpatient (BNVA) | payer OTHER, SELFPAY | PROVIDERS: PCP Internal Medicine; Visit Provider Internal Medicine Cardiovascular Disease | DX: I10 Essential (primary) hypertension (principal); I49.3 Ventricular premature depolarization | CPT/HCPCS: 99212 ==